=== PATIENT | male | born 1950 | race Caucasian/White ===

== ENCOUNTER 2017-03-09 14:10 | Outpatient (RCR) | payer MEDICARE, SELFPAY ==
[2017-03-09 14:59] LABS: Absolute Lymphocyte Count 1.88 X10^3/ul (0.83-4.51); Absolute Neutrophil Count 4.2 X10^3/uL (2.0-7.7); Basophil# 0.02 X10^3/uL; Basophil% 0.3 % (0-1); Eosinophil# 0.12 X10^3/uL; Eosinophils% 1.7 % (0-5); Hematocrit 41.4 % (40-54); Hemoglobin 14.1 g/dl (13.0-16.5); Lymphocyte # 1.88 X10^3/ul (4.0); Lymphocyte % 26.6 % (19-41); Mean Corp Hgb Conc 34.1 g/gl (32-36); Mean Corpuscular Hgb 30.7 pg (27.0-32.0); Mean Corpuscular Volume 90.2 fL (80-94); Mean Platelet Vol. 9.8 fl (6.2-12.0); Monocyte# 0.87 X10^3/uL; Monocyte% 12.3 % (0-10); Neutrophil # 4.15 X10^3/uL (2.7-7.7); Neutrophil % 58.8 % (47-70); Platelet Count 279 K/mm3 (150-450); RBC Distribution Width CV 12.3 % (11.6-14.6); Red Blood Count 4.59 M/mm3 (4.6-6.2); White Blood Count 7.1 K/mm3 (4.4-11.0)
[2017-03-09 15:04] LABS: POSITIVE COUNT NO; POSITIVE DIFFERENTIAL NO; POSITIVE MORPHOLOGY NO
[2017-03-09 15:27] LABS: AST(SGOT) 28 U/L (15-37); Alanine Aminotransfer ALT/SGPT 26 U/L (12-78); Alkaline Phosphatase 79 U/L (45-117); Anion Gap 5 (5-15); BUN 16 mg/dL (7-18); BUN/Creat Ratio 14.8 RATIO (10-20); Calcium,Total 9.2 mg/dL (8.5-10.1); Chloride 101 mmol/L (98-107); Creatinine, Serum 1.08 mg/dL (0.70-1.30); EST Glomerular Filtration Rate 73 mL/min (>60); Est Glom Filt Rate - Afr Amer 88 mL/min (>60); GGTP 37 U/L (15-85); Globulin 4.2 g/dL (2.2-4.2); Glucose 98 mg/dL (70-110); Potassium 3.6 mmol/L (3.5-5.1); Protein, Total 8.2 g/dL (6.4-8.2); Sodium Level 139 mmol/L (136-145)
== END 2017-03-09 14:30 | disposition home or self-care (01) ==
LOC: LAB 14:10
PROVIDERS: Family Provider Family Medicine; PCP Family Medicine
DX: Z48.23 Encounter for aftercare following liver transplant (principal); K76.9 Liver disease, unspecified; Z94.4 Liver transplant status; Z41.8 Encounter for other procedures for purposes other than remedying health state; E61.2 Magnesium deficiency; E83.30 Disorder of phosphorus metabolism, unspecified; Z79.3 Long term (current) use of hormonal contraceptives; Z79.891 Long term (current) use of opiate analgesic; Z79.899 Other long term (current) drug therapy
CPT/HCPCS: 36415; 80053; 80197; 82977; 85025

== ENCOUNTER 2017-04-19 14:30 | Outpatient (RCR) | payer MEDICARE, SELFPAY ==
[2017-04-19 15:49] LABS: Absolute Lymphocyte Count 1.68 X10^3/ul (0.83-4.51); Absolute Neutrophil Count 3.1 X10^3/uL (2.0-7.7); Basophil# 0.03 X10^3/uL; Basophil% 0.5 % (0-1); Eosinophil# 0.15 X10^3/uL; Eosinophils% 2.7 % (0-5); Hematocrit 39.6 % (40-54); Lymphocyte # 1.68 X10^3/ul (4.0); Lymphocyte % 30.3 % (19-41); Mean Corp Hgb Conc 35.4 g/gl (32-36); Mean Corpuscular Hgb 31.7 pg (27.0-32.0); Mean Corpuscular Volume 89.6 fL (80-94); Mean Platelet Vol. 10.5 fl (6.2-12.0); Monocyte# 0.62 X10^3/uL; Monocyte% 11.2 % (0-10); Neutrophil # 3.05 X10^3/uL (2.7-7.7); Neutrophil % 55.1 % (47-70); Platelet Count 223 K/mm3 (150-450); RBC Distribution Width CV 12.5 % (11.6-14.6); RBC Distribution Width SD 40.3 fl (35.1-43.9); Red Blood Count 4.42 M/mm3 (4.6-6.2); White Blood Count 5.5 K/mm3 (4.4-11.0)
[2017-04-19 16:00] LABS: POSITIVE COUNT NO; POSITIVE DIFFERENTIAL NO; POSITIVE MORPHOLOGY NO
[2017-04-19 16:33] LABS: ALB/GLOB Ratio 1.1 RATIO (0.9-2.4); AST(SGOT) 29 U/L (15-37); Alanine Aminotransfer ALT/SGPT 32 U/L (16-61); Albumin, Serum 3.9 g/dL (3.2-5.0); Alkaline Phosphatase 65 U/L (45-117); Anion Gap 8 (5-15); BUN 23 mg/dL (7-18); BUN/Creat Ratio 19.2 RATIO (10-20); Calcium,Total 8.9 mg/dL (8.5-10.1); Chloride 103 mmol/L (98-107); EST Glomerular Filtration Rate 65 mL/min (>60); Est Glom Filt Rate - Afr Amer 78 mL/min (>60); GGTP 33 U/L (15-85); Globulin 3.7 g/dL (2.2-4.2); Glucose 104 mg/dL (74-106); Magnesium 2.3 mg/dL (1.6-2.6); Phosphorus 3.6 mg/dL (2.5-4.9); Potassium 3.7 mmol/L (3.5-5.1); Protein, Total 7.6 g/dL (6.4-8.2); Sodium Level 140 mmol/L (136-145)
[2017-04-23 07:46] LABS: Tacrolimus (FK506) 2.3 ng/mL (2.0-20.0)
== END 2017-04-19 15:00 | disposition home or self-care (01) ==
LOC: LAB 14:30
PROVIDERS: Family Provider Family Medicine; PCP Family Medicine
DX: K76.9 Liver disease, unspecified (principal); Z48.23 Encounter for aftercare following liver transplant; Z94.4 Liver transplant status; Z41.8 Encounter for other procedures for purposes other than remedying health state; E61.2 Magnesium deficiency; R73.02 Impaired glucose tolerance (oral)
CPT/HCPCS: 36415; 80053; 80197; 82977; 83735; 84100; 85025

== ENCOUNTER 2017-06-13 09:28 | Outpatient (RCR) | payer MEDICARE, SELFPAY ==
[2017-06-13 10:04] LABS: Absolute Lymphocyte Count 1.87 X10^3/ul (0.83-4.51); Absolute Neutrophil Count 3.8 X10^3/uL (2.0-7.7); Basophil# 0.03 X10^3/uL; Basophil% 0.5 % (0-1); Eosinophil# 0.09 X10^3/uL; Eosinophils% 1.4 % (0-5); Hematocrit 40.3 % (40-54); Hemoglobin 14.5 g/dl (13.0-16.5); Lymphocyte # 1.87 X10^3/ul (4.0); Lymphocyte % 29.7 % (19-41); Mean Corpuscular Hgb 31.5 pg (27.0-32.0); Mean Corpuscular Volume 87.6 fL (80-94); Mean Platelet Vol. 10.1 fl (6.2-12.0); Monocyte# 0.53 X10^3/uL; Monocyte% 8.4 % (0-10); Neutrophil # 3.77 X10^3/uL (2.7-7.7); Neutrophil % 59.8 % (47-70); Platelet Count 229 K/mm3 (150-450); RBC Distribution Width CV 12.3 % (11.6-14.6); White Blood Count 6.3 K/mm3 (4.4-11.0)
[2017-06-13 10:05] LABS: POSITIVE COUNT NO; POSITIVE DIFFERENTIAL NO; POSITIVE MORPHOLOGY NO
[2017-06-13 10:32] LABS: ALB/GLOB Ratio 1.1 RATIO (0.9-2.4); AST(SGOT) 28 U/L (15-37); Alanine Aminotransfer ALT/SGPT 27 U/L (16-61); Alkaline Phosphatase 67 U/L (45-117); Anion Gap 5 (5-15); BUN 18 mg/dL (7-18); BUN/Creat Ratio 12.6 RATIO (10-20); Calcium,Total 8.7 mg/dL (8.5-10.1); Chloride 104 mmol/L (98-107); Creatinine, Serum 1.43 mg/dL (0.70-1.30); EST Glomerular Filtration Rate 53 mL/min (>60); Est Glom Filt Rate - Afr Amer 64 mL/min (>60); GGTP 30 U/L (15-85); Globulin 3.6 g/dL (2.2-4.2); Glucose 104 mg/dL (74-106); Magnesium 2.2 mg/dL (1.6-2.6); Potassium 3.3 mmol/L (3.5-5.1); Protein, Total 7.6 g/dL (6.4-8.2); Sodium Level 140 mmol/L (136-145)
[2017-06-13 10:35] LABS: Prograf-FK506 TO CCF/UNIV MAILED SPECIMEN
== END 2017-06-13 10:00 | disposition home or self-care (01) ==
LOC: LAB 09:28
PROVIDERS: Family Provider Family Medicine; PCP Family Medicine
DX: K76.9 Liver disease, unspecified (principal); Z48.23 Encounter for aftercare following liver transplant; Z94.4 Liver transplant status; Z41.8 Encounter for other procedures for purposes other than remedying health state; E61.2 Magnesium deficiency; R73.02 Impaired glucose tolerance (oral)
CPT/HCPCS: 36415; 80053; 82977; 83735; 84100; 85025

== ENCOUNTER 2017-07-06 10:04 | Outpatient (RCR) | payer MEDICARE, SELFPAY ==
[2017-07-06 11:09] LABS: Absolute Lymphocyte Count 1.75 X10^3/ul (0.83-4.51); Absolute Neutrophil Count 2.9 X10^3/uL (2.0-7.7); Basophil# 0.02 X10^3/uL; Basophil% 0.4 % (0-1); Eosinophils% 1.9 % (0-5); Hematocrit 41.6 % (40-54); Hemoglobin 14.5 g/dl (13.0-16.5); Lymphocyte # 1.75 X10^3/ul (4.0); Lymphocyte % 33.6 % (19-41); Mean Corp Hgb Conc 34.9 g/gl (32-36); Mean Corpuscular Hgb 31.3 pg (27.0-32.0); Mean Corpuscular Volume 89.7 fL (80-94); Mean Platelet Vol. 10.1 fl (6.2-12.0); Monocyte# 0.47 X10^3/uL; Neutrophil # 2.86 X10^3/uL (2.7-7.7); Neutrophil % 54.9 % (47-70); Platelet Count 241 K/mm3 (150-450); RBC Distribution Width CV 12.5 % (11.6-14.6); RBC Distribution Width SD 40.9 fl (35.1-43.9); Red Blood Count 4.64 M/mm3 (4.6-6.2); White Blood Count 5.2 K/mm3 (4.4-11.0)
[2017-07-06 11:12] LABS: POSITIVE COUNT NO; POSITIVE DIFFERENTIAL NO; POSITIVE MORPHOLOGY NO
[2017-07-06 12:07] LABS: ALB/GLOB Ratio 1.2 RATIO (0.9-2.4); AST(SGOT) 30 U/L (15-37); Alanine Aminotransfer ALT/SGPT 29 U/L (16-61); Alkaline Phosphatase 68 U/L (45-117); Anion Gap 5 (5-15); BUN 16 mg/dL (7-18); Calcium,Total 9.1 mg/dL (8.5-10.1); Chloride 103 mmol/L (98-107); Cholesterol 159 mg/dL (200); Creatinine, Serum 1.14 mg/dL (0.70-1.30); EST Glomerular Filtration Rate 68 mL/min (>60); Est Glom Filt Rate - Afr Amer 83 mL/min (>60); GGTP 34 U/L (15-85); Globulin 3.3 g/dL (2.2-4.2); Glucose 89 mg/dL (74-106); High Density Lipoprotein 48 mg/dL; Magnesium 2.1 mg/dL (1.6-2.6); Phosphorus 2.7 mg/dL (2.5-4.9); Potassium 3.7 mmol/L (3.5-5.1); Protein, Total 7.3 g/dL (6.4-8.2); Sodium Level 138 mmol/L (136-145); Triglycerides 121 mg/dL; Very Low Density Lipoprotein 24 mg/dL (5-40)
[2017-07-08 09:25] LABS: Tacrolimus (FK506) 3.1 ng/mL (2.0-20.0)
== END 2017-07-06 11:00 | disposition home or self-care (01) ==
LOC: LAB 10:04
PROVIDERS: Family Provider Family Medicine; PCP Family Medicine
DX: K76.9 Liver disease, unspecified (principal); Z48.23 Encounter for aftercare following liver transplant; Z94.4 Liver transplant status; Z41.8 Encounter for other procedures for purposes other than remedying health state; E61.2 Magnesium deficiency; R73.02 Impaired glucose tolerance (oral)
CPT/HCPCS: 80053; 80061; 80197; 82977; 83735; 84100; 85025

== ENCOUNTER 2017-07-08 18:46 | Emergency (ER) | payer MEDICARE, SELFPAY ==
[2017-07-08 18:47] VITALS: BP 138/97; PULSE 86; RESP 16; TEMP 36.8; O2SAT 96; BMI 23.0
--- NOTE | 2017-07-08 19:57 | RAD_ITS ---
STUDY: X-RAY - LEFT HAND REASON FOR EXAM: Male, 66 years old. Puncture wound. TECHNIQUE: 3 view(s) of the hand. COMPARISON: None. FINDINGS: Normal radiocarpal articulation. Normal distal radioulnar joint. Normal visualized carpal bones. Normal carpal articulations Normal carpometacarpal articulation of the thumb. Normal second through fifth carpometacarpal joints. Normal metacarpi. Normal metacarpophalangeal joint of the thumb. Normal interphalangeal joint of the thumb. Normal proximal and distal phalanges of the thumb. Normal metacarpophalangeal joints of the second through fifth fingers. Normal proximal and distal interphalangeal joints of the second through fifth fingers. Normal phalanges of the second through fifth fingers. The soft tissue structures are unremarkable. No radiopaque foreign body. RAD/Hand Min 3 Views IMPRESSION: Normal x-ray examination of the hand. Electronically Signed: Rohit Ghosh MD at 20:29 EDT , Service support ,
--- NOTE | 2017-07-08 19:58 | ED.VISSUMM ---
- ER Visit Summary Date of Service: 07/08/17 Chief Complaint: Left third finger injury History of Present Illness: The patient is a 66 M puncture wound left middle finger yesterday while planting. Metal wire through the finger. Tetanus more than 20 years ago. 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 Not a diabetic. No fevers. No drainage. No significant tenderness there is been increased swelling. Think he may be on Bactrim every 3 days for prophylaxis. Do for dose today. No allergies. Physical Examination: General: Alert and oriented ?3, no acute distress HEENT: Normocephalic, atraumatic. Moist mucosa membranes Neck: supple, nontender. Cardiovascular: Regular rate and rhythm, no murmurs Respiratory: Normal breath sounds, symmetric, no distress Abdomen: Soft, nontender, nondistended Extremities: Nontender, no edema, pulses intact ?4. Left hand: Puncture at the proximal phalanx volar third middle finger. There is slight swelling. There is no streaking into the hand. There is redness of the dorsal MCP. Neuro: no focal neurological deficits. Test Results: Left hand x-ray: No radiopaque foreign bodies Emergency Department Course and Treatment: Tetanus updated. Kanavel's 1 out of 4. I did outline the erythema. Left hand x-ray obtained. No radiopaque foreign bodies. Patient confirmed he is on Bactrim DS. He took tonight's dose in the ED. He started on Keflex. Given 10 day prescription. Discussed signs and symptoms of worsening cellulitis fevers to return to ED for evaluation. Patient understands and agrees with plan. Treatment Plan: [] Disposition: Discharge Impression: 1. Left middle finger puncture wound 2. Left middle finger cellulitis This note was generated with [employer] dictation software. It may contain incorrect words, spelling, and punctuation that were not noted in review of the chart prior to signing ED Disposition - Plan for ED Patient: Disposition: Home or Assisted Living Chief Complaint: Cellulitis Diagnosis: Puncture wound of left middle finger, Cellulitis of left middle finger Instructions: Discharge Instructions for Cellulitis, ED Wound Puncture General Prescriptions: Cephalexin [Keflex] 500 mg PO Q6 #40 capsule Smz/Tmp Ds [Bactrim Ds] 1 tablet PO BID #20 tablet Referrals: Asif Mullins MD [Primary Care Provider] - 3-5 Days
[2017-07-08] MEDS: Diphth,Pertuss(Acell),Tet Vac 0.5 ML Vial IM (20:31)
[2017-07-08] MEDS: Cephalexin 250 MG Capsule 500 MG PO (21:14)
[2017-07-08 21:16] VITALS: RESP 16
--- NOTE | 2017-07-08 21:17 | ED.RN ---
REVIEWED D/C INSTRUCTIONS, FOLLOW UP CARE, PRESCRIPTIONS, AND S/S THAT WOULD WARRANT A RETURN TO THE ED WITH PT. PT VERBALIZED AN UNDERSTANDING AND DENIES FURTHER QUESTIONS FOR THIS RN. PT SKIN P/W/D, RESP EVEN AND UNLABORED, PT A&O X 3, NO DISTRESS NOTED. PT AMBULATED OUT OF ED, GAIT STEADY.
== END 2017-07-08 21:18 | disposition home or self-care (01) ==
PROVIDERS: Emergency Provider Emergency Medicine; Family Provider Family Medicine; PCP Family Medicine
DX: S61.333A Puncture wound without foreign body of left middle finger with damage to nail, initial encounter (principal); L03.012 Cellulitis of left finger; W26.8XXA Contact with other sharp object(s), not elsewhere classified, initial encounter; Y93.H2 Activity, gardening and landscaping; Y92.9 Unspecified place or not applicable; Y99.9 Unspecified external cause status; Z94.4 Liver transplant status; Z85.05 Personal history of malignant neoplasm of liver; Z23 Encounter for immunization
CPT/HCPCS: 73130; 90471; 90715; 99283

== ENCOUNTER 2017-11-12 16:18 | Outpatient (RCR) | payer MEDICARE, SELFPAY ==
[2017-11-12 17:24] LABS: Absolute Lymphocyte Count 2.33 X10^3/ul (0.83-4.51); Absolute Neutrophil Count 3.7 X10^3/uL (2.0-7.7); Basophil# 0.04 X10^3/uL; Basophil% 0.6 % (0-1); Eosinophils% 1.5 % (0-5); Hematocrit 43.8 % (40-54); Hemoglobin 14.8 g/dl (13.0-16.5); Lymphocyte # 2.33 X10^3/ul (4.0); Mean Corp Hgb Conc 33.8 g/gl (32-36); Mean Corpuscular Hgb 30.6 pg (27.0-32.0); Mean Corpuscular Volume 90.5 fL (80-94); Mean Platelet Vol. 10.1 fl (6.2-12.0); Monocyte# 0.44 X10^3/uL; Monocyte% 6.6 % (0-10); Neutrophil # 3.73 X10^3/uL (2.7-7.7); Neutrophil % 56.1 % (47-70); Platelet Count 238 K/mm3 (150-450); RBC Distribution Width CV 12.6 % (11.6-14.6); RBC Distribution Width SD 41.6 fl (35.1-43.9); Red Blood Count 4.84 M/mm3 (4.6-6.2); White Blood Count 6.7 K/mm3 (4.4-11.0)
[2017-11-12 17:38] LABS: POSITIVE COUNT NO; POSITIVE DIFFERENTIAL NO; POSITIVE MORPHOLOGY NO
[2017-11-12 18:25] LABS: ALB/GLOB Ratio 1.1 RATIO (0.9-2.4); AST(SGOT) 36 U/L (15-37); Alanine Aminotransfer ALT/SGPT 38 U/L (16-61); Albumin, Serum 4.1 g/dL (3.2-5.0); Alkaline Phosphatase 72 U/L (45-117); Anion Gap 11 (5-15); BUN 18 mg/dL (7-18); BUN/Creat Ratio 14.5 RATIO (10-20); Chloride 100 mmol/L (98-107); Creatinine, Serum 1.24 mg/dL (0.70-1.30); EST Glomerular Filtration Rate 62 mL/min (>60); Est Glom Filt Rate - Afr Amer 75 mL/min (>60); GGTP 42 U/L (15-85); Globulin 3.9 g/dL (2.2-4.2); Glucose 87 mg/dL (74-106); Magnesium 2.3 mg/dL (1.6-2.6); Phosphorus 3.2 mg/dL (2.5-4.9); Potassium 3.6 mmol/L (3.5-5.1); Sodium Level 143 mmol/L (136-145)
[2017-11-16 08:52] LABS: Tacrolimus (FK506) 2.7 ng/mL (2.0-20.0)
== END 2017-11-12 17:00 | disposition home or self-care (01) ==
LOC: LAB 16:18
PROVIDERS: Family Provider Family Medicine; PCP Family Medicine
DX: K76.9 Liver disease, unspecified (principal); Z48.23 Encounter for aftercare following liver transplant; Z94.4 Liver transplant status; Z41.8 Encounter for other procedures for purposes other than remedying health state; E61.2 Magnesium deficiency; R73.02 Impaired glucose tolerance (oral)
CPT/HCPCS: 36415; 80053; 80197; 82977; 83735; 84100; 85025

== ENCOUNTER 2018-01-28 16:29 | Outpatient (RCR) | payer MEDICARE, SELFPAY ==
[2018-01-28 17:41] LABS: Prothrombin Time (Protime)PT. 13.5 SECONDS (11.7-14.9)
[2018-01-28 17:43] LABS: Absolute Neutrophil Count 4.5 X10^3/uL (2.0-7.7); Basophil# 0.02 X10^3/uL; Basophil% 0.3 % (0-1); Eosinophils% 1.4 % (0-5); Hematocrit 42.5 % (40-54); Hemoglobin 14.6 g/dl (13.0-16.5); Lymphocyte % 28.4 % (19-41); Mean Corp Hgb Conc 34.4 g/gl (32-36); Mean Corpuscular Hgb 30.8 pg (27.0-32.0); Mean Corpuscular Volume 89.7 fL (80-94); Mean Platelet Vol. 10.3 fl (6.2-12.0); Monocyte# 0.64 X10^3/uL; Monocyte% 8.6 % (0-10); Neutrophil # 4.53 X10^3/uL (2.7-7.7); Neutrophil % 61.2 % (47-70); POSITIVE COUNT NO; POSITIVE DIFFERENTIAL NO; POSITIVE MORPHOLOGY NO; Platelet Count 244 K/mm3 (150-450); RBC Distribution Width CV 12.5 % (11.6-14.6); RBC Distribution Width SD 40.6 fl (35.1-43.9); Red Blood Count 4.74 M/mm3 (4.6-6.2); White Blood Count 7.4 K/mm3 (4.4-11.0)
[2018-01-28 17:49] LABS: ALB/GLOB Ratio 1.1 RATIO (0.9-2.4); AST(SGOT) 27 U/L (15-37); Alanine Aminotransfer ALT/SGPT 29 U/L (16-61); Albumin, Serum 4.2 g/dL (3.2-5.0); Alkaline Phosphatase 71 U/L (45-117); Anion Gap 6 (5-15); BUN 14 mg/dL (7-18); BUN/Creat Ratio 12.7 RATIO (10-20); Calcium,Total 9.1 mg/dL (8.5-10.1); Chloride 99 mmol/L (98-107); Cholesterol 176 mg/dL (200); EST Glomerular Filtration Rate 71 mL/min (>60); Est Glom Filt Rate - Afr Amer 86 mL/min (>60); GGTP 39 U/L (15-85); Globulin 3.9 g/dL (2.2-4.2); Glucose 83 mg/dL (74-106); High Density Lipoprotein 45 mg/dL; Phosphorus 3.4 mg/dL (2.5-4.9); Potassium 3.7 mmol/L (3.5-5.1); Protein, Total 8.1 g/dL (6.4-8.2); Sodium Level 136 mmol/L (136-145); Triglycerides 161 mg/dL; Very Low Density Lipoprotein 32 mg/dL (5-40)
[2018-01-28 17:53] LABS: Partial Thromboplast Time 30.6 Seconds (24.1-36.2)
--- OUTSIDE RECORDS SUMMARY | 2018-03-12 15:49 | XMS RPT_ITS ---
:1950 Author Organization OHIP Care Team Providers Name Role Phone YULIANA SINGLETON Referring Unavailable Mullins, Asif Primary Care Unavailable YULIANA SINGLETON Attending Unavailable YULIANA SINGLETON Attending Unavailable Mullins, Asif Primary Care Unavailable YULIANA SINGLETON Referring Unavailable YULIANA SINGLETON Attending Unavailable YULIANA SINGLETON Referring Unavailable Mullins, Asif Primary Care Unavailable YULIANA SINGLETON Attending Unavailable YULIANA SINGLETON Referring Unavailable Mullins, Asif Primary Care Unavailable Mullins, Asif Primary Care Unavailable Vinicius Elliott Attending Unavailable YULIANA SINGLETON Attending Unavailable YULIANA SINGLETON Referring Unavailable Mullins, Asif Primary Care Unavailable YULIANA SINGLETON Attending Unavailable YULIANA SINGLETON Referring Unavailable Mullins, Asif Primary Care Unavailable YULIANA SINGLETON Attending Unavailable YULIANA SINGLETON Referring Unavailable Asif Mullins Primary Care Unavailable PROBLEMS PROBLEMS DATE TYPE CONDITION / CODE ATTENDING STATUS SOURCE 02/04/2018 Unknown Z48.23 - YULIANA SINGLETON Active [facility] Encounter for [facility] following liver Repository transplant / Z48.23(ICD-10) 02/04/2018 Unknown 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 [facility] metabolism, Hospital unspecified / Repository E83.30(ICD-10) 12/05/2017 Unknown K76.9 - Liver YULIANA SINGLETON Active [facility] disease, Community unspecified / Hospital K76.9(ICD-10) Repository 11/08/2017 Unknown S69.82XA - Other Vinicius Elliott Active [facility] specified Community injuries of left Hospital wrist, hand and Repository finger(s), initial encounter / S69.82XA(ICD-10) PROCEDURES PROCEDURES No Procedure Records FoundRESULTS RESULTS CBC W/DIFF, AUTOMATED Collected: 01/28/2018 Status: F Source: [place] 4:30 PM [facility] REPOSITORY TYPE CODE TESTS RESULT OUT OF RANGE REFERENCE UNITS LAB L100.1000 4.4-11.0 K/mm3 Normal WBC 7.4 LAB L100.1200 4.6-6.2 M/mm3 Normal RBC 4.74 LAB L100.1300 13.0-16.5 g/dl Normal HGB 14.6 LAB L100.1400 40-54 % Normal HCT 42.5 LAB L100.1500 80-94 fL Normal MCV 89.7 LAB L100.1600 27.0-32.0 pg Normal MCH 30.8 LAB L100.1700 32-36 g/gl Normal MCHC 34.4 LAB L100.1810 11.6-14.6 % Normal RDW CV 12.5 LAB L100.1820 35.1-43.9 fl Normal RDW SD 40.6 LAB L100.1900 150-450 K/mm3 Normal PLT 244 LAB L100.2000 6.2-12.0 fl Normal MPV 10.3 LAB L100.2100 47-70 % Normal NEUT% 61.2 LAB L100.2200 19-41 % Normal LY% 28.4 LAB L100.2300 0-10 % Normal MONO% 8.6 LAB L100.2400 0-5 % Normal EO% 1.4 LAB L100.2500 0-1 % Normal BASO% 0.3 LAB L100.2550 0.0-0.9 % Normal IM GRAN % 0.100 Result Comment: IG% - Immature Granulocytes (promyelocytes, myelocytes and metamyelocytes) > 1% indicates that a LEFT SHIFT is Present. LAB L100.2620 2.0-7.7 X10 3/uL Normal Absolute Neut 4.5 LAB L100.2720 0.83-4.51 X10 3/ul Normal Absolute Lymph 2.10 Performed By: #### L100.0100 #### [facility] [address] [place], [address] COMPREHENSIVE METABOLIC Collected: 01/28/2018 Status: F Source: [facility] 4:30 PM [facility] REPOSITORY Order Comment: Comments: [id number] HBV QUANT BY PCR SER FZ TYPE CODE TESTS RESULT OUT OF RANGE REFERENCE UNITS LAB L501.0100 74-106 mg/dL Normal GLU 83 Result Comment: Please note revised GLUCOSE reference range effective 2017. LAB L501.1000 7-18 mg/dL Normal BUN 14 LAB L501.1100 0.70-1.30 mg/dL Normal CREAT,SERUM 1.10 Result Comment: The validity of the calculated GFR AND GFRAA in patients over 70 years has not been determined. Clinical correlation is essential. LAB L501.1110 >60 mL/min Normal EST GFR 71 Result Comment: Non- GFR Calc LAB L501.1115 >60 mL/min Normal EST GFR - AA 86 Result Comment: GFR Calc LAB L501.1300 10-20 RATIO Normal BUN/CRE 12.7 LAB L501.1500 6.4-8.2 g/dL T Normal PROT 8.1 LAB L501.1800 3.2-5.0 g/dL Normal ALB 4.2 LAB L501.1950 2.2-4.2 g/dL Normal GLOB 3.9 LAB L501.2000 0.9-2.4 RATIO Normal A/G 1.1 LAB L501.2200 8.5-10.1 mg/dL CA Normal 9.1 LAB L501.4100 15-37 U/L Normal AST 27 LAB L501.4305 45-117 U/L Normal ALK P 71 LAB L501.4405 16-61 U/L Normal ALT 29 LAB L501.4600 0.20-1.00 mg/dL T Normal BILI 0.70 LAB L501.5300 136-145 mmol/L NA Normal 136 LAB L501.5600 3.5-5.1 mmol/L K Normal 3.7 LAB L501.5900 98-107 mmol/L CL Normal 99 LAB L501.6100 21.0-32.0 mmol/L Normal CO2 31.0 LAB L501.6200 5-15 Normal GAP 6 Performed By: #### L500.4050, L500.4100, L501.2300, L501.5100, L501.5200 #### [facility] [address] [place], [place], [id number] LIPID PROFILE Collected: 01/28/2018 Status: F Source: [place] 4:30 PM [facility] REPOSITORY Order Comment: Comments: [id number] HBV QUANT BY PCR SER FZ TYPE CODE TESTS RESULT OUT OF RANGE REFERENCE UNITS LAB L501.4900 200 mg/dL Normal CHOL 176 Result Comment: <200 mg/dL Desirable 200-240 mg/dL Borderline >240 mg/dL High Risk LAB L501.5000 mg/dL Normal TRIG 161 Result Comment: The drugs N-Acetylcysteine and Metamizole may falsely depress this assay. Serum Triglycerides Reference Interval Normal <150 mg/dL Borderline high 150 - 199 mg/dL High 200 - 499 mg/dL Very High > or = 500 mg/dL LAB L501.6400 mg/dL Normal HDL 45 Result Comment: The drugs N-Acetylcysteine and Metamizole may falsely depress this assay. Reference Range HDL <40 mg/dL Low HDL Cholesterol HDL >or= 60 mg/dL High HDL Cholesterol LAB L501.6500 0-130 mg/dL Normal LDL 99 LAB L501.6600 5-40 mg/dL Normal VLDL 32 Performed By: #### L500.4050, L500.4100, L501.2300, L501.5100, L501.5200 #### [facility] [address] [place], [address] PHOSPHORUS Collected: 01/28/2018 Status: F Source: [place] 4:30 PM [facility] REPOSITORY Order Comment: Comments: [id number] HBV QUANT BY PCR SER FZ TYPE CODE TESTS RESULT OUT OF RANGE REFERENCE UNITS LAB L501.2300 2.5-4.9 mg/dL Normal PHOS 3.4 Performed By: #### L500.4050, L500.4100, L501.2300, L501.5100, L501.5200 #### [facility] [address] [place], [place], [address] GGTP Collected: 01/28/2018 Status: F Source: [place] 4:30 PM [facility] REPOSITORY Order Comment: Comments: [id number] HBV QUANT BY PCR SER FZ TYPE CODE TESTS RESULT OUT OF RANGE REFERENCE UNITS LAB L501.5100 15-85 U/L Normal GGTP 39 Performed By: #### L500.4050, L500.4100, L501.2300, L501.5100, L501.5200 #### [facility] [place], [place], [id number] MAGNESIUM Collected: 01/28/2018 Status: F Source: [place] 4:30 PM [facility] REPOSITORY Order Comment: Comments: [id number] HBV QUANT BY PCR SER FZ TYPE CODE TESTS RESULT OUT OF RANGE REFERENCE UNITS LAB L501.5200 1.6-2.6 mg/dL Normal MG 2.0 Performed By: #### L500.4050, L500.4100, L501.2300, L501.5100, L501.5200 #### [facility] [address] [place], [place], [id number] PROTHROMBIN TIME W/INR Collected: 01/28/2018 Status: F Source: [place] 4:30 PM [facility] REPOSITORY TYPE CODE TESTS RESULT OUT OF RANGE REFERENCE UNITS LAB L300.4150 11.7-14.9 SECONDS Normal PROTIME 13.5 LAB L300.4200 Normal INR 1.0 Performed By: #### L300.3900, L300.4310 #### [facility] [address] [place], [address] PARTIAL THROMBOPLAST Collected: 01/28/2018 Status: F Source: [place] TIME 4:30 PM [facility] REPOSITORY TYPE CODE TESTS RESULT OUT OF RANGE REFERENCE UNITS LAB L300.4310 24.1-36.2 Seconds Normal PTT 30.6 Performed By: #### L300.3900, L300.4310 #### [facility] [address] [place], [address] MISCELLANEOUS LAB Collected: 01/28/2018 Status: F Source: [place] PROCEDURE 4:30 PM [facility] REPOSITORY Order Comment: Comments: [id number] HBV QUANT BY PCR SER FZ Test(s) Ordered: [id number] HBV QUANT BY PCR SER FZ TYPE CODE TESTS RESULT OUT OF RANGE REFERENCE UNITS LAB L801.1541 Normal MISC LAB TEST Result Comment: TEST RESULT LIMITS HBV Real-Time PCR, Quant HBV IU/mL HBV DNA not detected IU/mL log10 HBV IU/mL Unable to calculate result since non-numeric result obtained for component test. Test Information: The reportable range for this assay is 10 IU/mL to 1 billion IU/mL. TESTING PERFORMED AT [facility]. ORIGINAL REPORT ON FILE IN LAB CONTAINS ADDITIONAL TEST SITE INFORMATION. Performed By: #### L801.1541 #### [facility] [address] [place], [address] TACROLIMUS (PROGRAF) Collected: 01/28/2018 Status: F Source: [place] 4:30 PM [facility] REPOSITORY TYPE CODE TESTS RESULT OUT OF RANGE REFERENCE UNITS LAB L3380.1100 2.0-20.0 ng/mL Normal TACROLIMUS 3.0 Result Comment: Trough (immediately following transplant) 15.0 Trough (steady state, 2 weeks or more after transplant): 3.0 - 8.0 Detection Limit = 1.0 Performed by LC-MS/MS technology. Performed at: [address] [id number] Metal Miner: Ahmet Stewart MD, Phone: [phone] Performed By: #### L3380.1000 #### [facility] (refer to report for specific site) refer to report for address and phone number CBC W/DIFF, AUTOMATED Collected: 11/12/2017 Status: F Source: [place] 4:21 PM [facility] REPOSITORY TYPE CODE TESTS RESULT OUT OF RANGE REFERENCE UNITS LAB L100.1000 4.4-11.0 K/mm3 Normal WBC 6.7 LAB L100.1200 4.6-6.2 M/mm3 Normal RBC 4.84 LAB L100.1300 13.0-16.5 g/dl Normal HGB 14.8 LAB L100.1400 40-54 % Normal HCT 43.8 LAB L100.1500 80-94 fL Normal MCV 90.5 LAB L100.1600 27.0-32.0 pg Normal MCH 30.6 LAB L100.1700 32-36 g/gl Normal MCHC 33.8 LAB L100.1810 11.6-14.6 % Normal RDW CV 12.6 LAB L100.1820 35.1-43.9 fl Normal RDW SD 41.6 LAB L100.1900 150-450 K/mm3 Normal PLT 238 LAB L100.2000 6.2-12.0 fl Normal MPV 10.1 LAB L100.2100 47-70 % Normal NEUT% 56.1 LAB L100.2200 19-41 % Normal LY% 35.0 LAB L100.2300 0-10 % Normal MONO% 6.6 LAB L100.2400 0-5 % Normal EO% 1.5 LAB L100.2500 0-1 % Normal BASO% 0.6 LAB L100.2550 0.0-0.9 % Normal IM GRAN % 0.200 Result Comment: IG% - Immature Granulocytes (promyelocytes, myelocytes and metamyelocytes) > 1% indicates that a LEFT SHIFT is Present. LAB L100.2620 2.0-7.7 X10 3/uL Normal Absolute Neut 3.7 LAB L100.2720 0.83-4.51 X10 3/ul Normal Absolute Lymph 2.33 Performed By: #### L100.0100 #### [facility] [address] [place], [address] COMPREHENSIVE METABOLIC Collected: 11/12/2017 Status: F Source: [place] [facility] 4:21 PM [facility] REPOSITORY TYPE CODE TESTS RESULT OUT OF RANGE REFERENCE UNITS LAB L501.0100 74-106 mg/dL Normal GLU 87 Result Comment: Please note revised GLUCOSE reference range effective 2017. LAB L501.1000 7-18 mg/dL Normal BUN 18 LAB L501.1100 0.70-1.30 mg/dL Normal CREAT,SERUM 1.24 Result Comment: The validity of the calculated GFR AND GFRAA in patients over 70 years has not been determined. Clinical correlation is essential. LAB L501.1110 >60 mL/min Normal EST GFR 62 Result Comment: Non- GFR Calc LAB L501.1115 >60 mL/min Normal EST GFR - AA 75 Result Comment: GFR Calc LAB L501.1300 10-20 RATIO Normal BUN/CRE 14.5 LAB L501.1500 6.4-8.2 g/dL T Normal PROT 8.0 LAB L501.1800 3.2-5.0 g/dL Normal ALB 4.1 LAB L501.1950 2.2-4.2 g/dL Normal GLOB 3.9 LAB L501.2000 0.9-2.4 RATIO Normal A/G 1.1 LAB L501.2200 8.5-10.1 mg/dL CA Normal 9.0 LAB L501.4100 15-37 U/L Normal AST 36 LAB L501.4305 45-117 U/L Normal ALK P 72 LAB L501.4405 16-61 U/L Normal ALT 38 LAB L501.4600 0.20-1.00 mg/dL T Normal BILI 0.40 LAB L501.5300 136-145 mmol/L NA Normal 143 LAB L501.5600 3.5-5.1 mmol/L K Normal 3.6 LAB L501.5900 98-107 mmol/L CL Normal 100 LAB L501.6100 21.0-32.0 mmol/L Normal CO2 32.0 LAB L501.6200 5-15 Normal GAP 11 Performed By: #### L500.4050, L501.2300, L501.5100, L501.5200 #### [facility] [address] [place], [address] PHOSPHORUS Collected: 11/12/2017 Status: F Source: [place] 4:21 PM [facility] REPOSITORY TYPE CODE TESTS RESULT OUT OF RANGE REFERENCE UNITS LAB L501.2300 2.5-4.9 mg/dL Normal PHOS 3.2 Performed By: #### L500.4050, L501.2300, L501.5100, L501.5200 #### [facility] [address] [place], [address] GGTP Collected: 11/12/2017 Status: F Source: [place] 4:21 PM [facility] REPOSITORY TYPE CODE TESTS RESULT OUT OF RANGE REFERENCE UNITS LAB L501.5100 15-85 U/L Normal GGTP 42 Performed By: #### L500.4050, L501.2300, L501.5100, L501.5200 #### [facility] [address] [place], [address] MAGNESIUM Collected: 11/12/2017 Status: F Source: [place] 4:21 PM [facility] REPOSITORY TYPE CODE TESTS RESULT OUT OF RANGE REFERENCE UNITS LAB L501.5200 1.6-2.6 mg/dL Normal MG 2.3 Performed By: #### L500.4050, L501.2300, L501.5100, L501.5200 #### [facility] [address] [place], [address] TACROLIMUS (PROGRAF) Collected: 11/12/2017 Status: F Source: [place] 4:21 PM [facility] REPOSITORY TYPE CODE TESTS RESULT OUT OF RANGE REFERENCE UNITS LAB L3380.1100 2.0-20.0 ng/mL Normal TACROLIMUS 2.7 Result Comment: Trough (immediately following transplant) 15.0 Trough (steady state, 2 weeks or more after transplant): 3.0 - 8.0 Detection Limit = 1.0 Performed by LC-MS/MS technology. Performed at: [facility] [id number] Metal Miner: Guero Almonte MD, Phone: [phone] Performed By: #### L3380.1000 #### [facility] (refer to report for specific site) refer to report for address and phone number EMERGENCY DEPARTMENT Observed: 07/08/2017 Status: F Source: [place] SUMMARY 9:01 PM [facility] REPOSITORY [facility] Medical Records Department [address] [place] [address] Emergency Department Summary 07/08/171957 MR#: [id number] Acct: [id number] Name: RODGER CHENG Rep #: [id number] : 1950 66 From: Vinicius Lockhart PCP: Harpreet BAILEY,Asif Status: REG ER - ER Visit Summary Date of Service: 07/08/17 Chief Complaint: Left third finger injury History of Present Illness: The patient is a 66 M puncture wound left middle finger yesterday while planting. Metal wire through the finger. Tetanus more than 20 years ago. 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 Not a diabetic. No fevers. No drainage. No significant tenderness there is been increased swelling. Think he may be on Bactrim every 3 days for prophylaxis. Do for dose today. No allergies. Physical Examination: General: Alert and oriented 3, no acute distress HEENT: Normocephalic, atraumatic. Moist mucosa membranes Neck: supple, nontender. Cardiovascular: Regular rate and rhythm, no murmurs Respiratory: Normal breath sounds, symmetric, no distress Abdomen: Soft, nontender, nondistended Extremities: Nontender, no edema, pulses intact 4. Left hand: Puncture at the proximal phalanx volar third middle finger. There is slight swelling. There is no streaking into the hand. There is redness of the dorsal MCP. Neuro: no focal neurological deficits. Test Results: Left hand x-ray: No radiopaque foreign bodies Emergency Department Course and Treatment: Tetanus updated. Kanavel's 1 out of 4. I did outline the erythema. Left hand x-ray obtained. No radiopaque foreign bodies. Patient confirmed he is on Bactrim DS. He took tonight's dose in the ED. He started on Keflex. Given 10 day prescription. Discussed signs and symptoms of worsening cellulitis fevers to return to ED for evaluation. Patient understands and agrees with plan. Treatment Plan: [] Disposition: Discharge Impression: 1. Left middle finger puncture wound 2. Left middle finger cellulitis This note was generated with MysteryD dictation software. It may contain incorrect words, spelling, and punctuation that were not noted in review of the chart prior to signing ED Disposition - Plan for ED Patient: Disposition: Home or Assisted Living Chief Complaint: Cellulitis Diagnosis: Puncture wound of left middle finger, Cellulitis of left middle finger Instructions: Discharge Instructions for Cellulitis, ED Wound Puncture General Prescriptions: Cephalexin [Keflex] 500 mg PO Q6 #40 capsule Smz/Tmp Ds [Bactrim Ds] 1 tablet PO BID #20 tablet Referrals: Asif Mullins MD [Primary Care Provider] - 3-5 Days What to do if you have Problems For any increased pain, shortness of breath, bleeding, nausea or vomiting, chest pain, or any unexpected problems, contact your Primary Care Provider. Call [facility] ([phone]) or report to the closest Emergency Room. Call 911 if necessary. 07/08/17 2101 <Electronically signed by iVnicius Lockhart> Date Vinicius Lockhart Cosigner Signature (If Indicated): Date CC: Asif Mullins MD HAND MIN 3 VIEWS Observed: 07/08/2017 Status: F Source: [place] 7:58 PM [facility] REPOSITORY [facility] Imaging Services [facility] [place] [address] Hand Min 3 Views MR#: [id number] Acct: [id number] Name: RODGER CHENG Rep #: [id number] : 1950 M 66 From: Rohit Ghosh MD PCP: Asif Mullins MD Status: PRE ER Study: Hand Min 3 Views Date of Exam: 07/08/17 Exam# [id number] Ordering Dr: Vinicius Elliott DO STUDY: X-RAY - LEFT HAND REASON FOR EXAM: Male, 66 years old. Puncture wound. TECHNIQUE: 3 view(s) of the hand. COMPARISON: None. FINDINGS: Normal radiocarpal articulation. Normal distal radioulnar joint. Normal visualized carpal bones. Normal carpal articulations Normal carpometacarpal articulation of the thumb. Normal second through fifth carpometacarpal joints. Normal metacarpi. Normal metacarpophalangeal joint of the thumb. Normal interphalangeal joint of the thumb. Normal proximal and distal phalanges of the thumb. Normal metacarpophalangeal joints of the second through fifth fingers. Normal proximal and distal interphalangeal joints of the second through fifth fingers. Normal phalanges of the second through fifth fingers. The soft tissue structures are unremarkable. No radiopaque foreign body. RAD/Hand Min 3 Views IMPRESSION: Normal x-ray examination of the hand. 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 CBC W/DIFF, AUTOMATED Collected: 07/06/2017 Status: F Source: [place] 10:13 AM [facility] REPOSITORY TYPE CODE TESTS RESULT OUT OF RANGE REFERENCE UNITS LAB L100.1000 4.4-11.0 K/mm3 Normal WBC 5.2 LAB L100.1200 4.6-6.2 M/mm3 Normal RBC 4.64 LAB L100.1300 13.0-16.5 g/dl Normal HGB 14.5 LAB L100.1400 40-54 % Normal HCT 41.6 LAB L100.1500 80-94 fL Normal MCV 89.7 LAB L100.1600 27.0-32.0 pg Normal MCH 31.3 LAB L100.1700 32-36 g/gl Normal MCHC 34.9 LAB L100.1810 11.6-14.6 % Normal RDW CV 12.5 LAB L100.1820 35.1-43.9 fl Normal RDW SD 40.9 LAB L100.1900 150-450 K/mm3 Normal PLT 241 LAB L100.2000 6.2-12.0 fl Normal MPV 10.1 LAB L100.2100 47-70 % Normal NEUT% 54.9 LAB L100.2200 19-41 % Normal LY% 33.6 LAB L100.2300 0-10 % Normal MONO% 9.0 LAB L100.2400 0-5 % Normal EO% 1.9 LAB L100.2500 0-1 % Normal BASO% 0.4 LAB L100.2550 0.0-0.9 % Normal IM GRAN % 0.200 Result Comment: IG% - Immature Granulocytes (promyelocytes, myelocytes and metamyelocytes) > 1% indicates that a LEFT SHIFT is Present. LAB L100.2620 2.0-7.7 X10 3/uL Normal Absolute Neut 2.9 LAB L100.2720 0.83-4.51 X10 3/ul Normal Absolute Lymph 1.75 Performed By: #### L100.0100 #### [facility] [address] [place], [place], [address] COMPREHENSIVE METABOLIC Collected: 07/06/2017 Status: F Source: [facility] 10:13 AM [facility] REPOSITORY Order Comment: Comments: [id number] HBV QUANT SER. FZ TYPE CODE TESTS RESULT OUT OF RANGE REFERENCE UNITS LAB L501.0100 74-106 mg/dL Normal GLU 89 Result Comment: Please note revised GLUCOSE reference range effective 2017. LAB L501.1000 7-18 mg/dL Normal BUN 16 LAB L501.1100 0.70-1.30 mg/dL Normal CREAT,SERUM 1.14 Result Comment: The validity of the calculated GFR AND GFRAA in patients over 70 years has not been determined. Clinical correlation is essential. LAB L501.1110 >60 mL/min Normal EST GFR 68 Result Comment: Non- GFR Calc LAB L501.1115 >60 mL/min Normal EST GFR - AA 83 Result Comment: GFR Calc LAB L501.1300 10-20 RATIO Normal BUN/CRE 14.0 LAB L501.1500 6.4-8.2 g/dL T Normal PROT 7.3 LAB L501.1800 3.2-5.0 g/dL Normal ALB 4.0 LAB L501.1950 2.2-4.2 g/dL Normal GLOB 3.3 LAB L501.2000 0.9-2.4 RATIO Normal A/G 1.2 LAB L501.2200 8.5-10.1 mg/dL CA Normal 9.1 LAB L501.4100 15-37 U/L Normal AST 30 LAB L501.4305 45-117 U/L Normal ALK P 68 LAB L501.4405 16-61 U/L Normal ALT 29 LAB L501.4600 0.20-1.00 mg/dL T Normal BILI 0.80 LAB L501.5300 136-145 mmol/L NA Normal 138 LAB L501.5600 3.5-5.1 mmol/L K Normal 3.7 LAB L501.5900 98-107 mmol/L CL Normal 103 LAB L501.6100 21.0-32.0 mmol/L Normal CO2 30.0 LAB L501.6200 5-15 Normal GAP 5 Performed By: #### L500.4050, L500.4100, L501.2300, L501.5100, L501.5200 #### [facility] [address] [place], [address] LIPID PROFILE Collected: 07/06/2017 Status: F Source: [place] 10:13 AM [facility] REPOSITORY Order Comment: Comments: [id number] HBV QUANT SER. FZ TYPE CODE TESTS RESULT OUT OF RANGE REFERENCE UNITS LAB L501.4900 200 mg/dL Normal CHOL 159 Result Comment: <200 mg/dL Desirable 200-240 mg/dL Borderline >240 mg/dL High Risk LAB L501.5000 mg/dL Normal TRIG 121 Result Comment: The drugs N-Acetylcysteine and Metamizole may falsely depress this assay. Serum Triglycerides Reference Interval Normal <150 mg/dL Borderline high 150 - 199 mg/dL High 200 - 499 mg/dL Very High > or = 500 mg/dL LAB L501.6400 mg/dL Normal HDL 48 Result Comment: The drugs N-Acetylcysteine and Metamizole may falsely depress this assay. Reference Range HDL <40 mg/dL Low HDL Cholesterol HDL >or= 60 mg/dL High HDL Cholesterol LAB L501.6500 0-130 mg/dL Normal LDL 87 LAB L501.6600 5-40 mg/dL Normal VLDL 24 Performed By: #### L500.4050, L500.4100, L501.2300, L501.5100, L501.5200 #### [facility] [address] [place], [place], [address] PHOSPHORUS Collected: 07/06/2017 Status: F Source: [place] 10:13 [facility] [place]POSIT[place] Order Comment: Comments: [id number] HBV QUANT SER. FZ TYPE CODE TESTS RESULT OUT OF RANGE REFERENCE UNITS LAB L501.2300 2.5-4.9 mg/dL Normal PHOS 2.7 Performed By: #### L500.4050, L500.4100, L501.2300, L501.5100, L501.5200 #### [facility] [address] [place], [place], [id number] GGTP Collected: 07/06/2017 Status: F Source: [place] 10:13 AM [facility] REPOSITORY Order Comment: Comments: [id number] HBV QUANT SER. FZ TYPE CODE TESTS RESULT OUT OF RANGE REFERENCE UNITS LAB L501.5100 15-85 U/L Normal GGTP 34 Performed By: #### L500.4050, L500.4100, L501.2300, L501.5100, L501.5200 #### [facility] [address] [place], [place], [address] MAGNESIUM Collected: 07/06/2017 Status: F Source: [place] 10:13 AM [facility] REPOSITORY Order Comment: Comments: [id number] HBV QUANT SER. FZ TYPE CODE TESTS RESULT OUT OF RANGE REFERENCE UNITS LAB L501.5200 1.6-2.6 mg/dL Normal MG 2.1 Performed By: #### L500.4050, L500.4100, L501.2300, L501.5100, L501.5200 #### [facility] [address] [place], [address] TACROLIMUS (PROGRAF) Collected: 07/06/2017 Status: F Source: [place] 10:13 AM [facility] REPOSITORY TYPE CODE TESTS RESULT OUT OF RANGE REFERENCE UNITS LAB L3380.1100 2.0-20.0 ng/mL Normal TACROLIMUS 3.1 Result Comment: Trough (immediately following transplant) 15.0 Trough (steady state, 2 weeks or more after transplant): 3.0 - 8.0 Detection Limit = 1.0 Performed by LC-MS/MS technology. Performed at: [address] [id number] Metal Miner: Guero Almonte MD, Phone: [phone] Performed By: #### L3380.1000 #### [facility] (refer to report for specific site) refer to report for address and phone number MISCELLANEOUS LAB Collected: 07/06/2017 Status: F Source: [place] PROCEDURE 10:13 AM [facility] REPOSITORY Order Comment: Comments: [id number] HBV QUANT SER. FZ Test(s) Ordered: [id number] HBV QUANT SER. FZ TYPE CODE TESTS RESULT OUT OF RANGE REFERENCE UNITS LAB L801.1541 Normal [facility] TEST Result Comment: TEST UNITS HBV Real-Time PCR, Quant HBV IU/mL HBV DNA not detected IU/mL log10 HBV IU/mL Unable to calculate result since non-numeric result obtained for 0component test. Test Information: The reportable range for this assay is 10 IU/mL to 1 billion IU/mL. TESTING PERFORMED AT [facility]. ORIGINAL REPORT ON FILE IN LAB CONTAINS ADDITIONAL TEST SITE INFORMATION. Performed By: #### L801.1541 #### [facility] [address] [place], [address] TACROLIMUS / [id number] Collected: 06/15/2017 Status: F Source: [place] 9:35 AM [facility] REPOSITORY TYPE CODE TESTS RESULT OUT OF REFERENCE UNITS RANGE LAB FK506 5.0-20.0 ng/mL Low Tacrolimus / 2.4 FK506 Result Comment: These reference ranges are provided as a general recommendation. Individualized target levels for a given patient will depend on many factors (including the type of organ transplant, ti me since transplantation, concurrent medications, and other clinical factors), and should be assessed by those health care providers experienced in the management of immunosuppression. Reference ranges and high/low indicator flags are provided as general guidelines only. The treating physician must determine appropriate target levels/dosing based on the specific clinical situation. Test performed by chemiluminescent immunoassay using [employer] Generator. Performed By: #### FK506 #### [facility] [address] [place], [place] [address] CBC W/DIFF, AUTOMATED Collected: 06/13/2017 Status: F Source: [place] 9:35 AM [facility] REPOSITORY TYPE CODE TESTS RESULT OUT OF RANGE REFERENCE UNITS LAB L100.1000 4.4-11.0 K/mm3 Normal WBC 6.3 LAB L100.1200 4.6-6.2 M/mm3 Normal RBC 4.60 LAB L100.1300 13.0-16.5 g/dl Normal HGB 14.5 LAB L100.1400 40-54 % Normal HCT 40.3 LAB L100.1500 80-94 fL Normal MCV 87.6 LAB L100.1600 27.0-32.0 pg Normal MCH 31.5 LAB L100.1700 32-36 g/gl Normal MCHC 36.0 LAB L100.1810 11.6-14.6 % Normal RDW CV 12.3 LAB L100.1820 35.1-43.9 fl Normal RDW SD 39.0 LAB L100.1900 150-450 K/mm3 Normal PLT 229 LAB L100.2000 6.2-12.0 fl Normal MPV 10.1 LAB L100.2100 47-70 % Normal NEUT% 59.8 LAB L100.2200 19-41 % Normal LY% 29.7 LAB L100.2300 0-10 % Normal MONO% 8.4 LAB L100.2400 0-5 % Normal EO% 1.4 LAB L100.2500 0-1 % Normal BASO% 0.5 LAB L100.2550 0.0-0.9 % Normal IM GRAN % 0.200 Result Comment: IG% - Immature Granulocytes (promyelocytes, myelocytes and metamyelocytes) > 1% indicates that a LEFT SHIFT is Present. LAB L100.2620 2.0-7.7 X10 3/uL Normal Absolute Neut 3.8 LAB L100.2720 0.83-4.51 X10 3/ul Normal Absolute Lymph 1.87 Performed By: #### L100.0100 #### [facility] [address] [place], [address] COMPREHENSIVE METABOLIC Collected: 06/13/2017 Status: F Source: [facility] 9:35 AM [facility] REPOSITORY TYPE CODE TESTS RESULT OUT OF RANGE REFERENCE UNITS LAB L501.0100 74-106 mg/dL Normal GLU 104 Result Comment: Fasting Glucose result from 100 to 125 mg/dL suggests IMPAIRED HOMEOSTASIS per A.D.A. criteria. Please note revised GLUCOSE reference range effective 2017. LAB L501.1000 7-18 mg/dL Normal BUN 18 LAB L501.1100 0.70-1.30 mg/dL High CREAT,SERUM 1.43 Result Comment: The validity of the calculated GFR AND GFRAA in patients over 70 years has not been determined. Clinical correlation is essential. LAB L501.1110 >60 mL/min Low EST GFR 53 Result Comment: Non- GFR Calc LAB L501.1115 >60 mL/min Normal EST GFR - AA 64 Result Comment: GFR Calc LAB L501.1300 10-20 RATIO Normal BUN/CRE 12.6 LAB L501.1500 6.4-8.2 g/dL T Normal PROT 7.6 LAB L501.1800 3.2-5.0 g/dL Normal ALB 4.0 LAB L501.1950 2.2-4.2 g/dL Normal GLOB 3.6 LAB L501.2000 0.9-2.4 RATIO Normal A/G 1.1 LAB L501.2200 8.5-10.1 mg/dL CA Normal 8.7 LAB L501.4100 15-37 U/L Normal AST 28 LAB L501.4305 45-117 U/L Normal ALK P 67 LAB L501.4405 16-61 U/L Normal ALT 27 Result Comment: Please note revised ALT reference range effective 2017. LAB L501.4600 0.20-1.00 mg/dL Normal T BILI 0.50 LAB L501.5300 136-145 mmol/L Normal NA 140 LAB L501.5600 3.5-5.1 mmol/L Low K 3.3 LAB L501.5900 98-107 mmol/L Normal CL 104 LAB L501.6100 21.0-32.0 mmol/L Normal CO2 31.0 LAB L501.6200 5-15 Normal GAP 5 Performed By: #### L500.4050, L501.2300, L501.5100, L501.5200 #### [facility] [address] [place], [place], [address] PHOSPHORUS Collected: 06/13/2017 Status: F Source: [place] 9:35 AM [facility] REPOSITORY TYPE CODE TESTS RESULT OUT OF RANGE REFERENCE UNITS LAB L501.2300 2.5-4.9 mg/dL Normal PHOS 3.0 Performed By: #### L500.4050, L501.2300, L501.5100, L501.5200 #### [facility] [address] [place], [address] GGTP Collected: 06/13/2017 Status: F Source: [place] 9:35 AM [facility] REPOSITORY TYPE CODE TESTS RESULT OUT OF RANGE REFERENCE UNITS LAB L501.5100 15-85 U/L Normal GGTP 30 Performed By: #### L500.4050, L501.2300, L501.5100, L501.5200 #### [facility] [address] [place], [place], [address] MAGNESIUM Collected: 06/13/2017 Status: F Source: [place] 9:35 AM [facility] REPOSITORY TYPE CODE TESTS RESULT OUT OF RANGE REFERENCE UNITS LAB L501.5200 1.6-2.6 mg/dL Normal MG 2.2 Result Comment: Please note revised Magnesium reference range effective 2017. Performed By: #### L500.4050, L501.2300, L501.5100, L501.5200 #### [facility] [address] [place], [address] CBC W/DIFF, AUTOMATED Collected: 04/19/2017 Status: F Source: [place] 2:50 PM [facility] REPOSITORY TYPE CODE TESTS RESULT OUT OF RANGE REFERENCE UNITS LAB L100.1000 4.4-11.0 K/mm3 Normal WBC 5.5 LAB L100.1200 4.6-6.2 M/mm3 Low RBC 4.42 LAB L100.1300 13.0-16.5 g/dl Normal HGB 14.0 LAB L100.1400 40-54 % Low HCT 39.6 LAB L100.1500 80-94 fL Normal MCV 89.6 LAB L100.1600 27.0-32.0 pg Normal MCH 31.7 LAB L100.1700 32-36 g/gl Normal MCHC 35.4 LAB L100.1810 11.6-14.6 % Normal RDW CV 12.5 LAB L100.1820 35.1-43.9 fl Normal RDW SD 40.3 LAB L100.1900 150-450 K/mm3 Normal PLT 223 LAB L100.2000 6.2-12.0 fl Normal MPV 10.5 LAB L100.2100 47-70 % Normal NEUT% 55.1 LAB L100.2200 19-41 % Normal LY% 30.3 LAB L100.2300 0-10 % High MONO% 11.2 LAB L100.2400 0-5 % Normal EO% 2.7 LAB L100.2500 0-1 % Normal BASO% 0.5 LAB L100.2550 0.0-0.9 % Normal IM GRAN % 0.200 Result Comment: IG% - Immature Granulocytes (promyelocytes, myelocytes and metamyelocytes) > 1% indicates that a LEFT SHIFT is Present. LAB L100.2620 2.0-7.7 X10 3/uL Normal Absolute Neut 3.1 LAB L100.2720 0.83-4.51 X10 3/ul Normal Absolute Lymph 1.68 Performed By: #### L100.0100 #### [facility] [address] [place], [address] MISCELLANEOUS LAB Collected: 04/19/2017 Status: F Source: [place] 2:50 PM [facility] REPOSITORY Order Comment: Comments: [id number] HBV QUANT Test(s) Ordered: [id number] HBV QUANT TYPE CODE TESTS RESULT OUT OF RANGE REFERENCE UNITS LAB L801.1541 Normal [facility] Result Comment: TEST RESULT UNITS REF INTERVAL HBV RT PCR, Quant (Graph) HBV IU/mL HBV DNA not detected IU/mL log10 HBV IU/mL Unable to calculate result since non-numeric result obtained for component test. Test Information: The reportable range for this assay is 10 IU/mL to 1 billion IU/mL. TESTING PERFORMED AT [facility]. ORIGINAL REPORT ON FILE IN LAB CONTAINS ADDITIONAL TEST SITE INFORMATION. Performed By: #### L801.1541 #### [facility] [address] [place], [address] COMPREHENSIVE METABOLIC Collected: 04/19/2017 Status: F Source: [place] 2:41 PM [facility] REPOSITORY Order Comment: Comments: [id number] HBV QUANT TYPE CODE TESTS RESULT OUT OF RANGE REFERENCE UNITS LAB L501.0100 74-106 mg/dL Normal GLU 104 Result Comment: Fasting Glucose result from 100 to 125 mg/dL suggests IMPAIRED HOMEOSTASIS per A.D.A. criteria. Please note revised GLUCOSE reference range effective 2017. LAB L501.1000 7-18 mg/dL High BUN 23 LAB L501.1100 0.70-1.30 mg/dL Normal CREAT,SERUM 1.20 Result Comment: The validity of the calculated GFR AND GFRAA in patients over 70 years has not been determined. Clinical correlation is essential. LAB L501.1110 >60 mL/min Normal EST GFR 65 Result Comment: Non- GFR Calc LAB L501.1115 >60 mL/min Normal EST GFR - AA 78 Result Comment: GFR Calc LAB L501.1300 10-20 RATIO Normal BUN/CRE 19.2 LAB L501.1500 6.4-8.2 g/dL T Normal PROT 7.6 LAB L501.1800 3.2-5.0 g/dL Normal ALB 3.9 LAB L501.1950 2.2-4.2 g/dL Normal GLOB 3.7 LAB L501.2000 0.9-2.4 RATIO Normal A/G 1.1 LAB L501.2200 8.5-10.1 mg/dL CA Normal 8.9 LAB L501.4100 15-37 U/L Normal AST 29 LAB L501.4305 45-117 U/L Normal ALK P 65 LAB L501.4405 16-61 U/L Normal ALT 32 Result Comment: Please note revised ALT reference range effective 2017. LAB L501.4600 0.20-1.00 mg/dL Normal T BILI 0.40 LAB L501.5300 136-145 mmol/L Normal NA 140 LAB L501.5600 3.5-5.1 mmol/L Normal K 3.7 LAB L501.5900 98-107 mmol/L Normal CL 103 LAB L501.6100 21.0-32.0 mmol/L Normal CO2 29.0 LAB L501.6200 5-15 Normal GAP 8 Performed By: #### L500.4050, L501.2300, L501.5100, L501.5200 #### [facility] [address] [place], [place], [id number] PHOSPHORUS Collected: 04/19/2017 Status: F Source: [place] 2:41 PM [facility] REPOSITORY Order Comment: Comments: [id number] HBV QUANT TYPE CODE TESTS RESULT OUT OF RANGE REFERENCE UNITS LAB L501.2300 2.5-4.9 mg/dL Normal PHOS 3.6 Performed By: #### L500.4050, L501.2300, L501.5100, L501.5200 #### [facility] [address] [place], [address] GGTP Collected: 04/19/2017 Status: F Source: [place] 2:41 PM [facility] REPOSITORY Order Comment: Comments: [id number] HBV QUANT TYPE CODE TESTS RESULT OUT OF RANGE REFERENCE UNITS LAB L501.5100 15-85 U/L Normal GGTP 33 Performed By: #### L500.4050, L501.2300, L501.5100, L501.5200 #### [facility] [address] [place] [place], [address] MAGNESIUM Collected: 04/19/2017 Status: F Source: [place] 2:41 PM [facility] REPOSITORY Order Comment: Comments: [id number] HBV QUANT TYPE CODE TESTS RESULT OUT OF RANGE REFERENCE UNITS LAB L501.5200 1.6-2.6 mg/dL Normal MG 2.3 Result Comment: Please note revised Magnesium reference range effective 2017. Performed By: #### L500.4050, L501.2300, L501.5100, L501.5200 #### [facility] [address] [place] [place], [address] TACROLIMUS (PROGRAF) Collected: 04/19/2017 Status: F Source: [place] 2:41 PM [facility] REPOSITORY TYPE CODE TESTS RESULT OUT OF RANGE REFERENCE UNITS LAB L3380.1100 2.0-20.0 ng/mL Normal TACROLIMUS 2.3 Result Comment: Trough (immediately following transplant) 15.0 Trough (steady state, 2 weeks or more after transplant): 3.0 - 8.0 Detection Limit = 1.0 Performed by LC-MS/MS technology. Performed at: - [facility] [id number] Metal Miner: Guero Almonte MD, Phone: [phone] Performed By: #### L3380.1000 #### [facility] (refer to report for specific site) refer to report for address and phone number OBSOLETE Observed: 03/30/2017 Status: COMPLETED Source: [place] 12:00 AM [facility] REPOSITORY Refill (TXCTMN) RODGER CHENG ([id number]) 1950 M TRN Date Time Provider Department 03/30/17 LIVER TXP COORDINATOR TXCTMN During your visit today, we recorded the following information about you: Lucero Carter Specialty Material Handler Floorperson 03/30/2017 11:49 AM Signed tacrolimus (PROGRAF) 0.5 mg capsule ? ? Sig: Take 3 capsules by mouth twice daily. Pt left requesting that we send an Rx to his pharmacy [facility]: [phone] Lucero Carter Specialty Material Handler Floorperson Desirae Alarcon, RN, RN 03/30/2017 2:16 PM Signed Attempted to call [email or web address] and requested he clarify prescription request. Advised we sent prescription to his local [facility] pharmacy 03/07/17 and have faxed prescription to [facility]. Desirae Alarcon RN Liver Candle Cutter Desirae Alarcon RN, RN 04/02/2017 11:39 AM Signed Spoke with patient who confirmed he is NOT using [facility] order pharmacy for his Tacrolimus. He is able to get a 30 day supply from local pharmacy for $1. Patient's request for medication is as follows: Pending Prescriptions Disp Refills TACROLIMUS 0.5 MG CAPSULE 540 capsule 3 Sig: Take 3 capsules by mouth twice daily. [place]: No Please approve the above prescription(s) to electronically send to pharmacy. ROX Tolliver CNP 04/02/2017 12:03 PM Signed The following approved medication requests have been transmitted electronically. Signed Prescriptions Disp Refills tacrolimus (PROGRAF) 0.5 mg capsule 540 capsule 3 Sig: Take 3 capsules by mouth twice daily. [place]: No Authorizing Provider: GABRIELLE ROSEN (CLARISA) Gabrielle Rosen CNP Allergies As of Date: 03/30/2017 (No Known Allergies) Date Reviewed: 03/18/2014 Reviewed by: Aishwarya Benedict - Fully Assessed Reason for Visit: Refill Request [94] Visit Diagnosis:Liver replaced by transplant (HCC) [Z94.4] Order(s):tacrolimus (PROGRAF) 0.5 mg capsuleTake 3 capsules by mouth twice daily.Disp: 540 capsuleRfl: 3 Prescriptions as of 03/30/2017 Sig: TACROLIMUS 0.5 MG CAPSULE Take 3 capsules by mouth twic* SULFAMETHOXAZOLE 800 MG-TRIME* Take 1 tablet by mouth every * TENOFOVIR DISOPROXIL FUMARATE* Take 1 tablet by mouth once d* POTASSIUM CITRATE ER 5 MEQ (5* Take 1 tablet by mouth twice * COENZYME Q10 200 MG/GRAM ORAL* Take 100 mg by mouth once tabatha* CITALOPRAM 20 MG TABLET Take 1 tablet by mouth once d* AMLODIPINE 5 MG TABLET Take 1 tablet by mouth once d* VENLAFAXINE 75 MG TABLET Take one(1) tablet daily. XANAX 0.25 MG TABLET 1 tab every 24 hours as needed DAILY MULTIVITAMIN TABLET Take one(1) tablet daily. ACETAMINOPHEN 500 MG TABLET 1 Tab ORAL EVERY 6 HOURS N* BENADRYL 25 MG CAPSULE one tab oral at bedtime as ne* Problem List As Of Date 03/30/2017 Noted Resolved MALIG NEOPLASM LIVER, PRIMARY [C22.8] INVALID FOR* ASA CLASS IV [1004] INVALID FOR* Need for Prophylactic Immunotherapy [Z29.8] INVALID FOR* Liver Replaced by Transplant [Z94.4] INVALID FOR* HCC (Hepatocellular Carcinoma) [C22.0] INVALID FOR* Hepatitis B [B19.10] INVALID FOR* Incisional Hernia [K43.2] INVALID FOR* Prescriptions ordered this encounter Disp Refills Start End TACROLIMUS 0.5 MG CAPSULE 540 * 3 04/02/2017 Cmt: Diagnosis: Liver Transplant Z94.4 at [facility] 11/27/2008 Route: ORAL Sig: Take 3 capsules by mouth twice daily. Medications Discontinued During This Encounter tacrolimus (PROGRAF) 0.5 mg capsule 540 * 3 03/07/2017 04/02/2017 Class: Print RX Cmt: Diagnosis: Liver Transplant/V42.7 Route: ORAL Sig: Take 3 capsules by mouth twice daily. Disc: Reason for discontinue is not on file. Cosign required by JAIDEN RAUSCH[[id number]] Encounter Status:Closed by GABRIELLE ROSEN CNP on 04/02/17 CNCO Observed: 03/29/2017 Status: COMPLETED Source: [place] 12:00 AM [facility] REPOSITORY Clinical report posted in error Letter Text May 03, 2017 RE: Rodger Cheng [facility]: [id number] : 1950 Dear Lab Personnel: Rodger Cheng is status post liver transplant and his labs will be followed by the [facility] Liver Transplant Team. Rodger needs the following blood work drawn once a week preferably on Sunday and PR. Labs need to be drawn in the morning, as the immunosuppressive drug level must be a trough. Results need to be faxed to [facility] Liver Transplant at or [phone]. TACROLIMUS (Prograf) monitoring will be done at [facility]. The patient will bring a lab shipping box with 2 lavender top tubes and instructions for the drawing, labeling, and mailing of the specimen. Please make sure that all tubes are filled to the top. CBC WITH DIFF AND PLTS MAGNESIUM CMP PHOSPHORUS GGT TACROLIMUS (Prograf) LIPID PANEL (every 3 months) HCV-DNA QUANT by PCR (every 3 months) The ICD-10 diagnosis codes of K76.9, Z48.23, Z94.4, and Z41.8 may be used for all above tests except Magnesium (E61.2), Lipid Panel (Z48.23 and Z94.4), Phosphorous (E83.30) and Glucose (R73.02). At times, we may require Rodger to have a Prothrombin Time and a PTT in preparation for a liver biopsy. (Z01.812, and Z01.818). Thank you very much for your help. If you have any questions, please contact the Liver Transplant Coordinators at [phone] Option 3 ( ext. [phone] Option 3). Sincerely, Letter Text May 03, 2017 RE: Rodger Cheng [facility]: [id number] : 1950 Dear Lab Personnel: Rodger Cheng is status post liver transplant and his labs will be followed by the [facility] Liver Transplant Team. Rodger needs the following blood work drawn once a week preferably on Sunday and PRN. Labs need to be drawn in the morning, as the immunosuppressive drug level must be a trough. Results need to be faxed to [facility] Liver Transplant at or [phone]. TACROLIMUS (Prograf) monitoring will be done at [facility]. The patient will bring a lab shipping box with 2 lavender top tubes and instructions for the drawing, labeling, and mailing of the specimen. Please make sure that all tubes are filled to the top. CBC WITH DIFF AND PLTS MAGNESIUM CMP PHOSPHORUS GGT TACROLIMUS (Prograf) LIPID PANEL (every 3 months) HBV-DNA QUANT BY PCR (EVERY 3MONTHS) The ICD-10 diagnosis codes of K76.9, Z48.23, Z94.4, and Z41.8 may be used for all above tests except Magnesium (E61.2), Lipid Panel (Z48.23 and Z94.4), Phosphorous (E83.30) and Glucose (R73.02). At times, we may require Rodger to have a Prothrombin Time and a PTT in preparation for a liver biopsy. (Z01.812, and Z01.818). Thank you very much for your help. If you have any questions, please contact the Liver Transplant Coordinators at [phone] Option 3 ( ext. [phone] Option 3). Sincerely, CBC W/DIFF, AUTOMATED Collected: 03/09/2017 Status: F Source: [place] 2:16 PM [facility] REPOSITORY TYPE CODE TESTS RESULT OUT OF RANGE REFERENCE UNITS LAB L100.1000 4.4-11.0 K/mm3 Normal WBC 7.1 LAB L100.1200 4.6-6.2 M/mm3 Low RBC 4.59 LAB L100.1300 13.0-16.5 g/dl Normal HGB 14.1 LAB L100.1400 40-54 % Normal HCT 41.4 LAB L100.1500 80-94 fL Normal MCV 90.2 LAB L100.1600 27.0-32.0 pg Normal MCH 30.7 LAB L100.1700 32-36 g/gl Normal MCHC 34.1 LAB L100.1810 11.6-14.6 % Normal RDW CV 12.3 LAB L100.1820 35.1-43.9 fl Normal RDW SD 40.0 LAB L100.1900 150-450 K/mm3 Normal PLT 279 LAB L100.2000 6.2-12.0 fl Normal MPV 9.8 LAB L100.2100 47-70 % Normal NEUT% 58.8 LAB L100.2200 19-41 % Normal LY% 26.6 LAB L100.2300 0-10 % High MONO% 12.3 LAB L100.2400 0-5 % Normal EO% 1.7 LAB L100.2500 0-1 % Normal BASO% 0.3 LAB L100.2550 0.0-0.9 % Normal IM GRAN % 0.300 Result Comment: IG% - Immature Granulocytes (promyelocytes, myelocytes and metamyelocytes) > 1% indicates that a LEFT SHIFT is Present. LAB L100.2620 2.0-7.7 X10 3/uL Normal Absolute Neut 4.2 LAB L100.2720 0.83-4.51 X10 3/ul Normal Absolute Lymph 1.88 Performed By: #### L100.0100 #### [facility] [address] [place], [place], [address] COMPREHENSIVE METABOLIC Collected: 03/09/2017 Status: F Source: [facility] 2:16 PM [facility] REPOSITORY TYPE CODE TESTS RESULT OUT OF RANGE REFERENCE UNITS LAB L501.0100 70-110 mg/dL Normal GLU 98 LAB L501.1000 7-18 mg/dL Normal BUN 16 LAB L501.1100 0.70-1.30 mg/dL Normal 1.08 CREAT,SERUM Result Comment: The validity of the calculated GFR AND GFRAA in patients over 70 years has not been determined. Clinical correlation is essential. LAB L501.1110 >60 mL/min Normal EST GFR 73 Result Comment: Non- GFR Calc LAB L501.1115 >60 mL/min Normal EST GFR - AA 88 Result Comment: GFR Calc LAB L501.1300 10-20 RATIO Normal BUN/CRE 14.8 LAB L501.1500 6.4-8.2 g/dL T Normal PROT 8.2 LAB L501.1800 3.4-5.0 g/dL Normal ALB 4.0 Result Comment: Please note revised Albumin AND Globulin reference range effective 2016. LAB L501.1950 2.2-4.2 g/dL Normal GLOB 4.2 LAB L501.2000 0.9-2.4 RATIO Normal A/G 1.0 LAB L501.2200 8.5-10.1 mg/dL Normal CA 9.2 LAB L501.4100 15-37 U/L Normal AST 28 LAB L501.4305 45-117 U/L Normal ALK P 79 LAB L501.4405 12-78 U/L Normal ALT 26 LAB L501.4600 0.20-1.00 mg/dL Normal T BILI 0.40 LAB L501.5300 136-145 mmol/L Normal NA 139 LAB L501.5600 3.5-5.1 mmol/L Normal K 3.6 LAB L501.5900 98-107 mmol/L Normal CL 101 LAB L501.6100 21.0-32.0 mmol/L High CO2 33.0 LAB L501.6200 5-15 Normal GAP 5 Performed By: #### L500.4050, L501.5100 #### [facility] [address] [place], [place], [address] GGTP Collected: 03/09/2017 Status: F Source: [place] 2:16 PM [facility] REPOSITORY TYPE CODE TESTS RESULT OUT OF RANGE REFERENCE UNITS LAB L501.5100 15-85 U/L Normal GGTP 37 Performed By: #### L500.4050, L501.5100 #### [facility] [address] [place], [address] TACROLIMUS (PROGRAF) Collected: 03/09/2017 Status: F Source: [place] 2:16 PM [facility] REPOSITORY TYPE CODE TESTS RESULT OUT OF RANGE REFERENCE UNITS LAB L3380.1100 Normal TACROLIMUS Result Comment: None Detected Trough (immediately following transplant) 15.0 Trough (steady state, 2 weeks or more after transplant): 3.0 - 8.0 Detection Limit = 1.0 Performed by LC-MS/MS technology. Performed at: [address] [id number] Metal Miner: Guero Almonte MD, Phone: [phone] Performed By: #### L3380.1000 #### [facility] (refer to report for specific site) refer to report for address and phone number CNPN Observed: 03/02/2017 Status: COMPLETED Source: [place] 12:00 AM [facility] REPOSITORY Telephone (TXCTMN) RODGER CHENG ([id number]) 1950 M TRN Date Time Provider Department 03/02/17 LIVER TXP COORDINATOR TXCTMN During your visit today, we recorded the following information about you: Meggan Rubioowitz PSR 03/02/2017 10:58 AM Signed Juanis, 2 weeks delivery time viread and prograf [employer] Local [facility] pharm [facility] only until caught up with online delivery [phone] Kristin ANGELES, RN, RN 03/02/2017 11:15 AM Signed These prescriptions were faxed to preferred [place] pharmacy again on yesterday, and then original prescriptions MAILED to his home (overnighted). He should receive them today, and can take to his local pharmacy. Kristin Angeles, RN, BSN Liver Candle Cutter Lucero Carter Specialty Material Handler Floorperson 03/06/2017 8:30 AM Signed Pt called in this morning stating that the [facility] would not [facility] the rx that was faxed to them, pt also then informed me that he has moved and that the paper rx that was sent via [facility] was sent to an incorrect address and never received (pt did not inform us that he moved address is now up to date) he is totally out of his prograf and is unsure what to do, he mentioned possibly picking up a prescription today from our office himself please rc to patient as he is totally out of meds [phone] Desirae Alarcon, RN, RN 03/06/2017 1:27 PM Signed I spoke with patient who advised on-line [facility] does not have brand Prograf (which he has been taking) only Tacrolimus. He is requesting a new Tacrolimus prescription be faxed to on line pharmacy. He is unclear if [facility] has his tenofovir Rx previously faxed. He will call pharmacy and let me know if he needs another tenofovir Rx. Additionally, he will call Medicare to see if his plan will allow a tier exception for tacrolimus and tenofovir. Will send 30 day supply to local pharmacy. He will only p/u a 2 wk supply at local pharmacy, Patient's request for medication is as follows: Until mail order supply arrives. Pending Prescriptions Disp Refills TENOFOVIR DISOPROXIL FUMARATE 300 MG TABLET 30 tablet 0 Sig: Take 1 tablet by mouth once daily. [place]: No TACROLIMUS 0.5 MG CAPSULE 180 capsule 0 Sig: Take 3 capsules by mouth twice daily. [place]: No Please approve the above prescription(s) to electronically send to pharmacy. ROX Tolliver Specialty Material Handler Floorperson 03/06/2017 2:01 PM Signed Pt called back and left to inform us that he contacted the online pharmacy and they do not have the Rx for the pt Vyread prescription, please fax rx to the pharmacy, he also then called and spoke with me to remind us to send his short term rx to the local pharmacy, informed pt that they were pending and we were waiting to get the meds signed off. Lucero Carter Specialty Material Handler Floorperson Gabrielle Rosen CNP 03/07/2017 8:14 AM Signed The following approved medication requests have been transmitted electronically. Signed Prescriptions Disp Refills tenofovir disoproxil fumerate (VIREAD) 300 mg tablet 30 tablet 0 Sig: Take 1 tablet by mouth once daily. [place]: No Authorizing Provider: GABRIELLE ROSEN (CLARISA) tacrolimus (PROGRAF) 0.5 mg capsule 180 capsule 0 Sig: Take 3 capsules by mouth twice daily. [place]: No Authorizing Provider: GABRIELLE ROSEN (CLARISA) CLARISA Roy RN, RN 03/07/2017 2:18 PM Signed 90 day prescriptions printed, to be signed by and will be faxed today per request. Desirae Alarcon RN Liver Candle Cutter Desirae Alarcon RN, RN 03/07/2017 2:18 PM Signed Addended by: DESIRAE ALARCON on: 03/07/2017 02:18 PM Modules accepted: Orders Desirae Alarcon RN, RN 03/07/2017 3:26 PM Signed Refill provided to department mgr to fax to [facility] and mail original Rx to patient's updated address. Desirae Alarcon RN Liver Candle Cutter Allergies As of Date: 03/02/2017 (No Known Allergies) Date Reviewed: 03/18/2014 Reviewed by: Aishwarya Minor Coord - Fully Assessed Reason for Visit: Medication Request [138] Cmt: viread (new) and Prograf (refill) Visit Diagnosis:Liver replaced by transplant (HCC) [Z94.4] Order(s):tenofovir disoproxil fumerate (VIREAD) 300 mg tabletTake 1 tablet by mouth once daily.Disp: 90 tabletRfl: 3 tacrolimus (PROGRAF) 0.5 mg capsuleTake 3 capsules by mouth twice daily.Disp: 540 capsuleRfl: 3 Prescriptions as of 03/02/2017 Sig: TENOFOVIR DISOPROXIL FUMARATE* Take 1 tablet by mouth once d* TACROLIMUS 0.5 MG CAPSULE Take 3 capsules by mouth twic* SULFAMETHOXAZOLE 800 MG-TRIME* Take 1 tablet by mouth every * POTASSIUM CITRATE ER 5 MEQ (5* Take 1 tablet by mouth twice * COENZYME Q10 200 MG/GRAM ORAL* Take 100 mg by mouth once tabatha* CITALOPRAM 20 MG TABLET Take 1 tablet by mouth once d* AMLODIPINE 5 MG TABLET Take 1 tablet by mouth once d* VENLAFAXINE 75 MG TABLET Take one(1) tablet daily. XANAX 0.25 MG TABLET 1 tab every 24 hours as needed DAILY MULTIVITAMIN TABLET Take one(1) tablet daily. 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 TACROLIMUS 0.5 MG CAPSULE 180 * 0 03/07/2017 03/07/2017 Cmt: Diagnosis: Liver Transplant/V42.7 Route: ORAL Sig: Take 3 capsules by mouth twice daily. TENOFOVIR DISOPROXIL FUMARATE 300 MG* 90 t* 3 03/07/2017 Class: Print RX Route: ORAL Sig: Take 1 tablet by mouth once daily. Cosign required by JAIDEN RAUSCH[[id number]] TACROLIMUS 0.5 MG CAPSULE 540 * 3 03/07/2017 Class: Print RX Cmt: Diagnosis: Liver Transplant/V42.7 Route: ORAL Sig: Take 3 capsules by mouth twice daily. Cosign required by JAIDEN RAUSCH[[id number]] Medications Discontinued During This Encounter tenofovir disoproxil fumerate (VIREA* 90 t* 3 02/23/2017 03/07/2017 Class: Print RX Route: ORAL Sig: Take 1 tablet by mouth once daily. Disc: Reason for discontinue is not on file. PROGRAF 0.5 mg capsule 540 * 3 02/23/2017 03/07/2017 Class: Print RX Cmt: Diagnosis: Liver Transplant/V42.7 Route: ORAL Sig: Take 3 capsules by mouth twice daily. Disc: Reason for discontinue is not on file. tenofovir disoproxil fumerate (VIREA* 30 t* 0 03/07/2017 03/07/2017 Route: ORAL Sig: Take 1 tablet by mouth once daily. Disc: Reason for discontinue is not on file. tacrolimus (PROGRAF) 0.5 mg capsule 180 * 0 03/07/2017 03/07/2017 Cmt: Diagnosis: Liver Transplant/V42.7 Route: ORAL Sig: Take 3 capsules by mouth twice daily. Disc: Reason for discontinue is not on file. Encounter Status:Closed by GABRIELLE ROSEN CNP on 03/07/17 CLARISAN Observed: 02/23/2017 Status: COMPLETED Source: [facility] 12:00 AM [facility] Telephone (TXCTMN) RODGER CHENG ([id number]) 1950 M TRN Date Time Provider Department 02/23/17 LIVER TXP COORDINATOR TXCTMN During your visit today, we recorded the following information about you: Lucero Carter Specialty Material Handler Floorperson 02/23/2017 11:38 AM Signed pt left message on machine wanting to speak with coordinator about medication question he has, he did not leave any details . pt would like a return call. Desirae Alarcon RN, RN 02/23/2017 4:30 PM Signed Returned call to patient who did not receive written prescriptions as requested. Upon review of [facility] these prescription were not printed. Per pt request will have them faxed to [facility] fax # [phone] Desirae Alarcon RN Liver Candle Cutter Gabrielle Rosen CNP 02/23/2017 4:31 PM Signed Reviewed and approved. CLARISA Roy Specialty Material Handler Floorperson 02/23/2017 4:55 PM Signed prescriptions Were faxed to number below on 02/23/17 confirmation fax was received at 4:55pm Lucero Carter Specialty Material Handler FloorpersonAssistant Lucero Carter Specialty Material Handler Floorperson 02/28/2017 2:08 PM Signed Pt called and stated that he provided the incorrect fax for his prescription, he update the fax and the rx was faxed over New prescriptions for patient was faxed to [facility] on 02/28/17 confirmation fax was received at 2:07pm Allergies As of Date: 02/23/2017 (No Known Allergies) Date Reviewed: 03/18/2014 Reviewed by: Aishwarya Benedict - Fully Assessed Reason for Visit: Medication Question [1478] Visit Diagnosis:Liver replaced by transplant (HCC) [Z94.4] Order(s):tenofovir disoproxil fumerate (VIREAD) 300 mg tabletTake 1 tablet by mouth once daily.Disp: 90 tabletRfl: 3 PROGRAF 0.5 mg capsuleTake 3 capsules by mouth twice daily.Disp: 540 capsuleRfl: 3 Prescriptions as of 02/23/2017 Sig: TENOFOVIR DISOPROXIL FUMARATE* Take 1 tablet by mouth once d* PROGRAF 0.5 MG CAPSULE Take 3 capsules by mouth twic* SULFAMETHOXAZOLE 800 MG-TRIME* Take 1 tablet by mouth every * POTASSIUM CITRATE ER 5 MEQ (5* Take 1 tablet by mouth twice * COENZYME Q10 200 MG/GRAM ORAL* Take 100 mg by mouth once tabatha* CITALOPRAM 20 MG TABLET Take 1 tablet by mouth once d* AMLODIPINE 5 MG TABLET Take 1 tablet by mouth once d* VENLAFAXINE 75 MG TABLET Take one(1) tablet daily. XANAX 0.25 MG TABLET 1 tab every 24 hours as needed DAILY MULTIVITAMIN TABLET Take one(1) tablet daily. ACETAMINOPHEN 500 MG TABLET 1 Tab ORAL EVERY 6 HOURS N* BENADRYL 25 MG CAPSULE one tab oral at bedtime as ne* Problem List As Of Date 02/23/2017 Noted Resolved MALIG NEOPLASM LIVER, PRIMARY [C22.8] INVALID FOR* ASA CLASS IV [1004] INVALID FOR* Need for Prophylactic Immunotherapy [Z29.8] INVALID FOR* Liver Replaced by Transplant [Z94.4] INVALID FOR* HCC (Hepatocellular Carcinoma) [C22.0] INVALID FOR* Hepatitis B [B19.10] INVALID FOR* Incisional Hernia [K43.2] INVALID FOR* Prescriptions ordered this encounter Disp Refills Start End TENOFOVIR DISOPROXIL FUMARATE 300 MG* 90 t* 3 02/23/2017 Class: Print RX Route: ORAL Sig: Take 1 tablet by mouth once daily. PROGRAF 0.5 MG CAPSULE 540 * 3 02/23/2017 Class: Print RX Cmt: Diagnosis: Liver Transplant/V42.7 Route: ORAL Sig: Take 3 capsules by mouth twice daily. Medications Discontinued During This Encounter tenofovir disoproxil fumerate (VIREA* 90 t* 3 02/09/2016 02/23/2017 Route: ORAL Sig: Take 1 tablet by mouth once daily. Disc: Reason for discontinue is not on file. PROGRAF 0.5 mg capsule 540 * 3 02/29/2016 02/23/2017 Cmt: Diagnosis: Liver Transplant/V42.7 Route: ORAL Sig: Take 3 capsules by mouth twice daily. Disc: Reason for discontinue is not on file. Encounter Status:Closed by GABRIELLE ROSEN CNP on 02/23/17 ALLERGIES ALLERGIES DATE TYPE / CODE NAME / CODE REACTION SEVERITY SOURCE 01/03/2016 Drug No Known Unknown [facility] Allergy/4160 Allergies/F00 Hospital 15391(SNOMED [id number](RXNOR Repository CT) M) ENCOUNTERS ENCOUNTERS ADMIT/DISCHARGE ACCOUNT ADMITTING ENCOUNTER LOCATION SOURCE NUMBER CLASS 02/14/2018 [id number] Ambulatory [facility] 1 [facility] ing:LAB Repository 01/28/2018/ [id number] Ambulatory [facility] 8 6 [facility] ing:LAB Repository 11/12/2017/ [id number] Ambulatory [facility] Happy 8 7 [facility] ing:LAB Repository 07/08/2017/ [id number] Emergency [facility] 8 0 [facility] ing:ED Repository 07/06/2017/ [id number] Ambulatory Happy Happy 8 5 [facility] ing:LAB Repository 06/13/2017/ [id number] Ambulatory Faraz [facility] 8 4 [facility] ing:LAB Repository 04/19/2017/ [id number] Ambulatory Happy Happy 8 6 [facility] ing:LAB Repository 03/09/2017/ [id number] Ambulatory [facility] Happy 8 1 [facility] ing:LAB Repository PAYERS PAYERS ENCOUNTER GUARANTOR PAYER SUBSCRIBER SOURCE 02/14/2018 RODGER Pleitez Primary Insurance:AETLIBERTY Pleitez Happy [id number] MCRPolicy Number: BERGB: [facility] MEBNJYHWEffective [id number] Date:5088-76-26UL BOX Repository 31748Ezb: [phone] LAURA VELEZ [phone] ([place]) [phone]: 02/14/2018 Secondary NOT GIVENUNK Happy Insurance:SELF PAY Community INSURANCEPolicy Number: Hospital Effective Repository Date:2018-02-04 01/28/2018 RODGER Pleitez Primary Insurance:AETNA RODGER Pleitez Faraz [id number] MCRPolicy Number: BERGDOB: [facility] MEBNJYHWEffective [id number] Date:4486-01-68UF BOX Repository 12851Esb: [phone] [place], [place] [phone] () [address]GW: 01/28/2018 Secondary NOT GIVENUNK [place] Insurance:SELF PAY Community INSURANCEPolicy Number: Hospital Effective Repository Date:2017-12-05 11/12/2017 RODGER W Primary Insurance:AETNA RODGER W Faraz [id number] MCRPolicy Number: BERGDOB: [facility] MEBNJYHWEffective [id number] Date:1870-31-26QH BOX Repository [address]99[address]Ino: [phone] [place], [place] [phone] () [address]FU: 11/12/2017 Secondary NOT GIVENUNK Happy Insurance:SELF PAY Community INSURANCEPolicy Number: Hospital Effective Repository Date:2017-08-02 07/08/2017 RODGER W Primary RODGER W [place]az [id number] Insurance:MEDICARE PART PROSPERDOB: Community ANABAPTIST A BPolicy Number: [id number], [place] [id number] Repository [address]Vyi: [phone] Date:2017-07-08 [phone] () 07/08/2017 Secondary RODGER W [place] Insurance:AETNA LICHAB: Community MCRPolicy Number: [id number] Hospital MEBNJYHWEffective Repository Date:6378-19-85JF [id number] [address]YC: 07/08/2017 Tertiary Insurance:SELF NOT GIVENUNK [facility] PAY INSURANCEPolicy Community Number: Effective Hospital Date:2017-07-08 Repository 07/06/2017 RODGER W Primary Insurance:AETNA RODGER W Faraz [id number] MCRPolicy Number: PROSPERDOB: [facility] MEBNJYHWEffective [id number], [place] Date:1000-68-44UO BOX Repository 847[address]Ctx: [phone] ROSIE LAURA [phone] () [address]WE: 07/06/2017 Secondary NOT GIVENUNK [place] Insurance:SELF PAY Community INSURANCEPolicy Number: Hospital Effective Repository Date:2017-07-03 06/13/2017 RODGER Pleitez Primary RODGER Ruth [id number] Insurance:MEDICARE PART BERGDOB: Community ANABAPTIST A BPolicy Number: [id number] [place], [place] [id number] Repository 107[address]Tfp: ([phone]) Date:2017-04-063729 () 06/13/2017 Secondary NOT GIVENUNK [place] Insurance:SELF PAY Community INSURANCEPolicy Number: Hospital Effective Repository Date:2017-06-04 04/19/2017 RODGER Pleitez Primary RODGER Ruth [id number] Insurance:MEDICARE PART BERGDOB: Community ANABAPTIST A BPolicy Number: [id number], [place] [id number] Repository 48883Fle: [phone]) Date:2017-04-06 [phone] () 04/19/2017 Secondary NOT GIVENUNK [place] Insurance:SELF PAY Community INSURANCEPolicy Number: Hospital Effective Repository Date:2017-04-06 03/09/2017 RODGER W Primary RODGER Ruth [id number] Insurance:MEDICARE PART BERGDOB: Community ANABAPTIST A BPolicy Number: [id number] [place], [place] [id number] Repository [address]Eub: [phone]) Date:2017-01-030892 () 03/09/2017 Secondary NOT GIVENUNK Happy Insurance:SELF PAY Community INSURANCEPolicy Number: Hospital Effective Repository Date:2017-03-05
== END 2018-02-01 09:27 | disposition home or self-care (01) ==
LOC: LAB 16:29
PROVIDERS: Family Provider Family Medicine; PCP Family Medicine
DX: K76.9 Liver disease, unspecified (principal); Z48.23 Encounter for aftercare following liver transplant; Z94.4 Liver transplant status; Z41.8 Encounter for other procedures for purposes other than remedying health state; E61.2 Magnesium deficiency; R73.02 Impaired glucose tolerance (oral)
CPT/HCPCS: 36415; 80053; 80061; 80197; 82977; 83735; 84100; 85025; 85610; 85730

== ENCOUNTER 2018-04-29 16:44 | Outpatient (RCR) | payer MEDICARE, SELFPAY ==
[2018-04-29 17:15] LABS: Absolute Lymphocyte Count 1.58 X10^3/ul (0.83-4.51); Absolute Neutrophil Count 3.9 X10^3/uL (2.0-7.7); Basophil# 0.01 X10^3/uL; Basophil% 0.2 % (0-1); Eosinophil# 0.08 X10^3/uL; Eosinophils% 1.3 % (0-5); Hematocrit 41.9 % (40-54); Hemoglobin 14.1 g/dl (13.0-16.5); Lymphocyte # 1.58 X10^3/ul (4.0); Lymphocyte % 25.7 % (19-41); Mean Corp Hgb Conc 33.7 g/gl (32-36); Mean Corpuscular Hgb 30.8 pg (27.0-32.0); Mean Corpuscular Volume 91.5 fL (80-94); Mean Platelet Vol. 10.3 fl (6.2-12.0); Monocyte# 0.55 X10^3/uL; Monocyte% 8.9 % (0-10); Neutrophil # 3.92 X10^3/uL (2.7-7.7); Neutrophil % 63.7 % (47-70); Platelet Count 227 K/mm3 (150-450); RBC Distribution Width CV 12.7 % (11.6-14.6); RBC Distribution Width SD 42.5 fl (35.1-43.9); Red Blood Count 4.58 M/mm3 (4.6-6.2); White Blood Count 6.2 K/mm3 (4.4-11.0)
[2018-04-29 17:22] LABS: POSITIVE COUNT NO; POSITIVE DIFFERENTIAL NO; POSITIVE MORPHOLOGY NO
[2018-04-29 17:31] LABS: ALB/GLOB Ratio 1.2 RATIO (0.9-2.4); AST(SGOT) 32 U/L (15-37); Alanine Aminotransfer ALT/SGPT 29 U/L (16-61); Albumin, Serum 4.1 g/dL (3.2-5.0); Alkaline Phosphatase 67 U/L (45-117); Anion Gap 6 (5-15); BUN 19 mg/dL (7-18); Chloride 103 mmol/L (98-107); Creatinine, Serum 1.36 mg/dL (0.70-1.30); EST Glomerular Filtration Rate 56 mL/min (>60); Est Glom Filt Rate - Afr Amer 67 mL/min (>60); GGTP 30 U/L (15-85); Globulin 3.5 g/dL (2.2-4.2); Glucose 97 mg/dL (74-106); Phosphorus 3.5 mg/dL (2.5-4.9); Potassium 3.7 mmol/L (3.5-5.1); Protein, Total 7.6 g/dL (6.4-8.2); Sodium Level 138 mmol/L (136-145)
[2018-05-03 20:07] LABS: HCV Quant. RNA PCR HCV Not Detected IU/mL (.)
[2018-05-05 10:16] LABS: Tacrolimus (FK506) 3.1 ng/mL (2.0-20.0)
== END 2018-05-02 13:26 | disposition home or self-care (01) ==
LOC: LAB 16:44
PROVIDERS: Family Provider Family Medicine; PCP Family Medicine
DX: K76.9 Liver disease, unspecified (principal); Z48.23 Encounter for aftercare following liver transplant; Z94.4 Liver transplant status; Z41.8 Encounter for other procedures for purposes other than remedying health state; E61.2 Magnesium deficiency; R73.02 Impaired glucose tolerance (oral)
CPT/HCPCS: 36415; 80053; 80197; 82977; 83735; 84100; 85025; 87522

== ENCOUNTER 2018-07-16 15:25 | Outpatient (RCR) | payer MEDICARE, OTHER, SELFPAY ==
[2018-07-16 17:03] LABS: Absolute Lymphocyte Count 1.56 X10^3/ul (0.83-4.51); Basophil# 0.03 X10^3/uL; Basophil% 0.6 % (0-1); Eosinophil# 0.06 X10^3/uL; Eosinophils% 1.2 % (0-5); Hematocrit 40.9 % (40-54); Lymphocyte # 1.56 X10^3/ul (4.0); Lymphocyte % 30.1 % (19-41); Mean Corp Hgb Conc 34.2 g/gl (32-36); Mean Corpuscular Hgb 30.7 pg (27.0-32.0); Mean Corpuscular Volume 89.7 fL (80-94); Mean Platelet Vol. 11.3 fl (6.2-12.0); Monocyte# 0.56 X10^3/uL; Monocyte% 10.8 % (0-10); Neutrophil # 2.97 X10^3/uL (2.7-7.7); Neutrophil % 57.3 % (47-70); Platelet Count 220 K/mm3 (150-450); RBC Distribution Width CV 12.3 % (11.6-14.6); RBC Distribution Width SD 39.8 fl (35.1-43.9); Red Blood Count 4.56 M/mm3 (4.6-6.2); White Blood Count 5.2 K/mm3 (4.4-11.0)
[2018-07-16 17:12] LABS: POSITIVE COUNT NO; POSITIVE DIFFERENTIAL NO; POSITIVE MORPHOLOGY NO
[2018-07-16 17:44] LABS: ALB/GLOB Ratio 1.2 RATIO (0.9-2.4); AST(SGOT) 27 U/L (15-37); Alanine Aminotransfer ALT/SGPT 30 U/L (16-61); Albumin, Serum 4.2 g/dL (3.2-5.0); Alkaline Phosphatase 65 U/L (45-117); Anion Gap 6 (5-15); BUN 21 mg/dL (7-18); BUN/Creat Ratio 15.7 RATIO (10-20); Chloride 100 mmol/L (98-107); Cholesterol 146 mg/dL (200); Creatinine, Serum 1.34 mg/dL (0.70-1.30); EST Glomerular Filtration Rate 57 mL/min (>60); Est Glom Filt Rate - Afr Amer 69 mL/min (>60); GGTP 36 U/L (15-85); Globulin 3.4 g/dL (2.2-4.2); Glucose 83 mg/dL (74-106); High Density Lipoprotein 55 mg/dL; Magnesium 2.1 mg/dL (1.6-2.6); Phosphorus 3.7 mg/dL (2.5-4.9); Potassium 3.8 mmol/L (3.5-5.1); Protein, Total 7.6 g/dL (6.4-8.2); Sodium Level 138 mmol/L (136-145); Triglycerides 97 mg/dL; Very Low Density Lipoprotein 19 mg/dL (5-40)
[2018-07-20 12:06] LABS: HCV Quant. RNA PCR HCV Not Detected IU/mL (.)
[2018-07-20 15:03] LABS: Tacrolimus (FK506) 1.8 ng/mL (2.0-20.0)
== END 2018-07-16 16:25 | disposition home or self-care (01) ==
LOC: LAB 15:25
PROVIDERS: Family Provider Family Medicine; PCP Family Medicine
DX: K76.9 Liver disease, unspecified (principal); Z48.23 Encounter for aftercare following liver transplant; Z94.4 Liver transplant status; Z41.8 Encounter for other procedures for purposes other than remedying health state; E61.2 Magnesium deficiency; R73.02 Impaired glucose tolerance (oral)
CPT/HCPCS: 36415; 80053; 80061; 80197; 82977; 83735; 84100; 85025; 87522

== ENCOUNTER 2018-10-07 16:52 | Outpatient (RCR) | payer MEDICARE, OTHER, SELFPAY ==
[2018-10-07 17:40] LABS: Absolute Lymphocyte Count 1.86 X10^3/uL (0.83-4.51); Absolute Neutrophil Count 3.4 X10^3/uL (2.0-7.7); Basophil# 0.04 X10^3/uL; Basophil% 0.7 % (0-1); Eosinophils% 1.7 % (0-5); Hematocrit 40.9 % (40-54); Hemoglobin 14.1 g/dL (13.0-16.5); Lymphocyte # 1.86 X10^3/ul (4.0); Lymphocyte % 31.1 % (19-41); Mean Corp Hgb Conc 34.5 g/dL (32-36); Mean Corpuscular Volume 92.7 fL (80-94); Mean Platelet Vol. 10.1 fl (6.2-12.0); Monocyte# 0.53 X10^3/uL; Monocyte% 8.9 % (0-10); NRBC Flagged by Analyzer 0 % (0-5); Neutrophil # 3.44 X10^3/uL (2.7-7.7); Neutrophil % 57.4 % (47-70); Platelet Count 216 K/mm3 (150-450); RBC Distribution Width CV 11.9 % (11.6-14.6); RBC Distribution Width SD 40.2 fl (35.1-43.9); Red Blood Count 4.41 M/mm3 (4.6-6.2)
[2018-10-07 18:08] LABS: ALB/GLOB Ratio 1.2 RATIO (0.9-2.4); AST(SGOT) 34 U/L (15-37); Alanine Aminotransfer ALT/SGPT 32 U/L (16-61); Alkaline Phosphatase 67 U/L (45-117); Anion Gap 8 (5-15); BUN 24 mg/dL (7-18); Calcium,Total 9.4 mg/dL (8.5-10.1); Chloride 102 mmol/L (98-107); Creatinine, Serum 1.72 mg/dL (0.70-1.30); EST Glomerular Filtration Rate 42 mL/min (>60); Est Glom Filt Rate - Afr Amer 51 mL/min (>60); GGTP 26 U/L (15-85); Globulin 3.2 g/dL (2.2-4.2); Glucose 85 mg/dL (74-106); Magnesium 2.4 mg/dL (1.6-2.6); Phosphorus 4.4 mg/dL (2.5-4.9); Potassium 4.3 mmol/L (3.5-5.1); Protein, Total 7.2 g/dL (6.4-8.2); Sodium Level 142 mmol/L (136-145)
[2018-10-11 20:07] LABS: HCV Quant. RNA PCR HCV Not Detected IU/mL (.)
[2018-10-12 10:03] LABS: Tacrolimus (FK506) 3.8 ng/mL (2.0-20.0)
== END 2018-10-07 17:00 | disposition home or self-care (01) ==
LOC: LAB 16:52
PROVIDERS: Family Provider Family Medicine; PCP Family Medicine
DX: K76.9 Liver disease, unspecified (principal); Z48.23 Encounter for aftercare following liver transplant; Z94.4 Liver transplant status; Z41.8 Encounter for other procedures for purposes other than remedying health state; E61.2 Magnesium deficiency; R73.02 Impaired glucose tolerance (oral)
CPT/HCPCS: 36415; 80053; 80197; 82977; 83735; 84100; 85025; 87522

== ENCOUNTER 2018-11-25 16:14 | Outpatient (RCR) | payer MEDICARE, OTHER, SELFPAY ==
[2018-11-25 16:38] LABS: Absolute Lymphocyte Count 1.94 X10^3/uL (0.83-4.51); Absolute Neutrophil Count 3.6 X10^3/uL (2.0-7.7); Basophil# 0.06 X10^3/uL; Basophil% 0.9 % (0-1); Eosinophil# 0.12 X10^3/uL; Eosinophils% 1.9 % (0-5); Hematocrit 41.5 % (40-54); Hemoglobin 14.4 g/dL (13.0-16.5); Lymphocyte # 1.94 X10^3/ul (4.0); Lymphocyte % 30.5 % (19-41); Mean Corp Hgb Conc 34.7 g/dL (32-36); Mean Corpuscular Hgb 31.6 pg (27.0-32.0); Mean Corpuscular Volume 91.2 fL (80-94); Mean Platelet Vol. 10.1 fl (6.2-12.0); Monocyte# 0.61 X10^3/uL; Monocyte% 9.6 % (0-10); NRBC Flagged by Analyzer 0 % (0-5); Neutrophil # 3.61 X10^3/uL (2.7-7.7); Neutrophil % 56.8 % (47-70); Platelet Count 210 K/mm3 (150-450); RBC Distribution Width CV 11.9 % (11.6-14.6); RBC Distribution Width SD 39.8 fl (35.1-43.9); Red Blood Count 4.55 M/mm3 (4.6-6.2); White Blood Count 6.4 K/mm3 (4.4-11.0)
[2018-11-25 17:19] LABS: ALB/GLOB Ratio 1.2 RATIO (0.9-2.4); AST(SGOT) 35 U/L (15-37); Alanine Aminotransfer ALT/SGPT 32 U/L (16-61); Albumin, Serum 4.1 g/dL (3.2-5.0); Alkaline Phosphatase 71 U/L (45-117); Anion Gap 8 (5-15); BUN 20 mg/dL (7-18); BUN/Creat Ratio 15.6 RATIO (10-20); Calcium,Total 8.9 mg/dL (8.5-10.1); Chloride 102 mmol/L (98-107); Cholesterol 158 mg/dL (200); Creatinine, Serum 1.28 mg/dL (0.70-1.30); EST Glomerular Filtration Rate 60 mL/min (>60); Est Glom Filt Rate - Afr Amer 72 mL/min (>60); GGTP 27 U/L (15-85); Globulin 3.4 g/dL (2.2-4.2); Glucose 88 mg/dL (74-106); High Density Lipoprotein 56 mg/dL; Magnesium 2.1 mg/dL (1.6-2.6); Phosphorus 3.6 mg/dL (2.5-4.9); Potassium 3.8 mmol/L (3.5-5.1); Protein, Total 7.5 g/dL (6.4-8.2); Sodium Level 139 mmol/L (136-145); Triglycerides 78 mg/dL; Very Low Density Lipoprotein 16 mg/dL (5-40)
[2018-11-28 03:06] LABS: HCV Quant. RNA PCR HCV Not Detected IU/mL (.)
[2018-11-28 15:14] LABS: Tacrolimus (FK506) 2.6 ng/mL (2.0-20.0)
== END 2018-11-25 17:00 | disposition home or self-care (01) ==
LOC: LAB 16:14
PROVIDERS: Family Provider Family Medicine; PCP Family Medicine
DX: K76.9 Liver disease, unspecified (principal); Z48.23 Encounter for aftercare following liver transplant; Z94.4 Liver transplant status; Z41.8 Encounter for other procedures for purposes other than remedying health state; E61.2 Magnesium deficiency; R73.02 Impaired glucose tolerance (oral)
CPT/HCPCS: 36415; 80053; 80061; 80197; 82977; 83735; 84100; 85025; 87522

== ENCOUNTER 2019-03-04 13:24 | Outpatient (RCR) | payer MEDICARE, OTHER, SELFPAY ==
[2019-03-04 14:07] LABS: Absolute Lymphocyte Count 1.96 X10^3/uL (0.83-4.51); Absolute Neutrophil Count 2.9 X10^3/uL (2.0-7.7); Basophil# 0.05 X10^3/uL; Basophil% 0.9 % (0-1); Eosinophil# 0.09 X10^3/uL; Eosinophils% 1.6 % (0-5); Hematocrit 42.5 % (40-54); Hemoglobin 14.6 g/dL (13.0-16.5); Lymphocyte # 1.96 X10^3/ul (4.0); Lymphocyte % 35.6 % (19-41); Mean Corp Hgb Conc 34.4 g/dL (32-36); Mean Corpuscular Hgb 30.7 pg (27.0-32.0); Mean Corpuscular Volume 89.5 fL (80-94); Mean Platelet Vol. 10.3 fl (6.2-12.0); Monocyte# 0.52 X10^3/uL; Monocyte% 9.4 % (0-10); NRBC Flagged by Analyzer 0 % (0-5); Neutrophil # 2.87 X10^3/uL (2.7-7.7); Neutrophil % 52.1 % (47-70); Platelet Count 216 K/mm3 (150-450); RBC Distribution Width CV 11.9 % (11.6-14.6); Red Blood Count 4.75 M/mm3 (4.6-6.2); White Blood Count 5.5 K/mm3 (4.4-11.0)
[2019-03-04 14:40] LABS: ALB/GLOB Ratio 1.2 RATIO (0.9-2.4); AST(SGOT) 33 U/L (15-37); Alanine Aminotransfer ALT/SGPT 33 U/L (16-61); Albumin, Serum 4.2 g/dL (3.2-5.0); Alkaline Phosphatase 72 U/L (45-117); Anion Gap 4 (5-15); BUN 15 mg/dL (7-18); BUN/Creat Ratio 12.4 RATIO (10-20); Calcium,Total 9.1 mg/dL (8.5-10.1); Chloride 104 mmol/L (98-107); Cholesterol 171 mg/dL (200); Creatinine, Serum 1.21 mg/dL (0.70-1.30); EST Glomerular Filtration Rate 64 mL/min (>60); Est Glom Filt Rate - Afr Amer 77 mL/min (>60); GGTP 34 U/L (15-85); Globulin 3.6 g/dL (2.2-4.2); Glucose 89 mg/dL (74-106); High Density Lipoprotein 52 mg/dL; Magnesium 2.2 mg/dL (1.6-2.6); Phosphorus 3.2 mg/dL (2.5-4.9); Potassium 3.6 mmol/L (3.5-5.1); Protein, Total 7.8 g/dL (6.4-8.2); Sodium Level 139 mmol/L (136-145); Triglycerides 102 mg/dL; Very Low Density Lipoprotein 20 mg/dL (5-40)
[2019-03-08 12:07] LABS: HCV Quant. RNA PCR HCV Not Detected IU/mL (.)
[2019-03-08 12:59] LABS: Tacrolimus (FK506) 3.3 ng/mL (2.0-20.0)
== END 2019-03-04 18:00 | disposition home or self-care (01) ==
LOC: LAB 13:24
PROVIDERS: Family Provider Family Medicine; PCP Family Medicine
DX: K76.9 Liver disease, unspecified (principal); Z48.23 Encounter for aftercare following liver transplant; Z94.4 Liver transplant status; Z41.8 Encounter for other procedures for purposes other than remedying health state; E61.2 Magnesium deficiency; R73.02 Impaired glucose tolerance (oral)
CPT/HCPCS: 36415; 80053; 80061; 80197; 82977; 83735; 84100; 85025; 87522

== ENCOUNTER 2019-05-05 08:32 | Outpatient (RCR) | payer MEDICARE, OTHER, SELFPAY ==
[2019-05-05 09:29] LABS: Absolute Lymphocyte Count 1.91 X10^3/uL (0.83-4.51); Absolute Neutrophil Count 2.7 X10^3/uL (2.0-7.7); Basophil# 0.06 X10^3/uL; Basophil% 1.1 % (0-1); Eosinophil# 0.17 X10^3/uL; Eosinophils% 3.2 % (0-5); Hematocrit 41.9 % (40-54); Hemoglobin 14.1 g/dL (13.0-16.5); Lymphocyte # 1.91 X10^3/ul (4.0); Lymphocyte % 35.8 % (19-41); Mean Corp Hgb Conc 33.7 g/dL (32-36); Mean Corpuscular Hgb 30.8 pg (27.0-32.0); Mean Corpuscular Volume 91.5 fL (80-94); Mean Platelet Vol. 9.9 fl (6.2-12.0); Monocyte# 0.45 X10^3/uL; Monocyte% 8.4 % (0-10); NRBC Flagged by Analyzer 0 % (0-5); Neutrophil # 2.74 X10^3/uL (2.7-7.7); Neutrophil % 51.3 % (47-70); Platelet Count 239 K/mm3 (150-450); RBC Distribution Width CV 11.9 % (11.6-14.6); Red Blood Count 4.58 M/mm3 (4.6-6.2); White Blood Count 5.3 K/mm3 (4.4-11.0)
[2019-05-05 10:04] LABS: ALB/GLOB Ratio 1.1 RATIO (0.9-2.4); AST(SGOT) 28 U/L (15-37); Alanine Aminotransfer ALT/SGPT 25 U/L (16-61); Albumin, Serum 3.9 g/dL (3.2-5.0); Alkaline Phosphatase 68 U/L (45-117); Anion Gap 6 (5-15); BUN 19 mg/dL (7-18); BUN/Creat Ratio 16.8 RATIO (10-20); Calcium,Total 9.1 mg/dL (8.5-10.1); Chloride 101 mmol/L (98-107); Creatinine, Serum 1.13 mg/dL (0.70-1.30); EST Glomerular Filtration Rate 69 mL/min (>60); Est Glom Filt Rate - Afr Amer 83 mL/min (>60); GGTP 28 U/L (15-85); Globulin 3.7 g/dL (2.2-4.2); Glucose 95 mg/dL (74-106); Magnesium 2.2 mg/dL (1.6-2.6); Phosphorus 2.8 mg/dL (2.5-4.9); Potassium 4.1 mmol/L (3.5-5.1); Protein, Total 7.6 g/dL (6.4-8.2); Sodium Level 138 mmol/L (136-145)
[2019-05-07 03:07] LABS: HCV Quant. RNA PCR HCV Not Detected IU/mL (.)
[2019-05-07 11:37] LABS: Tacrolimus (FK506) 3.5 ng/mL (2.0-20.0)
== END 2019-05-05 18:00 | disposition home or self-care (01) ==
LOC: LAB 08:32
PROVIDERS: Family Provider Family Medicine; PCP Family Medicine
DX: K76.9 Liver disease, unspecified (principal); Z48.23 Encounter for aftercare following liver transplant; Z94.4 Liver transplant status; Z41.8 Encounter for other procedures for purposes other than remedying health state; E61.2 Magnesium deficiency; R73.02 Impaired glucose tolerance (oral)
CPT/HCPCS: 36415; 80053; 80197; 82977; 83735; 84100; 85025; 87522

== ENCOUNTER 2019-07-17 08:08 | Outpatient (RCR) | payer MEDICARE, OTHER, SELFPAY ==
[2019-07-17 08:37] LABS: Absolute Lymphocyte Count 1.86 X10^3/uL (0.83-4.51); Absolute Neutrophil Count 3.1 X10^3/uL (2.0-7.7); Basophil# 0.05 X10^3/uL; Basophil% 0.9 % (0-1); Eosinophil# 0.17 X10^3/uL; Eosinophils% 2.9 % (0-5); Hematocrit 38.5 % (40-54); Hemoglobin 13.4 g/dL (13.0-16.5); Lymphocyte # 1.86 X10^3/ul (4.0); Mean Corp Hgb Conc 34.8 g/dL (32-36); Mean Corpuscular Hgb 31.6 pg (27.0-32.0); Mean Corpuscular Volume 90.8 fL (80-94); Mean Platelet Vol. 10.1 fl (6.2-12.0); Monocyte% 10.3 % (0-10); NRBC Flagged by Analyzer 0 % (0-5); Neutrophil # 3.13 X10^3/uL (2.7-7.7); Neutrophil % 53.7 % (47-70); Platelet Count 195 K/mm3 (150-450); RBC Distribution Width CV 12.3 % (11.6-14.6); RBC Distribution Width SD 40.1 fl (35.1-43.9); Red Blood Count 4.24 M/mm3 (4.6-6.2); White Blood Count 5.8 K/mm3 (4.4-11.0)
[2019-07-17 09:23] LABS: ALB/GLOB Ratio 1.1 RATIO (0.9-2.4); AST(SGOT) 35 U/L (15-37); Alanine Aminotransfer ALT/SGPT 35 U/L (16-61); Albumin, Serum 3.8 g/dL (3.2-5.0); Alkaline Phosphatase 68 U/L (45-117); Anion Gap 5 (5-15); BUN 19 mg/dL (7-18); BUN/Creat Ratio 15.4 RATIO (10-20); Calcium,Total 8.5 mg/dL (8.5-10.1); Chloride 100 mmol/L (98-107); Creatinine, Serum 1.23 mg/dL (0.70-1.30); EST Glomerular Filtration Rate 62 mL/min (>60); Est Glom Filt Rate - Afr Amer 75 mL/min (>60); GGTP 34 U/L (15-85); Globulin 3.5 g/dL (2.2-4.2); Glucose 93 mg/dL (74-106); Magnesium 2.1 mg/dL (1.6-2.6); Phosphorus 3.2 mg/dL (2.5-4.9); Potassium 3.4 mmol/L (3.5-5.1); Protein, Total 7.3 g/dL (6.4-8.2); Sodium Level 137 mmol/L (136-145)
[2019-07-19 14:58] LABS: Tacrolimus (FK506) 2.1 ng/mL (2.0-20.0)
== END 2019-07-17 18:00 | disposition home or self-care (01) ==
LOC: LAB 08:08
PROVIDERS: Family Provider Family Medicine; PCP Family Medicine
DX: R73.02 Impaired glucose tolerance (oral) (principal); E83.30 Disorder of phosphorus metabolism, unspecified; K76.9 Liver disease, unspecified; Z48.23 Encounter for aftercare following liver transplant; Z94.4 Liver transplant status; Z41.8 Encounter for other procedures for purposes other than remedying health state; E61.2 Magnesium deficiency
CPT/HCPCS: 36415; 80053; 80197; 82977; 83735; 84100; 85025

== ENCOUNTER 2019-11-04 14:27 | Outpatient (RCR) | payer MEDICARE, OTHER, SELFPAY ==
[2019-11-04 15:21] LABS: Absolute Lymphocyte Count 1.84 X10^3/uL (0.83-4.51); Absolute Neutrophil Count 2.8 X10^3/uL (2.0-7.7); Basophil# 0.05 X10^3/uL; Eosinophil# 0.06 X10^3/uL; Eosinophils% 1.1 % (0-5); Hematocrit 40.4 % (40-54); Hemoglobin 13.8 g/dL (13.0-16.5); Lymphocyte # 1.84 X10^3/ul (4.0); Mean Corp Hgb Conc 34.2 g/dL (32-36); Mean Corpuscular Hgb 31.7 pg (27.0-32.0); Mean Corpuscular Volume 92.9 fL (80-94); Mean Platelet Vol. 9.9 fl (6.2-12.0); Monocyte# 0.52 X10^3/uL; Monocyte% 9.9 % (0-10); NRBC Flagged by Analyzer 0 % (0-5); Neutrophil # 2.78 X10^3/uL (2.7-7.7); Neutrophil % 52.8 % (47-70); Platelet Count 220 K/mm3 (150-450); RBC Distribution Width SD 40.5 fl (35.1-43.9); Red Blood Count 4.35 M/mm3 (4.6-6.2); White Blood Count 5.3 K/mm3 (4.4-11.0)
[2019-11-04 16:58] LABS: ALB/GLOB Ratio 1.1 RATIO (0.9-2.4); AST(SGOT) 31 U/L (15-37); Alanine Aminotransfer ALT/SGPT 29 U/L (16-61); Albumin, Serum 3.8 g/dL (3.2-5.0); Alkaline Phosphatase 65 U/L (45-117); Anion Gap 3 (5-15); BUN 19 mg/dL (7-18); BUN/Creat Ratio 15.6 RATIO (10-20); Calcium,Total 9.2 mg/dL (8.5-10.1); Chloride 103 mmol/L (98-107); Creatinine, Serum 1.22 mg/dL (0.70-1.30); EST Glomerular Filtration Rate 63 mL/min (>60); Est Glom Filt Rate - Afr Amer 76 mL/min (>60); GGTP 29 U/L (15-85); Globulin 3.5 g/dL (2.2-4.2); Glucose 84 mg/dL (74-106); Magnesium 2.3 mg/dL (1.6-2.6); Phosphorus 4.2 mg/dL (2.5-4.9); Protein, Total 7.3 g/dL (6.4-8.2); Sodium Level 138 mmol/L (136-145)
[2019-11-07 20:28] LABS: Tacrolimus (FK506) 2.9 ng/mL (2.0-20.0)
== END 2019-11-04 18:00 | disposition home or self-care (01) ==
LOC: LAB 14:27
PROVIDERS: Family Provider Family Medicine; PCP Family Medicine
DX: Z48.23 Encounter for aftercare following liver transplant (principal); Z41.8 Encounter for other procedures for purposes other than remedying health state; Z94.4 Liver transplant status; K76.9 Liver disease, unspecified; R73.02 Impaired glucose tolerance (oral); E83.30 Disorder of phosphorus metabolism, unspecified
CPT/HCPCS: 36415; 80053; 80197; 82977; 83735; 84100; 85025

== ENCOUNTER → 2019-12-10 14:04 | Outpatient (CLI) | payer MEDICARE, OTHER, SELFPAY | PROVIDERS: PCP Family Medicine; Referring Provider Family Medicine; Visit Provider Family Medicine | DX: Z91.89 Other specified personal risk factors, not elsewhere classified (principal) | CPT/HCPCS: 87635; U0003 ==

== ENCOUNTER 2020-01-06 09:59 | Outpatient (RCR) | payer MEDICARE, OTHER, SELFPAY ==
[2020-01-06 10:51] LABS: Absolute Lymphocyte Count 1.85 X10^3/uL (0.83-4.51); Absolute Neutrophil Count 3.1 X10^3/uL (2.0-7.7); Basophil# 0.03 X10^3/uL; Basophil% 0.5 % (0-1); Eosinophil# 0.09 X10^3/uL; Eosinophils% 1.6 % (0-5); Hematocrit 42.5 % (40-54); Hemoglobin 14.5 g/dL (13.0-16.5); Lymphocyte # 1.85 X10^3/ul (4.0); Lymphocyte % 33.2 % (19-41); Mean Corp Hgb Conc 34.1 g/dL (32-36); Mean Corpuscular Hgb 31.2 pg (27.0-32.0); Mean Corpuscular Volume 91.4 fL (80-94); Mean Platelet Vol. 10.2 fl (6.2-12.0); Monocyte# 0.48 X10^3/uL; Monocyte% 8.6 % (0-10); NRBC Flagged by Analyzer 0 % (0-5); Neutrophil % 55.7 % (47-70); Platelet Count 243 K/mm3 (150-450); RBC Distribution Width CV 11.9 % (11.6-14.6); RBC Distribution Width SD 39.8 fl (35.1-43.9); Red Blood Count 4.65 M/mm3 (4.6-6.2); White Blood Count 5.6 K/mm3 (4.4-11.0)
[2020-01-06 11:33] LABS: ALB/GLOB Ratio 1.1 RATIO (0.9-2.4); AST(SGOT) 26 U/L (15-37); Alanine Aminotransfer ALT/SGPT 24 U/L (16-61); Alkaline Phosphatase 70 U/L (45-117); Anion Gap 3 (5-15); BUN 21 mg/dL (7-18); BUN/Creat Ratio 13.2 RATIO (10-20); Chloride 102 mmol/L (98-107); Cholesterol 153 mg/dL (200); Creatinine, Serum 1.59 mg/dL (0.70-1.30); EST Glomerular Filtration Rate 46 mL/min (>60); Est Glom Filt Rate - Afr Amer 56 mL/min (>60); GGTP 17 U/L (15-85); Globulin 3.6 g/dL (2.2-4.2); Glucose 85 mg/dL (74-106); High Density Lipoprotein 52 mg/dL; Magnesium 2.2 mg/dL (1.6-2.6); Phosphorus 2.9 mg/dL (2.5-4.9); Potassium 3.7 mmol/L (3.5-5.1); Protein, Total 7.6 g/dL (6.4-8.2); Sodium Level 137 mmol/L (136-145); Triglycerides 86 mg/dL; Very Low Density Lipoprotein 17 mg/dL (5-40)
[2020-01-08 20:37] LABS: Tacrolimus (FK506) 4.1 ng/mL (2.0-20.0)
== END 2020-01-06 18:00 | disposition home or self-care (01) ==
LOC: LAB 09:59
PROVIDERS: Family Provider Family Medicine; PCP Family Medicine
DX: Z48.23 Encounter for aftercare following liver transplant (principal); Z41.8 Encounter for other procedures for purposes other than remedying health state; K76.9 Liver disease, unspecified; R73.02 Impaired glucose tolerance (oral); E83.30 Disorder of phosphorus metabolism, unspecified; Z94.4 Liver transplant status
CPT/HCPCS: 80053; 80061; 80197; 82977; 83735; 84100; 85025

== ENCOUNTER 2020-02-03 11:52 | Outpatient (RCR) | payer MEDICARE, OTHER, SELFPAY ==
[2020-02-03 12:30] LABS: Absolute Lymphocyte Count 1.84 X10^3/uL (0.83-4.51); Absolute Neutrophil Count 3.2 X10^3/uL (2.0-7.7); Basophil# 0.05 X10^3/uL; Basophil% 0.9 % (0-1); Eosinophil# 0.08 X10^3/uL; Eosinophils% 1.4 % (0-5); Hematocrit 41.9 % (40-54); Hemoglobin 14.3 g/dL (13.0-16.5); Lymphocyte # 1.84 X10^3/ul (4.0); Lymphocyte % 31.6 % (19-41); Mean Corp Hgb Conc 34.1 g/dL (32-36); Mean Corpuscular Hgb 31.4 pg (27.0-32.0); Mean Corpuscular Volume 91.9 fL (80-94); Mean Platelet Vol. 10.3 fl (6.2-12.0); Monocyte% 10.3 % (0-10); NRBC Flagged by Analyzer 0 % (0-5); Neutrophil # 3.23 X10^3/uL (2.7-7.7); Neutrophil % 55.5 % (47-70); Platelet Count 246 K/mm3 (150-450); RBC Distribution Width CV 11.9 % (11.6-14.6); RBC Distribution Width SD 40.4 fl (35.1-43.9); Red Blood Count 4.56 M/mm3 (4.6-6.2); White Blood Count 5.8 K/mm3 (4.4-11.0)
[2020-02-03 13:00] LABS: ALB/GLOB Ratio 1.1 RATIO (0.9-2.4); AST(SGOT) 28 U/L (15-37); Alanine Aminotransfer ALT/SGPT 31 U/L (16-61); Albumin, Serum 3.9 g/dL (3.2-5.0); Alkaline Phosphatase 67 U/L (45-117); Anion Gap 0 (5-15); BUN 22 mg/dL (7-18); BUN/Creat Ratio 16.4 RATIO (10-20); Chloride 107 mmol/L (98-107); Creatinine, Serum 1.34 mg/dL (0.70-1.30); EST Glomerular Filtration Rate 56 mL/min (>60); Est Glom Filt Rate - Afr Amer 68 mL/min (>60); GGTP 30 U/L (15-85); Globulin 3.4 g/dL (2.2-4.2); Glucose 91 mg/dL (74-106); Phosphorus 2.9 mg/dL (2.5-4.9); Protein, Total 7.3 g/dL (6.4-8.2); Sodium Level 139 mmol/L (136-145)
[2020-02-09 09:07] LABS: Tacrolimus (FK506) 3.5 ng/mL (2.0-20.0)
== END 2020-02-03 18:00 | disposition home or self-care (01) ==
LOC: LAB 11:52
PROVIDERS: Family Provider Family Medicine; PCP Family Medicine
DX: Z48.23 Encounter for aftercare following liver transplant (principal); Z41.8 Encounter for other procedures for purposes other than remedying health state; K76.9 Liver disease, unspecified; R73.02 Impaired glucose tolerance (oral); E83.30 Disorder of phosphorus metabolism, unspecified; Z94.4 Liver transplant status
CPT/HCPCS: 36415; 80053; 80197; 82977; 83735; 84100; 85025

== ENCOUNTER 2020-03-09 10:35 | Outpatient (RCR) | payer MEDICARE, OTHER, SELFPAY ==
[2020-03-09 11:32] LABS: Absolute Neutrophil Count 4.1 X10^3/uL (2.0-7.7); Basophil# 0.05 X10^3/uL; Basophil% 0.7 % (0-1); Eosinophils% 2.9 % (0-5); Hematocrit 43.7 % (40-54); Hemoglobin 14.8 g/dL (13.0-16.5); Lymphocyte % 26.1 % (19-41); Mean Corp Hgb Conc 33.9 g/dL (32-36); Mean Corpuscular Hgb 30.4 pg (27.0-32.0); Mean Corpuscular Volume 89.7 fL (80-94); Monocyte# 0.74 X10^3/uL; Monocyte% 10.7 % (0-10); NRBC Flagged by Analyzer 0 % (0-5); Neutrophil # 4.08 X10^3/uL (2.7-7.7); Neutrophil % 59.3 % (47-70); Platelet Count 237 K/mm3 (150-450); RBC Distribution Width CV 11.8 % (11.6-14.6); Red Blood Count 4.87 M/mm3 (4.6-6.2); White Blood Count 6.9 K/mm3 (4.4-11.0)
[2020-03-09 12:05] LABS: ALB/GLOB Ratio 1.1 RATIO (0.9-2.4); AST(SGOT) 22 U/L (15-37); Alanine Aminotransfer ALT/SGPT 27 U/L (16-61); Alkaline Phosphatase 70 U/L (45-117); Anion Gap 3 (5-15); BUN 18 mg/dL (7-18); BUN/Creat Ratio 13.6 RATIO (10-20); Calcium,Total 8.9 mg/dL (8.5-10.1); Chloride 103 mmol/L (98-107); Creatinine, Serum 1.32 mg/dL (0.70-1.30); EST Glomerular Filtration Rate 57 mL/min (>60); Est Glom Filt Rate - Afr Amer 69 mL/min (>60); GGTP 25 U/L (15-85); Globulin 3.5 g/dL (2.2-4.2); Glucose 88 mg/dL (74-106); Magnesium 2.1 mg/dL (1.6-2.6); Phosphorus 3.1 mg/dL (2.5-4.9); Potassium 3.5 mmol/L (3.5-5.1); Protein, Total 7.5 g/dL (6.4-8.2); Sodium Level 139 mmol/L (136-145)
[2020-03-11 20:39] LABS: Tacrolimus (FK506) 3.6 ng/mL (2.0-20.0)
== END 2020-03-09 18:00 | disposition home or self-care (01) ==
LOC: LAB 10:35
PROVIDERS: Family Provider Family Medicine; PCP Family Medicine
DX: Z48.23 Encounter for aftercare following liver transplant (principal); Z41.8 Encounter for other procedures for purposes other than remedying health state; K76.9 Liver disease, unspecified; E83.30 Disorder of phosphorus metabolism, unspecified; R73.02 Impaired glucose tolerance (oral); Z94.4 Liver transplant status
CPT/HCPCS: 36415; 80053; 80197; 82977; 83735; 84100; 85025

== ENCOUNTER 2020-05-05 11:02 | Outpatient (RCR) | payer MEDICARE, OTHER, SELFPAY ==
[2020-05-05 12:00] LABS: Absolute Lymphocyte Count 1.73 X10^3/uL (0.83-4.51); Absolute Neutrophil Count 3.8 X10^3/uL (2.0-7.7); Basophil# 0.03 X10^3/uL; Basophil% 0.5 % (0-1); Eosinophils% 1.6 % (0-5); Hematocrit 44.9 % (40-54); Hemoglobin 15.1 g/dL (13.0-16.5); Lymphocyte # 1.73 X10^3/ul (4.0); Lymphocyte % 27.7 % (19-41); Mean Corp Hgb Conc 33.6 g/dL (32-36); Mean Corpuscular Hgb 30.7 pg (27.0-32.0); Mean Corpuscular Volume 91.3 fL (80-94); Mean Platelet Vol. 10.3 fl (6.2-12.0); Monocyte# 0.55 X10^3/uL; Monocyte% 8.8 % (0-10); NRBC Flagged by Analyzer 0 % (0-5); Neutrophil % 60.9 % (47-70); Platelet Count 243 K/mm3 (150-450); RBC Distribution Width CV 12.2 % (11.6-14.6); RBC Distribution Width SD 40.5 fl (35.1-43.9); Red Blood Count 4.92 M/mm3 (4.6-6.2); White Blood Count 6.2 K/mm3 (4.4-11.0)
[2020-05-05 12:30] LABS: ALB/GLOB Ratio 1.1 RATIO (0.9-2.4); AST(SGOT) 25 U/L (15-37); Alanine Aminotransfer ALT/SGPT 26 U/L (16-61); Albumin, Serum 4.1 g/dL (3.2-5.0); Alkaline Phosphatase 65 U/L (45-117); Anion Gap 5 (5-15); BUN 18 mg/dL (7-18); Calcium,Total 9.8 mg/dL (8.5-10.1); Chloride 101 mmol/L (98-107); Creatinine, Serum 1.29 mg/dL (0.70-1.30); EST Glomerular Filtration Rate 59 mL/min (>60); Est Glom Filt Rate - Afr Amer 71 mL/min (>60); GGTP 25 U/L (15-85); Globulin 3.6 g/dL (2.2-4.2); Glucose 114 mg/dL (74-106); Potassium 3.6 mmol/L (3.5-5.1); Protein, Total 7.7 g/dL (6.4-8.2); Sodium Level 140 mmol/L (136-145)
[2020-05-08 12:59] LABS: Tacrolimus (FK506) < 1.0 ng/mL (2.0-20.0)
== END 2020-05-05 18:00 | disposition home or self-care (01) ==
LOC: LAB 11:02
PROVIDERS: Family Provider Family Medicine; PCP Family Medicine
DX: Z48.23 Encounter for aftercare following liver transplant (principal); K76.9 Liver disease, unspecified; Z41.8 Encounter for other procedures for purposes other than remedying health state; E83.30 Disorder of phosphorus metabolism, unspecified; R73.02 Impaired glucose tolerance (oral); Z94.4 Liver transplant status
CPT/HCPCS: 36415; 80053; 80197; 82977; 85025

== ENCOUNTER 2020-06-17 11:46 | Outpatient (RCR) | payer MEDICARE, OTHER, SELFPAY ==
[2020-06-17 12:24] LABS: Absolute Lymphocyte Count 2.01 X10^3/uL (0.83-4.51); Absolute Neutrophil Count 2.9 X10^3/uL (2.0-7.7); Basophil# 0.04 X10^3/uL; Basophil% 0.7 % (0-1); Eosinophil# 0.16 X10^3/uL; Eosinophils% 2.8 % (0-5); Hematocrit 41.5 % (40-54); Hemoglobin 13.8 g/dL (13.0-16.5); Lymphocyte # 2.01 X10^3/ul (0.83-4.51); Lymphocyte % 35.7 % (19-41); Mean Corp Hgb Conc 33.3 g/dL (32-36); Mean Corpuscular Hgb 30.3 pg (27.0-32.0); Mean Corpuscular Volume 91.2 fL (80-94); Mean Platelet Vol. 9.6 fl (6.2-12.0); Monocyte# 0.55 X10^3/uL; Monocyte% 9.8 % (0-10); NRBC Flagged by Analyzer 0 % (0-5); Neutrophil # 2.86 X10^3/uL (2.7-7.7); Neutrophil % 50.8 % (47-70); Platelet Count 235 K/mm3 (150-450); RBC Distribution Width CV 12.4 % (11.6-14.6); RBC Distribution Width SD 40.8 fl (35.1-43.9); Red Blood Count 4.55 M/mm3 (4.6-6.2); White Blood Count 5.6 K/mm3 (4.4-11.0)
[2020-06-17 12:55] LABS: ALB/GLOB Ratio 1.1 RATIO (0.9-2.4); AST(SGOT) 27 U/L (15-37); Alanine Aminotransfer ALT/SGPT 27 U/L (16-61); Albumin, Serum 3.9 g/dL (3.2-5.0); Alkaline Phosphatase 57 U/L (45-117); Anion Gap 3 (5-15); BUN 22 mg/dL (7-18); BUN/Creat Ratio 17.5 RATIO (10-20); Calcium,Total 8.9 mg/dL (8.5-10.1); Chloride 104 mmol/L (98-107); Cholesterol 147 mg/dL (200); Creatinine, Serum 1.26 mg/dL (0.70-1.30); EST Glomerular Filtration Rate 60 mL/min (>60); Est Glom Filt Rate - Afr Amer 73 mL/min (>60); GGTP 24 U/L (15-85); Globulin 3.5 g/dL (2.2-4.2); Glucose 91 mg/dL (74-106); High Density Lipoprotein 49 mg/dL; Potassium 3.9 mmol/L (3.5-5.1); Protein, Total 7.4 g/dL (6.4-8.2); Sodium Level 139 mmol/L (136-145); Triglycerides 106 mg/dL; Very Low Density Lipoprotein 21 mg/dL (5-40)
[2020-06-18 14:54] LABS: Magnesium 1.9 mg/dL (1.6-2.6); Phosphorus 2.7 mg/dL (2.5-4.9)
[2020-06-20 17:29] LABS: Tacrolimus (FK506) 3.4 ng/mL (2.0-20.0)
== END 2020-06-17 18:00 | disposition home or self-care (01) ==
LOC: LAB 11:46
PROVIDERS: Family Provider Family Medicine; PCP Family Medicine
DX: Z48.23 Encounter for aftercare following liver transplant (principal); Z41.8 Encounter for other procedures for purposes other than remedying health state; K76.9 Liver disease, unspecified; E83.30 Disorder of phosphorus metabolism, unspecified; R73.02 Impaired glucose tolerance (oral); Z94.4 Liver transplant status
CPT/HCPCS: 36415; 80053; 80061; 80197; 82977; 83735; 84100; 85025

== ENCOUNTER 2020-08-26 10:56 | Outpatient (RCR) | payer MEDICARE, OTHER, SELFPAY ==
[2020-08-26 12:37] LABS: Absolute Lymphocyte Count 1.38 X10^3/uL (0.83-4.51); Absolute Neutrophil Count 4.2 X10^3/uL (2.0-7.7); Basophil# 0.06 X10^3/uL; Basophil% 0.9 % (0-1); Eosinophil# 0.11 X10^3/uL; Eosinophils% 1.7 % (0-5); Hematocrit 39.3 % (40-54); Hemoglobin 13.6 g/dL (13.0-16.5); Lymphocyte # 1.38 X10^3/ul (0.83-4.51); Lymphocyte % 21.5 % (19-41); Mean Corp Hgb Conc 34.6 g/dL (32-36); Mean Corpuscular Hgb 31.7 pg (27.0-32.0); Mean Corpuscular Volume 91.6 fL (80-94); Mean Platelet Vol. 10.6 fl (6.2-12.0); Monocyte# 0.63 X10^3/uL; Monocyte% 9.8 % (0-10); NRBC Flagged by Analyzer 0 % (0-5); Neutrophil # 4.21 X10^3/uL (2.7-7.7); Neutrophil % 65.8 % (47-70); Platelet Count 220 K/mm3 (150-450); RBC Distribution Width CV 12.2 % (11.6-14.6); Red Blood Count 4.29 M/mm3 (4.6-6.2); White Blood Count 6.4 K/mm3 (4.4-11.0)
[2020-08-26 12:53] LABS: Microalbumin,Random Urine 50.5 mg/L (NO RANGE EST.); Microalbumin:Creatinine Ratio 88.6 mg/g CRE (<30 mg/g CRE)
[2020-08-26 13:07] LABS: ALB/GLOB Ratio 1.1 RATIO (0.9-2.4); AST(SGOT) 35 U/L (15-37); Alanine Aminotransfer ALT/SGPT 30 U/L (16-61); Albumin, Serum 4.1 g/dL (3.2-5.0); Alkaline Phosphatase 72 U/L (45-117); Anion Gap 5 (5-15); BUN 22 mg/dL (7-18); BUN/Creat Ratio 17.7 RATIO (10-20); Calcium,Total 8.9 mg/dL (8.5-10.1); Chloride 103 mmol/L (98-107); Cholesterol 153 mg/dL (200); Creatinine, Serum 1.24 mg/dL (0.70-1.30); EST Glomerular Filtration Rate 62 mL/min (>60); Est Glom Filt Rate - Afr Amer 74 mL/min (>60); GGTP 31 U/L (15-85); Globulin 3.7 g/dL (2.2-4.2); Glucose 67 mg/dL (74-106); High Density Lipoprotein 49 mg/dL; Magnesium 2.6 mg/dL (1.6-2.6); PSA,Total - Annual Screen 3.14 ng/mL (0.00-4.00); Phosphorus 3.9 mg/dL (2.5-4.9); Potassium 3.9 mmol/L (3.5-5.1); Protein, Total 7.8 g/dL (6.4-8.2); Sodium Level 138 mmol/L (136-145); Triglycerides 92 mg/dL; Very Low Density Lipoprotein 18 mg/dL (5-40)
[2020-08-28 10:11] LABS: Tacrolimus (FK506) 3.1 ng/mL (2.0-20.0)
== END 2020-08-26 18:00 | disposition home or self-care (01) ==
LOC: LAB 10:56
PROVIDERS: Family Provider Family Medicine; PCP Family Medicine
DX: Z12.5 Encounter for screening for malignant neoplasm of prostate (principal); Z48.23 Encounter for aftercare following liver transplant; Z41.8 Encounter for other procedures for purposes other than remedying health state; K76.9 Liver disease, unspecified; E61.2 Magnesium deficiency; R73.02 Impaired glucose tolerance (oral); Z94.4 Liver transplant status
CPT/HCPCS: 36415; 80053; 80061; 80197; 82043; 82570; 82977; 83735; 84100; 84153; 85025; 86769; G0103

== ENCOUNTER 2020-12-09 12:24 | Outpatient (RCR) | payer MEDICARE, OTHER, SELFPAY ==
[2020-12-09 14:07] LABS: Absolute Lymphocyte Count 1.39 X10^3/uL (0.83-4.51); Absolute Neutrophil Count 2.3 X10^3/uL (2.0-7.7); Basophil# 0.05 X10^3/uL; Eosinophil# 0.38 X10^3/uL; Eosinophils% 7.9 % (0-5); Hematocrit 41.7 % (40-54); Hemoglobin 14.1 g/dL (13.0-16.5); Lymphocyte # 1.39 X10^3/ul (0.83-4.51); Lymphocyte % 28.7 % (19-41); Mean Corp Hgb Conc 33.8 g/dL (32-36); Mean Corpuscular Hgb 30.7 pg (27.0-32.0); Mean Corpuscular Volume 90.7 fL (80-94); Mean Platelet Vol. 10.2 fl (6.2-12.0); Monocyte# 0.74 X10^3/uL; Monocyte% 15.3 % (0-10); NRBC Flagged by Analyzer 0 % (0-5); Neutrophil # 2.27 X10^3/uL (2.7-7.7); Neutrophil % 46.9 % (47-70); Platelet Count 200 K/mm3 (150-450); RBC Distribution Width CV 12.5 % (11.6-14.6); RBC Distribution Width SD 41.9 fl (35.1-43.9); White Blood Count 4.8 K/mm3 (4.4-11.0)
[2020-12-09 14:40] LABS: AST(SGOT) 32 U/L (15-37); Alanine Aminotransfer ALT/SGPT 30 U/L (16-61); Albumin, Serum 3.8 g/dL (3.2-5.0); Alkaline Phosphatase 62 U/L (45-117); Anion Gap 5 (5-15); BUN 19 mg/dL (7-18); Calcium,Total 9.1 mg/dL (8.5-10.1); Chloride 100 mmol/L (98-107); Cholesterol 154 mg/dL (200); Creatinine, Serum 1.36 mg/dL (0.70-1.30); EST Glomerular Filtration Rate 55 mL/min (>60); Est Glom Filt Rate - Afr Amer 67 mL/min (>60); GGTP 34 U/L (15-85); Glucose 87 mg/dL (74-106); High Density Lipoprotein 63 mg/dL; Magnesium 2.3 mg/dL (1.6-2.6); Potassium 3.5 mmol/L (3.5-5.1); Protein, Total 7.8 g/dL (6.4-8.2); Sodium Level 138 mmol/L (136-145); Triglycerides 59 mg/dL; Very Low Density Lipoprotein 12 mg/dL (5-40)
[2020-12-13 13:03] LABS: Tacrolimus (FK506) 1.4 ng/mL (2.0-20.0)
== END 2021-01-02 02:45 | disposition home or self-care (01) ==
LOC: LAB 12:24
PROVIDERS: Family Provider Family Medicine; PCP Family Medicine
DX: Z48.23 Encounter for aftercare following liver transplant (principal); K76.9 Liver disease, unspecified; E83.30 Disorder of phosphorus metabolism, unspecified; R73.02 Impaired glucose tolerance (oral); Z94.4 Liver transplant status
CPT/HCPCS: 36415; 80053; 80061; 80197; 82977; 83735; 84100; 85025

== ENCOUNTER 2021-02-14 16:42 | Outpatient (RCR) | payer MEDICARE, OTHER, SELFPAY ==
[2021-02-14 17:11] LABS: Absolute Neutrophil Count 4.3 X10^3/uL (2.0-7.7); Basophil# 0.06 X10^3/uL; Basophil% 0.8 % (0-1); Eosinophil# 0.22 X10^3/uL; Eosinophils% 3.1 % (0-5); Hematocrit 40.5 % (40-54); Hemoglobin 14.4 g/dL (13.0-16.5); Lymphocyte % 26.6 % (19-41); Mean Corp Hgb Conc 35.6 g/dL (32-36); Mean Corpuscular Hgb 31.6 pg (27.0-32.0); Mean Corpuscular Volume 88.8 fL (80-94); Mean Platelet Vol. 9.6 fl (6.2-12.0); Monocyte# 0.68 X10^3/uL; Monocyte% 9.5 % (0-10); NRBC Flagged by Analyzer 0 % (0-5); Neutrophil # 4.25 X10^3/uL (2.7-7.7); Neutrophil % 59.6 % (47-70); Platelet Count 247 K/mm3 (150-450); RBC Distribution Width CV 12.1 % (11.6-14.6); RBC Distribution Width SD 39.5 fl (35.1-43.9); Red Blood Count 4.56 M/mm3 (4.6-6.2); White Blood Count 7.1 K/mm3 (4.4-11.0)
[2021-02-14 17:28] LABS: AST(SGOT) 28 U/L (15-37); Alanine Aminotransfer ALT/SGPT 27 U/L (16-61); Albumin, Serum 3.7 g/dL (3.2-5.0); Alkaline Phosphatase 68 U/L (45-117); Anion Gap 4 (5-15); BUN 20 mg/dL (7-18); BUN/Creat Ratio 14.5 RATIO (10-20); Calcium,Total 9.5 mg/dL (8.5-10.1); Chloride 103 mmol/L (98-107); Cholesterol 149 mg/dL (200); Creatinine, Serum 1.38 mg/dL (0.70-1.30); EST Glomerular Filtration Rate 54 mL/min (>60); Est Glom Filt Rate - Afr Amer 66 mL/min (>60); GGTP 23 U/L (15-85); Globulin 3.7 g/dL (2.2-4.2); Glucose 103 mg/dL (74-106); High Density Lipoprotein 45 mg/dL; Magnesium 2.1 mg/dL (1.6-2.6); Phosphorus 2.8 mg/dL (2.5-4.9); Potassium 3.5 mmol/L (3.5-5.1); Protein, Total 7.4 g/dL (6.4-8.2); Sodium Level 140 mmol/L (136-145); Triglycerides 181 mg/dL; Very Low Density Lipoprotein 36 mg/dL (5-40)
[2021-02-18 21:23] LABS: Tacrolimus (FK506) 2.5 ng/mL (2.0-20.0)
== END 2021-03-05 18:00 | disposition home or self-care (01) ==
LOC: LAB 16:42
PROVIDERS: Family Provider Family Medicine; PCP Family Medicine
DX: Z48.23 Encounter for aftercare following liver transplant (principal); K76.9 Liver disease, unspecified; E83.30 Disorder of phosphorus metabolism, unspecified; E61.2 Magnesium deficiency; R73.02 Impaired glucose tolerance (oral); Z94.4 Liver transplant status
CPT/HCPCS: 36415; 80053; 80061; 80197; 82977; 83735; 84100; 85025

== ENCOUNTER 2021-04-20 07:55 | Outpatient (RCR) | payer MEDICARE, OTHER, SELFPAY ==
[2021-04-20 08:35] LABS: Absolute Lymphocyte Count 2.62 X10^3/uL (0.83-4.51); Absolute Neutrophil Count 3.4 X10^3/uL (2.0-7.7); Basophil# 0.06 X10^3/uL; Basophil% 0.9 % (0-1); Eosinophil# 0.16 X10^3/uL; Eosinophils% 2.3 % (0-5); Hemoglobin 14.3 g/dL (13.0-16.5); Lymphocyte # 2.62 X10^3/ul (0.83-4.51); Lymphocyte % 37.9 % (19-41); Mean Corp Hgb Conc 34.9 g/dL (32-36); Mean Corpuscular Hgb 31.4 pg (27.0-32.0); Mean Corpuscular Volume 90.1 fL (80-94); Mean Platelet Vol. 9.7 fl (6.2-12.0); Monocyte# 0.67 X10^3/uL; Monocyte% 9.7 % (0-10); NRBC Flagged by Analyzer 0 % (0-5); Neutrophil # 3.38 X10^3/uL (2.7-7.7); Neutrophil % 48.9 % (47-70); Platelet Count 249 K/mm3 (150-450); RBC Distribution Width CV 11.9 % (11.6-14.6); RBC Distribution Width SD 39.4 fl (35.1-43.9); Red Blood Count 4.55 M/mm3 (4.6-6.2); White Blood Count 6.9 K/mm3 (4.4-11.0)
[2021-04-20 09:00] LABS: AST(SGOT) 26 U/L (15-37); Alanine Aminotransfer ALT/SGPT 26 U/L (16-61); Albumin, Serum 3.8 g/dL (3.2-5.0); Alkaline Phosphatase 74 U/L (45-117); Anion Gap 5 (5-15); BUN 18 mg/dL (7-18); BUN/Creat Ratio 16.8 RATIO (10-20); Calcium,Total 8.9 mg/dL (8.5-10.1); Chloride 99 mmol/L (98-107); Cholesterol 137 mg/dL (200); Creatinine, Serum 1.07 mg/dL (0.70-1.30); EST Glomerular Filtration Rate 73 mL/min (>60); Est Glom Filt Rate - Afr Amer 88 mL/min (>60); GGTP 37 U/L (15-85); Glucose 96 mg/dL (74-106); High Density Lipoprotein 40 mg/dL; Magnesium 2.2 mg/dL (1.6-2.6); Phosphorus 2.4 mg/dL (2.5-4.9); Potassium 3.6 mmol/L (3.5-5.1); Protein, Total 7.8 g/dL (6.4-8.2); Sodium Level 136 mmol/L (136-145); Triglycerides 134 mg/dL; Very Low Density Lipoprotein 27 mg/dL (5-40)
[2021-04-23 16:33] LABS: Tacrolimus (FK506) 2.8 ng/mL (2.0-20.0)
== END 2021-04-20 18:00 | disposition home or self-care (01) ==
LOC: LAB 07:55
PROVIDERS: Family Provider Family Medicine; PCP Family Medicine
DX: Z48.23 Encounter for aftercare following liver transplant (principal); K76.9 Liver disease, unspecified; E83.30 Disorder of phosphorus metabolism, unspecified; E61.2 Magnesium deficiency; R73.02 Impaired glucose tolerance (oral); Z94.4 Liver transplant status
CPT/HCPCS: 36415; 80053; 80061; 80197; 82977; 83735; 84100; 85025

== ENCOUNTER 2021-05-28 19:59 | Emergency (ER) | payer MEDICARE, OTHER, SELFPAY ==
[2021-05-28 19:59] VITALS: BP 135/93; PULSE 90; RESP 15; TEMP 35.8; O2SAT 100; BMI 20.9
--- NOTE | 2021-05-28 20:13 | ED.VIS.LOWEX ---
HPI History of Present Illness Chief Complaint: Lower Extremity Injury Narrative Narrative: Patient presenting with right calf pain and swelling. He states he noticed it today. He has had no injury. Is painful when he walks. He states he does not have any history of DVT/PE. He states he has not been recently bedridden or immobilized, no history of cancer, recent long distance travel, exogenous hormones. Patient denies any chest pain or shortness of breath. Patient denies any systemic signs or symptoms and states he feels otherwise well. He states he did recently travel to [facility] by car but nothing longer than this. PFSH PFSH Home Medications Tenofovir Disoproxil Fumarate [Viread] 300 mg PO DAILY 01/03/16 [History Last Taken Unknown] Venlafaxine Xr [Effexor Xr] 75 mg PO DAILY 01/03/16 [History Last Taken Unknown] citalopram 20 mg PO DAILY 01/03/16 [History Last Taken Unknown] coenzyme Q10 [Co Q-10] 200 mg PO DAILY 01/03/16 [History Last Taken Unknown] potassium citrate [Urocit-K] 5 meq PO DAILY 01/03/16 [History Last Taken Unknown] tacrolimus [Prograf] 1 tab PO Q12 01/03/16 [History Last Taken Unknown] alprazolam [Xanax] 1 mg PO PRN PRN 07/08/17 [History Last Taken Unknown] amlodipine 0.25 - 0.5 mg PO DAILY 07/08/17 [History Last Taken Unknown] cephalexin 500 mg PO Q6 #40 capsule 07/08/17 [Rx Last Taken Unknown] diphenhydramine HCl [Benadryl] 25 mg PO QHS PRN 07/08/17 [History Last Taken Unknown] multivitamin [Multiple Vitamins] 1 tab PO DAILY 07/08/17 [History Last Taken Unknown] sulfamethoxazole-trimethoprim 1 tab PO BID #20 tablet 07/08/17 [Rx Last Taken Unknown] Allergy/AdvReac Type Severity Reaction Status Date / Time No Known Allergies Allergy Verified 05/28/21 20:03 Social History Smoking Status: Never smoker ROS ROS ED Constitutional Constitutional ED: Denies chills or fever(s) Eyes Eyes: Denies blurry vision or diplopia ENT ENT ED: Denies rhinorrhea or sore throat Cardiovascular Cardiovascular: Denies chest pain or palpitations Respiratory/Chest Respiratory/Chest: Denies cough, dyspnea or sputum Gastrointestinal Gastrointestinal: Denies abdominal pain, nausea or vomiting Genitourinary Genitourinary ED: Denies dysuria or hematuria Musculoskeletal Musculoskeletal: Reports other Details: Left calf pain and swelling ; Denies myalgias Integumentary Denies rash Neurologic Neurologic: Denies headache(s) or weakness Psychiatric Psychiatric: Denies anxiety or depression EXAM Physical Exam Const Vital Signs: 05/28/21 19:59 Temperature 96.5 F L Temperature Source Temporal Pulse Rate 90 Respiratory Rate 15 Blood Pressure 135/93 H Blood Pressure Mean 107 Pulse Ox 100 Oxygen Delivery Method Room Air Positive well nourished General Appearance ED: NAD HEENT Reports moist mucous membranes normocephalic and atraumatic Eyes PERRL Resp normal respiratory effort and clear to auscultation bilaterally Cardio regular rate and regular rhythm Extremity Extremity Narrative: Left medial calf has mild erythema and significant swelling. It is not fluctuant. No increased warmth or cellulitic change. No lymphangitic streaking. Neuro oriented x3 Sensorium / Orientation: alert Psych mental status grossly normal MDM MDM MDM Narrative Medical decision making narrative: Patient presenting with right calf pain and swelling. This does not appear to be infectious in nature. By Wells criteria is scores of 2. Is not having chest pain or shortness of breath. Due to the time in the ED do not have ultrasound here after discussion he is amenable to Lovenox overnight till he get his ultrasound. 2 he has specifically no history of brain aneurysm, intracranial hemorrhage, GI bleeding, recent surgery. I counseled him at length that he needs to be cautious while anticoagulated. If he starts to notice he is having black or bloody stools or falls and hit his head he should return to the ER for evaluation. Nausea understanding. He will be scheduled an ultrasound for tomorrow. Patient stated his surgery Impression: 1. Right calf swelling Discharge Plan Triage Chief Complaint: Lower Extremity Injury ED Provider: Fco Medrano Dx/Rx/DC Orders Instructions: ED Peripheral Edema, Unilateral Prescriptions: No Action citalopram 20 MG tablet 20 mg PO DAILY RF: 0 potassium citrate [Urocit-K 5] 5 MEQ Tablet.Er 5 meq PO DAILY RF: 0 tacrolimus [Prograf] 0.5 MG capsule 1 tab PO Q12 RF: 0 coenzyme Q10 [Co Q-10] 200 MG capsule 200 mg PO DAILY RF: 0 Tenofovir Disoproxil Fumarate [Viread] 300 MG tablet 300 mg PO DAILY RF: 0 Venlafaxine Xr [Effexor Xr] 75 MG capsule 75 mg PO DAILY RF: 0 multivitamin [Multiple Vitamins] 1 EACH tablet 1 tab PO DAILY RF: 0 alprazolam [Xanax] 1 MG tablet 1 mg PO PRN PRN (Reason: Anxiety) RF: 0 amlodipine 5 MG tablet 0.25 - 0.5 mg PO DAILY RF: 0 diphenhydramine HCl [Banophen] 25 MG capsule 25 mg PO QHS PRN (Reason: Insomnia) RF: 0 sulfamethoxazole-trimethoprim 1 TABLET tablet 1 tab PO BID Qty: 20 RF: 0 cephalexin 500 MG capsule 500 mg PO Q6 Qty: 40 RF: 0 Primary Care Provider: Asif Mullins Referrals: Asif Mullins MD [Primary Care Provider] - Disposition Disposition: Home, Self Care
[2021-05-28 20:17] VITALS: BP 132/94; PULSE 86; RESP 16; O2SAT 98
[2021-05-28] MEDS: Enoxaparin 80 MG/0.8 ML Syringe 70 MG SC (20:20)
== END 2021-05-28 20:26 | disposition home or self-care (01) ==
PROVIDERS: Emergency Provider Student in an Organized Health Care Education/Training Program; PCP Family Medicine; Visit Provider Student in an Organized Health Care Education/Training Program
DX: M79.89 Other specified soft tissue disorders (principal); M79.661 Pain in right lower leg
CPT/HCPCS: 96372; 99282

== ENCOUNTER 2021-05-29 10:30 | Outpatient (CLI) | payer MEDICARE, OTHER, SELFPAY ==
--- NOTE | 2021-05-29 10:38 | VDLE_ITS ---
Reason For Study: Pain RIGHT GSV is normal. CFV is compressible, spontaneous, phasic, competent and demonstrates normal augmentation. FV is compressible, spontaneous, phasic, competent and demonstrates normal augmentation. POP V is compressible, spontaneous, phasic, competent and demonstrates normal augmentation. T/P Trunk is compressible. PTV is compressible. RT PerV is compressible. Heterogeneous, non vascular structure noted Rt posterior, mid calf (over area of bruising and possible bug bite per patient) measuring 2.52cm x 4.38cm. Procedure This is a venous duplex using B-mode, color flow and spectral Doppler. Exam performed in department. A preliminary report was called and/or faxed to Dr. Mullins. VL/Venous Duplex US, Unilateral Interpretation Summary Deep veins of the right lower extremity are patent and compressible segmentally . There is no evidence of right lower extremity deep vein thrombosis. Valvular competence christie ears intact within the proximal deep venous system on the right . The right great saphenous vein a ppears patent and compressible segmentally. A non-vascular, heterogeneous structure is noted in t he right posterior, mid-calf, measuring 2.52 cm x 4.38 cm. This may represent an abscess or hematom a. Clinical correlation is advised. Ordering Physician: Fco Medrano Referring Physician: Asif Mullins Performed By: Ashley Jorge, YOVANY, RVT
== END 2021-05-29 23:59 | disposition home or self-care (01) ==
LOC: CVS 10:35
PROVIDERS: PCP Family Medicine; Visit Provider Student in an Organized Health Care Education/Training Program
DX: M79.661 Pain in right lower leg (principal)
CPT/HCPCS: 93971

== ENCOUNTER 2021-06-20 16:37 | Outpatient (RCR) | payer MEDICARE, OTHER, SELFPAY ==
[2021-06-20 17:21] LABS: Absolute Lymphocyte Count 2.25 X10^3/uL (0.83-4.51); Absolute Neutrophil Count 4.1 X10^3/uL (2.0-7.7); Basophil# 0.06 X10^3/uL; Basophil% 0.8 % (0-1); Eosinophils% 2.8 % (0-5); Hematocrit 39.6 % (40-54); Hemoglobin 13.7 g/dL (13.0-16.5); Lymphocyte # 2.25 X10^3/ul (0.83-4.51); Mean Corp Hgb Conc 34.6 g/dL (32-36); Mean Corpuscular Hgb 30.9 pg (27.0-32.0); Mean Corpuscular Volume 89.4 fL (80-94); Mean Platelet Vol. 9.7 fl (6.2-12.0); Monocyte# 0.65 X10^3/uL; NRBC Flagged by Analyzer 0 % (0-5); Neutrophil # 4.07 X10^3/uL (2.7-7.7); Platelet Count 288 K/mm3 (150-450); RBC Distribution Width CV 12.3 % (11.6-14.6); RBC Distribution Width SD 40.6 fl (35.1-43.9); Red Blood Count 4.43 M/mm3 (4.6-6.2); White Blood Count 7.3 K/mm3 (4.4-11.0)
[2021-06-20 17:58] LABS: AST(SGOT) 28 U/L (15-37); Alanine Aminotransfer ALT/SGPT 24 U/L (16-61); Albumin, Serum 3.9 g/dL (3.2-5.0); Alkaline Phosphatase 59 U/L (45-117); Anion Gap 6 (5-15); BUN 21 mg/dL (7-18); BUN/Creat Ratio 15.4 RATIO (10-20); Calcium,Total 9.3 mg/dL (8.5-10.1); Chloride 102 mmol/L (98-107); Creatinine, Serum 1.36 mg/dL (0.70-1.30); EST Glomerular Filtration Rate 55 mL/min (>60); Est Glom Filt Rate - Afr Amer 67 mL/min (>60); GGTP 20 U/L (15-85); Globulin 3.8 g/dL (2.2-4.2); Glucose 98 mg/dL (74-106); Magnesium 2.1 mg/dL (1.6-2.6); Phosphorus 3.1 mg/dL (2.5-4.9); Potassium 3.2 mmol/L (3.5-5.1); Protein, Total 7.7 g/dL (6.4-8.2); Sodium Level 139 mmol/L (136-145)
[2021-06-24 16:12] LABS: Tacrolimus (FK506) 2.5 ng/mL (2.0-20.0)
== END 2021-06-20 18:00 | disposition home or self-care (01) ==
LOC: LAB 16:37
PROVIDERS: Family Provider Family Medicine; PCP Family Medicine
DX: Z48.23 Encounter for aftercare following liver transplant (principal); K76.9 Liver disease, unspecified; E83.30 Disorder of phosphorus metabolism, unspecified; E61.2 Magnesium deficiency; R73.02 Impaired glucose tolerance (oral); Z94.4 Liver transplant status
CPT/HCPCS: 36415; 80053; 80197; 82977; 83735; 84100; 85025

== ENCOUNTER → 2021-07-29 11:49 | Outpatient (CLI) | payer MEDICARE, OTHER, SELFPAY ==
[2021-07-29 11:57] VITALS: BP 114/87; PULSE 78; RESP 16; TEMP 36.1; O2SAT 98
[2021-07-29 13:25] VITALS: BP 124/86; PULSE 78; RESP 16; O2SAT 98
== END ==
PROVIDERS: PCP Family Medicine; Referring Provider Family Medicine; Visit Provider Family Medicine
DX: D84.9 Immunodeficiency, unspecified (principal)
CPT/HCPCS: 96372; Q0220

== ENCOUNTER 2021-09-20 14:49 | Outpatient (RCR) | payer MEDICARE, OTHER, SELFPAY ==
[2021-09-20 16:23] LABS: Absolute Lymphocyte Count 2.48 X10^3/uL (0.83-4.51); Absolute Neutrophil Count 3.4 X10^3/uL (2.0-7.7); Basophil# 0.04 X10^3/uL; Basophil% 0.6 % (0-1); Eosinophil# 0.14 X10^3/uL; Eosinophils% 2.1 % (0-5); Hematocrit 39.8 % (40-54); Hemoglobin 13.8 g/dL (13.0-16.5); Lymphocyte # 2.48 X10^3/ul (0.83-4.51); Lymphocyte % 36.7 % (19-41); Mean Corp Hgb Conc 34.7 g/dL (32-36); Mean Corpuscular Hgb 30.6 pg (27.0-32.0); Mean Corpuscular Volume 88.2 fL (80-94); Mean Platelet Vol. 9.9 fl (6.2-12.0); Monocyte# 0.69 X10^3/uL; Monocyte% 10.2 % (0-10); NRBC Flagged by Analyzer 0 % (0-5); Neutrophil # 3.38 X10^3/uL (2.7-7.7); Neutrophil % 50.1 % (47-70); Platelet Count 225 K/mm3 (150-450); RBC Distribution Width CV 12.6 % (11.6-14.6); RBC Distribution Width SD 40.8 fl (35.1-43.9); Red Blood Count 4.51 M/mm3 (4.6-6.2); White Blood Count 6.8 K/mm3 (4.4-11.0)
[2021-09-20 16:56] LABS: ALB/GLOB Ratio 1.1 RATIO (0.9-2.4); AST(SGOT) 30 U/L (15-37); Alanine Aminotransfer ALT/SGPT 32 U/L (16-61); Albumin, Serum 3.7 g/dL (3.2-5.0); Alkaline Phosphatase 64 U/L (45-117); Anion Gap 4 (5-15); BUN 21 mg/dL (7-18); BUN/Creat Ratio 15.4 RATIO (10-20); Calcium,Total 9.2 mg/dL (8.5-10.1); Chloride 101 mmol/L (98-107); Creatinine, Serum 1.36 mg/dL (0.70-1.30); EST Glomerular Filtration Rate 55 mL/min (>60); Est Glom Filt Rate - Afr Amer 67 mL/min (>60); GGTP 30 U/L (15-85); Globulin 3.4 g/dL (2.2-4.2); Glucose 105 mg/dL (74-106); Magnesium 2.3 mg/dL (1.6-2.6); Phosphorus 3.2 mg/dL (2.5-4.9); Potassium 3.7 mmol/L (3.5-5.1); Protein, Total 7.1 g/dL (6.4-8.2); Sodium Level 137 mmol/L (136-145)
[2021-09-21 08:26] LABS: Hepatitis B Surface Antigen Non-Reactive (Nonreactive)
[2021-09-24 13:47] LABS: Tacrolimus (FK506) 3.2 ng/mL (2.0-20.0)
== END 2021-10-02 01:55 | disposition home or self-care (01) ==
LOC: LAB 14:49
PROVIDERS: Family Provider Family Medicine; PCP Family Medicine
DX: K76.9 Liver disease, unspecified (principal); E83.30 Disorder of phosphorus metabolism, unspecified; E61.2 Magnesium deficiency; R73.02 Impaired glucose tolerance (oral); Z94.4 Liver transplant status; Z48.23 Encounter for aftercare following liver transplant
CPT/HCPCS: 36415; 80053; 80197; 82977; 83735; 84100; 85025; 87340

== ENCOUNTER 2021-11-21 10:17 | Outpatient (RCR) | payer MEDICARE, OTHER, SELFPAY ==
[2021-11-21 11:37] LABS: Absolute Lymphocyte Count 1.55 X10^3/uL (0.83-4.51); Absolute Neutrophil Count 3.7 X10^3/uL (2.0-7.7); Basophil# 0.03 X10^3/uL; Basophil% 0.5 % (0-1); Eosinophil# 0.19 X10^3/uL; Eosinophils% 3.2 % (0-5); Hematocrit 41.6 % (40-54); Lymphocyte # 1.55 X10^3/ul (0.83-4.51); Lymphocyte % 25.7 % (19-41); Mean Corp Hgb Conc 33.7 g/dL (32-36); Mean Corpuscular Hgb 30.6 pg (27.0-32.0); Mean Platelet Vol. 10.5 fl (6.2-12.0); Monocyte# 0.53 X10^3/uL; Monocyte% 8.8 % (0-10); NRBC Flagged by Analyzer 0 % (0-5); Neutrophil # 3.71 X10^3/uL (2.7-7.7); Neutrophil % 61.5 % (47-70); Platelet Count 222 K/mm3 (150-450); RBC Distribution Width CV 12.3 % (11.6-14.6); RBC Distribution Width SD 40.9 fl (35.1-43.9); Red Blood Count 4.57 M/mm3 (4.6-6.2)
[2021-11-21 12:56] LABS: AST(SGOT) 31 U/L (15-37); Alanine Aminotransfer ALT/SGPT 27 U/L (16-61); Albumin, Serum 3.8 g/dL (3.2-5.0); Alkaline Phosphatase 66 U/L (45-117); Anion Gap 7 (5-15); BUN 23 mg/dL (7-18); BUN/Creat Ratio 19.5 RATIO (10-20); Calcium,Total 9.2 mg/dL (8.5-10.1); Chloride 101 mmol/L (98-107); Cholesterol 129 mg/dL (200); Creatinine, Serum 1.18 mg/dL (0.70-1.30); EST Glomerular Filtration Rate 65 mL/min (>60); Est Glom Filt Rate - Afr Amer 79 mL/min (>60); GGTP 30 U/L (15-85); Globulin 3.8 g/dL (2.2-4.2); Glucose 97 mg/dL (74-106); High Density Lipoprotein 51 mg/dL; Magnesium 2.3 mg/dL (1.6-2.6); Phosphorus 3.2 mg/dL (2.5-4.9); Protein, Total 7.6 g/dL (6.4-8.2); Sodium Level 138 mmol/L (136-145); Triglycerides 69 mg/dL; Very Low Density Lipoprotein 14 mg/dL (5-40)
[2021-11-21 14:29] LABS: Thyroid Stim Hormone (TSH) 1.07 uIU/mL (0.358-3.74)
[2021-11-25 20:31] LABS: Tacrolimus (FK506) 11.9 ng/mL (2.0-20.0)
== END 2021-11-21 18:00 | disposition home or self-care (01) ==
LOC: LAB 10:17
PROVIDERS: Family Provider Family Medicine; PCP Family Medicine
DX: K76.9 Liver disease, unspecified (principal); E83.30 Disorder of phosphorus metabolism, unspecified; E61.2 Magnesium deficiency; R73.02 Impaired glucose tolerance (oral); Z94.4 Liver transplant status; Z48.23 Encounter for aftercare following liver transplant; R73.03 Prediabetes
CPT/HCPCS: 36415; 80053; 80061; 80197; 82977; 83735; 84100; 84443; 85025

== ENCOUNTER 2021-12-05 16:04 | Outpatient (RCR) | payer MEDICARE, OTHER, SELFPAY ==
[2021-12-05 16:51] LABS: Absolute Lymphocyte Count 2.14 X10^3/uL (0.83-4.51); Basophil# 0.06 X10^3/uL; Basophil% 0.9 % (0-1); Eosinophil# 0.12 X10^3/uL; Eosinophils% 1.7 % (0-5); Hematocrit 40.2 % (40-54); Lymphocyte # 2.14 X10^3/ul (0.83-4.51); Lymphocyte % 30.5 % (19-41); Mean Corp Hgb Conc 34.8 g/dL (32-36); Mean Corpuscular Hgb 31.3 pg (27.0-32.0); Mean Corpuscular Volume 89.9 fL (80-94); Mean Platelet Vol. 10.1 fl (6.2-12.0); Monocyte# 0.67 X10^3/uL; Monocyte% 9.6 % (0-10); NRBC Flagged by Analyzer 0 % (0-5); Neutrophil # 4.01 X10^3/uL (2.7-7.7); Neutrophil % 57.2 % (47-70); Platelet Count 233 K/mm3 (150-450); RBC Distribution Width CV 12.4 % (11.6-14.6); Red Blood Count 4.47 M/mm3 (4.6-6.2)
[2021-12-05 17:18] LABS: AST(SGOT) 27 U/L (15-37); Alanine Aminotransfer ALT/SGPT 31 U/L (16-61); Albumin, Serum 3.8 g/dL (3.2-5.0); Alkaline Phosphatase 71 U/L (45-117); Anion Gap 6 (5-15); BUN 25 mg/dL (7-18); BUN/Creat Ratio 16.9 RATIO (10-20); Calcium,Total 9.6 mg/dL (8.5-10.1); Chloride 99 mmol/L (98-107); Creatinine, Serum 1.48 mg/dL (0.70-1.30); EST Glomerular Filtration Rate 50 mL/min (>60); Est Glom Filt Rate - Afr Amer 60 mL/min (>60); GGTP 39 U/L (15-85); Globulin 3.8 g/dL (2.2-4.2); Glucose 73 mg/dL (74-106); Magnesium 2.3 mg/dL (1.6-2.6); Protein, Total 7.6 g/dL (6.4-8.2); Sodium Level 138 mmol/L (136-145)
[2021-12-05 17:40] LABS: Thyroid Stim Hormone (TSH) 1.49 uIU/mL (0.358-3.74)
[2021-12-10 10:29] LABS: Tacrolimus (FK506) 2.6 ng/mL (2.0-20.0)
== END 2021-12-05 18:00 | disposition home or self-care (01) ==
LOC: LAB 16:04
PROVIDERS: Family Provider Family Medicine; PCP Family Medicine
DX: Z48.23 Encounter for aftercare following liver transplant (principal); K76.9 Liver disease, unspecified; E83.30 Disorder of phosphorus metabolism, unspecified; E61.2 Magnesium deficiency; R73.02 Impaired glucose tolerance (oral); Z94.4 Liver transplant status
CPT/HCPCS: 36415; 80053; 80197; 82977; 83735; 84100; 84443; 85025

== ENCOUNTER → 2022-01-30 | Outpatient (CLI) | payer MEDICARE, OTHER, SELFPAY ==
[2022-01-30 14:45] VITALS: BP 105/79; PULSE 65; RESP 16; TEMP 35.7; O2SAT 99; BMI 21.2
[2022-01-30 15:59] VITALS: BP 108/76; PULSE 70; RESP 16; TEMP 36.5; O2SAT 99
== END | disposition home or self-care (01) ==
LOC: MEDOUTP 14:41
PROVIDERS: PCP Family Medicine; Referring Provider Family Medicine; Visit Provider Family Medicine
DX: D84.9 Immunodeficiency, unspecified (principal)
CPT/HCPCS: 96372; Q0220

== ENCOUNTER → 2022-02-10 | Outpatient (CLI) | payer MEDICARE, OTHER, SELFPAY ==
--- NOTE | 2022-02-10 06:18 | ECHOD_ITS ---
Reason For Study: Arrhythmia Procedure This was a 2D Doppler, Color Flow transthoracic echocardiogram. Exam performed in department. Left Ventricle Normal size and thickness. The left ventricular ejection fraction is 60 %. Diastolic function is indeterminate. Right Ventricle Normal right ventricle. Atria The left and right atria are normal. Mitral Valve The mitral valve is structurally normal. No prolapse or stenosis seen. Tricuspid Valve Trivial tricuspid valve insufficiency. Normal pulmonary artery pressure. Aortic Valve Trisinus/trileaflet aortic valve. Mild (1+) aortic valve insufficiency. Pulmonic Valve The pulmonic valve is not well visualized. Great Vessels Mildly dilated aortic root. Pericardium/Pleural No pericardial effusion. MMode/2D Measurements & Calculations LVIDd: 4.8 cm IVSd: 1.0 cm Ao root diam: 4.0 cm LVIDs: 3.1 cm LVPWd: 1.0 cm LA dimension: 3.8 cm RVDd: 3.1 cm FS: 35.3 % LAV(MOD-bp): 70.8 ml LA A4 area: 18.2 cm2 RA A4 area: 15.1 cm2 LAV(MOD-bp) Indexed: 36.7 ml/m2 LAV(MOD-sp2): 74.8 ml LAV(MOD-sp4): 53.9 ml Time Measurements MV dec time: 0.23 sec Doppler Measurements & Calculations MV E max boyd: 50.3 cm/sec Lat Peak E' Boyd: 8.2 cm/sec Med Peak E' Boyd: 8.1 cm/sec MV A max boyd: 65.3 cm/sec E/E' lat: 6.1 E/E' med: 6.2 MV E/A: 0.77 MV V2 max: 67.4 cm/sec MV P1/2t max boyd: 54.9 cm/sec Ao V2 max: 113.9 cm/sec MV max P.8 mmHg MV P1/2t: 88.7 msec Ao max P.2 mmHg MV V2 mean: 40.6 cm/sec MV dec slope: 181.3 cm/sec2 Ao V2 mean: 69.8 cm/sec MV mean P.75 mmHg MVA(P1/2t): 2.5 cm2 Ao mean P.3 mmHg MV V2 VTI: 25.2 cm Ao V2 VTI: 24.1 cm AV (velocity ratio): 0.80 AI max boyd: 501.2 cm/sec LV V1 max: 85.4 cm/sec PA V2 max: 88.9 cm/sec AI max P.5 mmHg LV V1 max P.9 mmHg LV V1 mean P.8 mmHg AI dec slope: 141.6 cm/sec2 LV V1 mean: 61.8 cm/sec AI P1/2t: 1037 msec LV V1 VTI: 19.4 cm TR max boyd: 223.0 cm/sec TR max P.9 mmHg ECHO/Echo Complete Interpretation Summary The left ventricular ejection fraction is 60 %. Diastolic function is indeterminate. Mild (1+) aortic valve insufficiency. Mildly dilated aortic root. Ordering Physician: Eddie Rivas Referring Physician: Asif Mullins Performed By: Everardo Costa RCS
--- NOTE | 2022-02-13 11:24 | STRESSREP_ITS ---
Stress Test Report Date: 02/10/2022 Procedure: Exercise tolerance test/imaging study Indications: Arrhythmia Consent: Per the patient Procedure: The patient exercised on a Davey protocol for 9 minutes achieving a peak heart rate of 127 bpm (84% predicted maximal heart rate) with a peak blood pressure 162/102 mmHg and a peak MET capacity of 10.1 METs. The baseline ECG demonstrated sinus bradycardia. The peak exercise ECG demonstrated no significant ischemic changes. EKG during recovery revealed no significant ischemic changes [There were no cardiac dysrhythmias pretest, during exercise, or recovery]. The functional capacity was considered excellent for age. There was [no complaint of chest discomfort during exercise or recovery]. The examination was discontinued secondary to dyspnea. Impression: 1. Technically adequate exercise tolerance test 2. Stress test is negative for exercise-induced EKG changes of ischemia 3. The test test is negative for exercise-induced chest pain 4. Functional capacity is excellent for age 5. Nuclear images pending Myocardial perfusion imaging study: Technique: The patient was injected with 11.8 mCi of technetium 99m Cardiolite and subsequently rest SPECT Cardiolite nuclear imaging was obtained in the horizontal long, vertical long, and short axis views. The patient exercised on a Davey protocol. Please see above for details. The patient was injected with 36 mCi of technetium 99m Cardiolite and subsequently stress SPECT Cardiolite nuclear imaging was obtained in the horizontal long, vertical long, and short axis views. A gated Cardiolite study at peak stress was obtained. Interpretation: Rest and stress SPECT Cardiolite nuclear imaging status post realignment, norm alization, and attenuation correction, demonstrates mild decrease in radioisotope uptake in the apex on both the rest and stress images. There is no significant reversibility suggestive of ischemia. The gated Cardiolite study demonstrates no significant regional wall motion abnormalities. The reported LVEF is 63%. These findings are suggestive of apical thinning, normal variant. There is no evidence of significant ischemia or infarction Impression: 1. There is no evidence of significant ischemia or infarction. 2. The gated Cardiolite study reports an LVEF of 63%. This note was generated with [employer] software. It may contain incorrect words, spelling, and punctuation that were not noted in checking the note before signing.
== END | disposition home or self-care (01) ==
PROVIDERS: PCP Family Medicine; Referring Provider Internal Medicine Cardiovascular Disease; Visit Provider Internal Medicine Cardiovascular Disease
DX: I47.1 Supraventricular tachycardia (principal); R06.00 Dyspnea, unspecified
CPT/HCPCS: 78452; 93017; 93306; A9500; A4216

== ENCOUNTER 2022-02-23 08:25 | Outpatient (RCR) | payer MEDICARE, OTHER, SELFPAY ==
[2022-02-23 09:24] LABS: Absolute Lymphocyte Count 1.95 X10^3/uL (0.83-4.51); Absolute Neutrophil Count 3.6 X10^3/uL (2.0-7.7); Basophil# 0.04 X10^3/uL; Basophil% 0.6 % (0-1); Eosinophil# 0.15 X10^3/uL; Eosinophils% 2.4 % (0-5); Hematocrit 43.4 % (40-54); Lymphocyte # 1.95 X10^3/ul (0.83-4.51); Lymphocyte % 30.7 % (19-41); Mean Corp Hgb Conc 34.6 g/dL (32-36); Mean Corpuscular Hgb 32.1 pg (27.0-32.0); Mean Corpuscular Volume 92.7 fL (80-94); Mean Platelet Vol. 10.4 fl (6.2-12.0); Monocyte% 9.4 % (0-10); NRBC Flagged by Analyzer 0 % (0-5); Neutrophil % 56.7 % (47-70); Platelet Count 211 K/mm3 (150-450); RBC Distribution Width CV 12.4 % (11.6-14.6); RBC Distribution Width SD 42.3 fl (35.1-43.9); Red Blood Count 4.68 M/mm3 (4.6-6.2); White Blood Count 6.4 K/mm3 (4.4-11.0)
[2022-02-23 09:49] LABS: ALB/GLOB Ratio 1.1 RATIO (0.9-2.4); AST(SGOT) 26 U/L (15-37); Alanine Aminotransfer ALT/SGPT 27 U/L (16-61); Albumin, Serum 3.9 g/dL (3.2-5.0); Alkaline Phosphatase 65 U/L (45-117); Anion Gap 1 (5-15); BUN 23 mg/dL (7-18); Calcium,Total 9.2 mg/dL (8.5-10.1); Chloride 105 mmol/L (98-107); Cholesterol 147 mg/dL (200); Creatinine, Serum 1.64 mg/dL (0.70-1.30); EST Glomerular Filtration Rate 44 mL/min (>60); Est Glom Filt Rate - Afr Amer 54 mL/min (>60); GGTP 32 U/L (15-85); Globulin 3.4 g/dL (2.2-4.2); Glucose 99 mg/dL (74-106); High Density Lipoprotein 46 mg/dL; Magnesium 2.5 mg/dL (1.6-2.6); Phosphorus 2.8 mg/dL (2.5-4.9); Potassium 4.3 mmol/L (3.5-5.1); Protein, Total 7.3 g/dL (6.4-8.2); Sodium Level 137 mmol/L (136-145); Triglycerides 77 mg/dL; Very Low Density Lipoprotein 15 mg/dL (5-40)
[2022-02-26 09:42] LABS: Tacrolimus (FK506) 2.6 ng/mL (2.0-20.0)
== END 2022-02-23 18:00 | disposition home or self-care (01) ==
LOC: LAB 08:25
PROVIDERS: Family Provider Family Medicine; PCP Family Medicine
DX: Z48.23 Encounter for aftercare following liver transplant (principal); K76.9 Liver disease, unspecified; E83.30 Disorder of phosphorus metabolism, unspecified; E61.2 Magnesium deficiency; R73.02 Impaired glucose tolerance (oral); Z94.4 Liver transplant status; Z20.5 Contact with and (suspected) exposure to viral hepatitis; Z11.59 Encounter for screening for other viral diseases; Z92.25 Personal history of immunosuppression therapy; Z41.8 Encounter for other procedures for purposes other than remedying health state
CPT/HCPCS: 36415; 80053; 80061; 80197; 82977; 83735; 84100; 85025

== ENCOUNTER 2022-04-20 09:50 | Outpatient (RCR) | payer MEDICARE, OTHER, SELFPAY ==
[2022-04-17 14:19] LABS: Absolute Lymphocyte Count 2.56 X10^3/uL (0.83-4.51); Absolute Neutrophil Count 3.5 X10^3/uL (2.0-7.7); Basophil# 0.04 X10^3/uL; Basophil% 0.6 % (0-1); Eosinophil# 0.11 X10^3/uL; Eosinophils% 1.6 % (0-5); Hematocrit 40.4 % (40-54); Hemoglobin 13.6 g/dL (13.0-16.5); Lymphocyte # 2.56 X10^3/ul (0.83-4.51); Lymphocyte % 36.9 % (19-41); Mean Corp Hgb Conc 33.7 g/dL (32-36); Mean Corpuscular Hgb 31.2 pg (27.0-32.0); Mean Corpuscular Volume 92.7 fL (80-94); Mean Platelet Vol. 9.5 fl (6.2-12.0); Monocyte% 10.1 % (0-10); NRBC Flagged by Analyzer 0 % (0-5); Neutrophil # 3.49 X10^3/uL (2.7-7.7); Neutrophil % 50.4 % (47-70); Platelet Count 188 K/mm3 (150-450); RBC Distribution Width CV 12.2 % (11.6-14.6); RBC Distribution Width SD 41.8 fl (35.1-43.9); Red Blood Count 4.36 M/mm3 (4.6-6.2); White Blood Count 6.9 K/mm3 (4.4-11.0)
[2022-04-17 15:10] LABS: ALB/GLOB Ratio 1.1 RATIO (0.9-2.4); AST(SGOT) 37 U/L (15-37); Alanine Aminotransfer ALT/SGPT 39 U/L (16-61); Albumin, Serum 3.8 g/dL (3.2-5.0); Alkaline Phosphatase 60 U/L (45-117); Anion Gap 4 (5-15); BUN 22 mg/dL (7-18); BUN/Creat Ratio 17.3 RATIO (10-20); Calcium,Total 9.1 mg/dL (8.5-10.1); Chloride 106 mmol/L (98-107); Creatinine, Serum 1.27 mg/dL (0.70-1.30); EST Glomerular Filtration Rate 60 mL/min (>60); Est Glom Filt Rate - Afr Amer 72 mL/min (>60); GGTP 42 U/L (15-85); Globulin 3.6 g/dL (2.2-4.2); Glucose 89 mg/dL (74-106); Magnesium 2.1 mg/dL (1.6-2.6); Phosphorus 3.2 mg/dL (2.5-4.9); Potassium 3.9 mmol/L (3.5-5.1); Protein, Total 7.4 g/dL (6.4-8.2); Sodium Level 140 mmol/L (136-145)
[2022-04-20 11:31] LABS: Cholesterol 137 mg/dL (200); High Density Lipoprotein 45 mg/dL; Triglycerides 88 mg/dL; Very Low Density Lipoprotein 18 mg/dL (5-40)
[2022-04-25 20:51] LABS: Tacrolimus (FK506) 2.9 ng/mL (2.0-20.0)
== END 2022-04-20 18:00 | disposition home or self-care (01) ==
LOC: LAB 09:50
PROVIDERS: Family Provider Family Medicine; PCP Family Medicine
DX: Z48.23 Encounter for aftercare following liver transplant (principal); K76.9 Liver disease, unspecified; E83.30 Disorder of phosphorus metabolism, unspecified; E61.2 Magnesium deficiency; R73.02 Impaired glucose tolerance (oral); Z94.4 Liver transplant status
CPT/HCPCS: 36415; 80053; 80061; 80197; 82977; 83735; 84100; 85025

== ENCOUNTER 2022-06-02 10:05 | Outpatient (RCR) | payer MEDICARE, OTHER, SELFPAY ==
[2022-06-02 10:36] LABS: Absolute Lymphocyte Count 2.04 X10^3/uL (0.83-4.51); Absolute Neutrophil Count 3.6 X10^3/uL (2.0-7.7); Basophil# 0.03 X10^3/uL; Basophil% 0.5 % (0-1); Eosinophil# 0.07 X10^3/uL; Eosinophils% 1.1 % (0-5); Hematocrit 41.2 % (40-54); Hemoglobin 14.1 g/dL (13.0-16.5); Lymphocyte # 2.04 X10^3/ul (0.83-4.51); Lymphocyte % 31.2 % (19-41); Mean Corp Hgb Conc 34.2 g/dL (32-36); Mean Corpuscular Hgb 31.3 pg (27.0-32.0); Mean Corpuscular Volume 91.6 fL (80-94); Mean Platelet Vol. 9.6 fl (6.2-12.0); Monocyte# 0.74 X10^3/uL; Monocyte% 11.3 % (0-10); NRBC Flagged by Analyzer 0 % (0-5); Neutrophil # 3.63 X10^3/uL (2.7-7.7); Neutrophil % 55.6 % (47-70); Platelet Count 264 K/mm3 (150-450); RBC Distribution Width CV 11.9 % (11.6-14.6); RBC Distribution Width SD 39.7 fl (35.1-43.9); White Blood Count 6.5 K/mm3 (4.4-11.0)
[2022-06-02 11:20] LABS: ALB/GLOB Ratio 0.9 RATIO (0.9-2.4); AST(SGOT) 24 U/L (15-37); Alanine Aminotransfer ALT/SGPT 26 U/L (16-61); Albumin, Serum 3.6 g/dL (3.2-5.0); Alkaline Phosphatase 61 U/L (45-117); Anion Gap 4 (5-15); BUN 22 mg/dL (7-18); BUN/Creat Ratio 14.7 RATIO (10-20); Calcium,Total 9.5 mg/dL (8.5-10.1); Chloride 103 mmol/L (98-107); Cholesterol 132 mg/dL (200); EST Glomerular Filtration Rate 49 mL/min (>60); Est Glom Filt Rate - Afr Amer 59 mL/min (>60); GGTP 36 U/L (15-85); Globulin 3.8 g/dL (2.2-4.2); Glucose 98 mg/dL (74-106); High Density Lipoprotein 38 mg/dL; Phosphorus 2.9 mg/dL (2.5-4.9); Potassium 4.4 mmol/L (3.5-5.1); Protein, Total 7.4 g/dL (6.4-8.2); Sodium Level 135 mmol/L (136-145); Triglycerides 110 mg/dL; Very Low Density Lipoprotein 22 mg/dL (5-40)
== END 2022-06-02 21:15 | disposition home or self-care (01) ==
LOC: LAB 10:05
PROVIDERS: Family Provider Family Medicine; PCP Family Medicine
DX: Z00.00 Encounter for general adult medical examination without abnormal findings
CPT/HCPCS: 36415; 80053; 80061; 80197; 82977; 83735; 84100; 85025

== ENCOUNTER 2022-08-04 14:55 | Outpatient (RCR) | payer MEDICARE, OTHER, SELFPAY ==
[2022-08-04 15:45] LABS: Absolute Lymphocyte Count 2.42 X10^3/uL (0.83-4.51); Absolute Neutrophil Count 4.2 X10^3/uL (2.0-7.7); Basophil# 0.04 X10^3/uL; Basophil% 0.5 % (0-1); Eosinophil# 0.08 X10^3/uL; Eosinophils% 1.1 % (0-5); Hemoglobin 13.4 g/dL (13.0-16.5); Lymphocyte # 2.42 X10^3/ul (0.83-4.51); Lymphocyte % 32.5 % (19-41); Mean Corp Hgb Conc 34.4 g/dL (32-36); Mean Corpuscular Hgb 31.2 pg (27.0-32.0); Mean Corpuscular Volume 90.9 fL (80-94); Monocyte# 0.69 X10^3/uL; Monocyte% 9.3 % (0-10); NRBC Flagged by Analyzer 0 % (0-5); Neutrophil % 56.3 % (47-70); Platelet Count 245 K/mm3 (150-450); RBC Distribution Width CV 12.2 % (11.6-14.6); RBC Distribution Width SD 40.5 fl (35.1-43.9); Red Blood Count 4.29 M/mm3 (4.6-6.2); White Blood Count 7.5 K/mm3 (4.4-11.0)
[2022-08-04 16:20] LABS: AST(SGOT) 22 U/L (15-37); Alanine Aminotransfer ALT/SGPT 24 U/L (16-61); Albumin, Serum 3.6 g/dL (3.2-5.0); Alkaline Phosphatase 54 U/L (45-117); Anion Gap 5 (5-15); BUN 28 mg/dL (7-18); BUN/Creat Ratio 18.2 RATIO (10-20); Calcium,Total 9.3 mg/dL (8.5-10.1); Chloride 106 mmol/L (98-107); Creatinine, Serum 1.54 mg/dL (0.70-1.30); EST Glomerular Filtration Rate 48 mL/min (>60); Est Glom Filt Rate - Afr Amer 58 mL/min (>60); GGTP 26 U/L (15-85); Globulin 3.7 g/dL (2.2-4.2); Glucose 108 mg/dL (74-106); Magnesium 2.2 mg/dL (1.6-2.6); Phosphorus 3.4 mg/dL (2.5-4.9); Potassium 4.6 mmol/L (3.5-5.1); Protein, Total 7.3 g/dL (6.4-8.2); Sodium Level 139 mmol/L (136-145)
== END 2022-08-04 18:00 | disposition home or self-care (01) ==
LOC: LAB 14:55
PROVIDERS: Family Provider Family Medicine; PCP Family Medicine
DX: Z00.00 Encounter for general adult medical examination without abnormal findings (principal); K76.9 Liver disease, unspecified; Z48.23 Encounter for aftercare following liver transplant; Z94.4 Liver transplant status; Z41.8 Encounter for other procedures for purposes other than remedying health state; E61.2 Magnesium deficiency; E83.30 Disorder of phosphorus metabolism, unspecified; R73.02 Impaired glucose tolerance (oral); Z01.812 Encounter for preprocedural laboratory examination; Z01.818 Encounter for other preprocedural examination
CPT/HCPCS: 36415; 80053; 80197; 82977; 83735; 84100; 85025

== ENCOUNTER 2022-11-02 15:29 | Outpatient (RCR) | payer MEDICARE, OTHER, SELFPAY ==
[2022-11-02 15:59] LABS: Absolute Lymphocyte Count 2.74 X10^3/uL (0.83-4.51); Absolute Neutrophil Count 4.1 X10^3/uL (2.0-7.7); Basophil# 0.04 X10^3/uL; Basophil% 0.5 % (0-1); Eosinophils% 1.3 % (0-5); Hemoglobin 14.1 g/dL (13.0-16.5); Lymphocyte # 2.74 X10^3/ul (0.83-4.51); Lymphocyte % 35.5 % (19-41); Mean Corp Hgb Conc 32.8 g/dL (32-36); Mean Corpuscular Hgb 30.1 pg (27.0-32.0); Mean Corpuscular Volume 91.9 fL (80-94); Mean Platelet Vol. 10.2 fl (6.2-12.0); Monocyte# 0.67 X10^3/uL; Monocyte% 8.7 % (0-10); NRBC Flagged by Analyzer 0 % (0-5); Neutrophil # 4.12 X10^3/uL (2.7-7.7); Neutrophil % 53.4 % (47-70); Platelet Count 239 K/mm3 (150-450); RBC Distribution Width CV 11.9 % (11.6-14.6); RBC Distribution Width SD 39.6 fl (35.1-43.9); Red Blood Count 4.68 M/mm3 (4.6-6.2); White Blood Count 7.7 K/mm3 (4.4-11.0)
[2022-11-02 16:58] LABS: ALB/GLOB Ratio 0.9 RATIO (0.9-2.4); AST(SGOT) 29 U/L (15-37); Alanine Aminotransfer ALT/SGPT 31 U/L (16-61); Albumin, Serum 3.6 g/dL (3.2-5.0); Alkaline Phosphatase 63 U/L (45-117); Anion Gap 3 (5-15); BUN 21 mg/dL (7-18); BUN/Creat Ratio 13.6 RATIO (10-20); Calcium,Total 9.2 mg/dL (8.5-10.1); Chloride 102 mmol/L (98-107); Creatinine, Serum 1.54 mg/dL (0.70-1.30); EST Glomerular Filtration Rate 48 mL/min (>60); Est Glom Filt Rate - Afr Amer 58 mL/min (>60); GGTP 43 U/L (15-85); Glucose 85 mg/dL (74-106); Potassium 4.3 mmol/L (3.5-5.1); Protein, Total 7.6 g/dL (6.4-8.2); Sodium Level 134 mmol/L (136-145)
[2022-11-06 04:06] LABS: Tacrolimus (FK506) 5.4 ng/mL (2.0-20.0)
== END 2022-11-02 18:00 | disposition home or self-care (01) ==
LOC: LAB 15:29
PROVIDERS: Family Provider Family Medicine; PCP Family Medicine
DX: K76.9 Liver disease, unspecified; Z48.23 Encounter for aftercare following liver transplant; Z94.4 Liver transplant status; Z41.8 Encounter for other procedures for purposes other than remedying health state; E61.2 Magnesium deficiency; E83.30 Disorder of phosphorus metabolism, unspecified; R73.02 Impaired glucose tolerance (oral); Z01.818 Encounter for other preprocedural examination; Z01.812 Encounter for preprocedural laboratory examination
CPT/HCPCS: 36415; 80053; 80197; 82977; 85025

== ENCOUNTER 2023-01-23 12:17 | Outpatient (RCR) | payer MEDICARE, OTHER, SELFPAY ==
[2023-01-23 13:06] LABS: Absolute Lymphocyte Count 2.02 X10^3/uL (0.83-4.51); Absolute Neutrophil Count 3.1 X10^3/uL (2.0-7.7); Basophil# 0.04 X10^3/uL; Basophil% 0.7 % (0-1); Eosinophil# 0.11 X10^3/uL; Eosinophils% 1.9 % (0-5); Hematocrit 42.8 % (40-54); Hemoglobin 14.6 g/dL (13.0-16.5); Lymphocyte # 2.02 X10^3/ul (0.83-4.51); Lymphocyte % 35.1 % (19-41); Mean Corp Hgb Conc 34.1 g/dL (32-36); Mean Corpuscular Hgb 30.9 pg (27.0-32.0); Mean Corpuscular Volume 90.7 fL (80-94); Monocyte# 0.51 X10^3/uL; Monocyte% 8.9 % (0-10); NRBC Flagged by Analyzer 0 % (0-5); Neutrophil # 3.06 X10^3/uL (2.7-7.7); Neutrophil % 53.2 % (47-70); Platelet Count 212 K/mm3 (150-450); RBC Distribution Width CV 12.6 % (11.6-14.6); RBC Distribution Width SD 41.8 fl (35.1-43.9); Red Blood Count 4.72 M/mm3 (4.6-6.2); White Blood Count 5.8 K/mm3 (4.4-11.0)
[2023-01-23 13:33] LABS: ALB/GLOB Ratio 1.1 RATIO (0.9-2.4); AST(SGOT) 28 U/L (15-37); Alanine Aminotransfer ALT/SGPT 26 U/L (16-61); Albumin, Serum 3.9 g/dL (3.2-5.0); Alkaline Phosphatase 55 U/L (45-117); Anion Gap 5 (5-15); BUN 23 mg/dL (7-18); BUN/Creat Ratio 14.8 RATIO (10-20); Calcium,Total 9.2 mg/dL (8.5-10.1); Chloride 103 mmol/L (98-107); Cholesterol 160 mg/dL (200); Creatinine, Serum 1.55 mg/dL (0.70-1.30); EST Glomerular Filtration Rate 47 mL/min (>60); Est Glom Filt Rate - Afr Amer 57 mL/min (>60); GGTP 30 U/L (15-85); Globulin 3.7 g/dL (2.2-4.2); Glucose 89 mg/dL (74-106); High Density Lipoprotein 46 mg/dL; Magnesium 2.2 mg/dL (1.6-2.6); Phosphorus 3.3 mg/dL (2.5-4.9); Potassium 4.6 mmol/L (3.5-5.1); Protein, Total 7.6 g/dL (6.4-8.2); Sodium Level 137 mmol/L (136-145); Triglycerides 99 mg/dL; Very Low Density Lipoprotein 20 mg/dL (5-40)
[2023-01-27 21:06] LABS: Tacrolimus (FK506) 5.8 ng/mL (2.0-20.0)
== END 2023-02-01 18:00 | disposition home or self-care (01) ==
LOC: LAB 12:17
PROVIDERS: Family Provider Family Medicine; PCP Family Medicine
DX: K76.9 Liver disease, unspecified (principal); Z48.23 Encounter for aftercare following liver transplant; Z94.4 Liver transplant status; Z41.8 Encounter for other procedures for purposes other than remedying health state; E61.2 Magnesium deficiency; Z01.812 Encounter for preprocedural laboratory examination; Z01.818 Encounter for other preprocedural examination; R73.02 Impaired glucose tolerance (oral)
CPT/HCPCS: 36415; 80053; 80061; 80197; 82977; 83735; 84100; 85025

== ENCOUNTER 2023-03-15 10:27 | Outpatient (RCR) | payer MEDICARE, SELFPAY ==
[2023-03-08 12:01] LABS: Absolute Lymphocyte Count 2.27 X10^3/uL (0.83-4.51); Absolute Neutrophil Count 4.4 X10^3/uL (2.0-7.7); Basophil# 0.05 X10^3/uL; Basophil% 0.7 % (0-1); Eosinophil# 0.18 X10^3/uL; Eosinophils% 2.4 % (0-5); Hematocrit 42.2 % (40-54); Hemoglobin 14.4 g/dL (13.0-16.5); Lymphocyte # 2.27 X10^3/ul (0.83-4.51); Lymphocyte % 29.9 % (19-41); Mean Corp Hgb Conc 34.1 g/dL (32-36); Mean Corpuscular Hgb 31.5 pg (27.0-32.0); Mean Corpuscular Volume 92.3 fL (80-94); Monocyte# 0.71 X10^3/uL; Monocyte% 9.3 % (0-10); NRBC Flagged by Analyzer 0 % (0-5); Neutrophil # 4.37 X10^3/uL (2.7-7.7); Neutrophil % 57.4 % (47-70); Platelet Count 237 K/mm3 (150-450); RBC Distribution Width CV 12.3 % (11.6-14.6); RBC Distribution Width SD 41.5 fl (35.1-43.9); Red Blood Count 4.57 M/mm3 (4.6-6.2); White Blood Count 7.6 K/mm3 (4.4-11.0)
[2023-03-08 12:51] LABS: AST(SGOT) 27 U/L (15-37); Alanine Aminotransfer ALT/SGPT 27 U/L (16-61); Albumin, Serum 3.7 g/dL (3.2-5.0); Alkaline Phosphatase 64 U/L (45-117); Anion Gap 5 (5-15); BUN 22 mg/dL (7-18); BUN/Creat Ratio 13.6 RATIO (10-20); Calcium,Total 9.1 mg/dL (8.5-10.1); Chloride 104 mmol/L (98-107); Cholesterol 142 mg/dL (200); Creatinine, Serum 1.62 mg/dL (0.70-1.30); EST Glomerular Filtration Rate 45 mL/min (>60); Est Glom Filt Rate - Afr Amer 54 mL/min (>60); GGTP 36 U/L (15-85); Globulin 3.7 g/dL (2.2-4.2); Glucose 94 mg/dL (74-106); High Density Lipoprotein 46 mg/dL; Potassium 4.4 mmol/L (3.5-5.1); Protein, Total 7.4 g/dL (6.4-8.2); Sodium Level 138 mmol/L (136-145); Triglycerides 79 mg/dL; Very Low Density Lipoprotein 16 mg/dL (5-40)
[2023-03-15 11:50] LABS: Magnesium 2.4 mg/dL (1.6-2.6); Phosphorus 3.1 mg/dL (2.5-4.9)
[2023-03-19 14:08] LABS: Tacrolimus (FK506) 7.7 ng/mL (2.0-20.0)
== END 2023-03-15 18:00 | disposition home or self-care (01) ==
LOC: LAB 10:27
PROVIDERS: Family Provider Family Medicine; PCP Family Medicine
DX: Z01.818 Encounter for other preprocedural examination; Z01.812 Encounter for preprocedural laboratory examination; K76.9 Liver disease, unspecified; Z48.23 Encounter for aftercare following liver transplant; Z94.4 Liver transplant status; Z41.8 Encounter for other procedures for purposes other than remedying health state; E61.2 Magnesium deficiency; R73.02 Impaired glucose tolerance (oral)
CPT/HCPCS: 36415; 80053; 80061; 80197; 82977; 83735; 84100; 85025

== ENCOUNTER 2023-05-07 16:57 | Outpatient (RCR) | payer MEDICARE, SELFPAY ==
[2023-05-07 17:21] LABS: Absolute Lymphocyte Count 2.56 X10^3/uL (0.83-4.51); Absolute Neutrophil Count 3.3 X10^3/uL (2.0-7.7); Basophil# 0.05 X10^3/uL; Basophil% 0.8 % (0-1); Eosinophil# 0.11 X10^3/uL; Eosinophils% 1.7 % (0-5); Hemoglobin 14.2 g/dL (13.0-16.5); Lymphocyte # 2.56 X10^3/ul (0.83-4.51); Lymphocyte % 38.4 % (19-41); Mean Corpuscular Hgb 30.5 pg (27.0-32.0); Mean Corpuscular Volume 92.5 fL (80-94); Mean Platelet Vol. 9.7 fl (6.2-12.0); Monocyte# 0.62 X10^3/uL; Monocyte% 9.3 % (0-10); NRBC Flagged by Analyzer 0 % (0-5); Neutrophil % 49.5 % (47-70); Platelet Count 231 K/mm3 (150-450); RBC Distribution Width CV 12.1 % (11.6-14.6); RBC Distribution Width SD 40.4 fl (35.1-43.9); Red Blood Count 4.65 M/mm3 (4.6-6.2); White Blood Count 6.7 K/mm3 (4.4-11.0)
[2023-05-07 18:13] LABS: ALB/GLOB Ratio 1.1 RATIO (0.9-2.4); AST(SGOT) 26 U/L (15-37); Alanine Aminotransfer ALT/SGPT 26 U/L (16-61); Albumin, Serum 3.9 g/dL (3.2-5.0); Alkaline Phosphatase 57 U/L (45-117); Anion Gap 3 (5-15); BUN 24 mg/dL (7-18); BUN/Creat Ratio 15.9 RATIO (10-20); Calcium,Total 9.2 mg/dL (8.5-10.1); Chloride 103 mmol/L (98-107); Creatinine, Serum 1.51 mg/dL (0.70-1.30); EST Glomerular Filtration Rate 49 mL/min (>60); Est Glom Filt Rate - Afr Amer 59 mL/min (>60); GGTP 30 U/L (15-85); Globulin 3.7 g/dL (2.2-4.2); Glucose 83 mg/dL (74-106); Magnesium 2.3 mg/dL (1.6-2.6); Phosphorus 3.4 mg/dL (2.5-4.9); Potassium 4.4 mmol/L (3.5-5.1); Protein, Total 7.6 g/dL (6.4-8.2); Sodium Level 137 mmol/L (136-145)
[2023-05-11 13:08] LABS: Tacrolimus (FK506) 4.4 ng/mL (2.0-20.0)
== END 2023-06-02 18:00 | disposition home or self-care (01) ==
LOC: LAB 16:57
PROVIDERS: Family Provider Family Medicine; PCP Family Medicine
DX: K76.9 Liver disease, unspecified; Z48.23 Encounter for aftercare following liver transplant; Z94.4 Liver transplant status; Z41.8 Encounter for other procedures for purposes other than remedying health state; E61.2 Magnesium deficiency; R73.02 Impaired glucose tolerance (oral); Z01.812 Encounter for preprocedural laboratory examination; Z01.818 Encounter for other preprocedural examination
CPT/HCPCS: 36415; 80053; 80197; 82977; 83735; 84100; 85025

== ENCOUNTER → 2023-05-07 | Outpatient (CLI) | payer MEDICARE, SELFPAY | END | disposition home or self-care (01) | LOC: LAB.FUTURE 17:20 | PROVIDERS: PCP Family Medicine | DX: Z00.00 Encounter for general adult medical examination without abnormal findings (principal) ==

== ENCOUNTER 2023-07-09 08:50 | Outpatient (RCR) | payer MEDICARE, SELFPAY ==
[2023-07-09 09:39] LABS: Absolute Lymphocyte Count 2.11 X10^3/uL (0.83-4.51); Absolute Neutrophil Count 2.9 X10^3/uL (2.0-7.7); Basophil# 0.04 X10^3/uL; Basophil% 0.7 % (0-1); Eosinophil# 0.16 X10^3/uL; Eosinophils% 2.8 % (0-5); Hematocrit 44.5 % (40-54); Hemoglobin 15.1 g/dL (13.0-16.5); Lymphocyte # 2.11 X10^3/ul (0.83-4.51); Lymphocyte % 36.3 % (19-41); Mean Corp Hgb Conc 33.9 g/dL (32-36); Mean Corpuscular Hgb 31.1 pg (27.0-32.0); Mean Corpuscular Volume 91.6 fL (80-94); Mean Platelet Vol. 10.1 fl (6.2-12.0); Monocyte% 10.3 % (0-10); NRBC Flagged by Analyzer 0 % (0-5); Neutrophil # 2.88 X10^3/uL (2.7-7.7); Neutrophil % 49.6 % (47-70); Platelet Count 229 K/mm3 (150-450); RBC Distribution Width CV 11.9 % (11.6-14.6); RBC Distribution Width SD 40.2 fl (35.1-43.9); Red Blood Count 4.86 M/mm3 (4.6-6.2); White Blood Count 5.8 K/mm3 (4.4-11.0)
[2023-07-09 10:33] LABS: AST(SGOT) 30 U/L (15-37); Alanine Aminotransfer ALT/SGPT 28 U/L (16-61); Albumin, Serum 3.7 g/dL (3.2-5.0); Alkaline Phosphatase 62 U/L (45-117); Anion Gap 4 (5-15); BUN 23 mg/dL (7-18); BUN/Creat Ratio 15.1 RATIO (10-20); Calcium,Total 9.3 mg/dL (8.5-10.1); Chloride 106 mmol/L (98-107); Cholesterol 146 mg/dL (200); Creatinine, Serum 1.52 mg/dL (0.70-1.30); EST Glomerular Filtration Rate 48 mL/min (>60); Est Glom Filt Rate - Afr Amer 58 mL/min (>60); GGTP 30 U/L (15-85); Globulin 3.8 g/dL (2.2-4.2); Glucose 101 mg/dL (74-106); High Density Lipoprotein 41 mg/dL; Magnesium 2.2 mg/dL (1.6-2.6); Phosphorus 2.7 mg/dL (2.5-4.9); Potassium 4.2 mmol/L (3.5-5.1); Protein, Total 7.5 g/dL (6.4-8.2); Sodium Level 138 mmol/L (136-145); Triglycerides 108 mg/dL; Very Low Density Lipoprotein 22 mg/dL (5-40)
[2023-07-12 14:10] LABS: Tacrolimus (FK506) 4.2 ng/mL (2.0-20.0)
== END 2023-07-09 18:00 | disposition home or self-care (01) ==
LOC: LAB 08:50
PROVIDERS: Family Provider Family Medicine; PCP Family Medicine
DX: Z01.818 Encounter for other preprocedural examination (principal); K76.9 Liver disease, unspecified; Z48.23 Encounter for aftercare following liver transplant; Z94.4 Liver transplant status; Z41.8 Encounter for other procedures for purposes other than remedying health state; E61.2 Magnesium deficiency; R73.02 Impaired glucose tolerance (oral); Z01.812 Encounter for preprocedural laboratory examination
CPT/HCPCS: 36415; 80053; 80061; 80197; 82977; 83735; 84100; 85025

== ENCOUNTER 2023-11-06 10:30 | Outpatient (RCR) | payer MEDICARE, SELFPAY ==
--- NOTE | 2023-09-24 15:35 | HP.PTEVAL ---
Patient's Visit Information Visit Information Visit Information: XIOMARA CHENG is a 72 year old M referred to Physical Therapy by Dr. Asif Mullins MD with a diagnosis of BPV. Date of Evaluation: 09/24/23 Physical Therapist: Asif Welch, DPT, OCS, CSCS Visit Plan Frequency: 1x/Week Duration: 4-6 Weeks Plan: weekly as needed x 4-6 for positional treatments as helpful. Treated R Nick today and next session check positional and oculomotor as needed. Subjective Subjective: I have dizzyness, started 2 yrs ago and sent to radiology transporter, diagnosed with tachycardia and meds cleared it up. Saw radiology transporter and not coming from heart and sent back to dr. Mullins. Sent for PT. Dizzyness has gotten worse lately for last couple months. had a day where nothing was right and sought treatment again. Gets symptoms several days per week. Often times with head movement or changing position bending over, turning quickly. Lying down at night is not an issue, looking up is not a problem 3except now and then. Dizzyness is short lived but has beeter adn worse days. Dizzyness is not spinning but more unstable and effects balance. 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 no regualr exercises but fairly active. Activities are pretty normal but on bad days will avoid most things active. No nueropathy, no DM Objective Objective: Walks I and quickly into PT without balance deficits. Trasnfers I bed and chair. Steps reciprocally without UE. cervical aROM WFL and without deficits UE AROM WFL. Good symmetrical strength - L HD + R HD for 8 seconds eye discomfort and possible up torsionaly nystagmus, treated with R nick and then - HD test. Balance/Special Test Scores Functional Gait Assessment Score: 30 % Disability: 0 CATSIB Score (Max score 120 seconds): 120 Dizziness Score: 16 Goals Goal 1:: Vertigo abolished. Goal Time Frame: 4-6 Weeks Goal 2:: DHI score 2 or better Goal Time Frame: 4-6 Weeks Rehabilitation Potential Physical Therapy Diagnosis: positional dizzyness limitinf comfortable funciton. Rehabilitation Potential: Good Anticipated Interventions Patient/Client Instruction: Educate patient on: Condition For the Purpose of:: To increase tolerance to activity/condition/position Comment: positional treatments/ex For the Purpose of:: To increase tolerance to activity/condition/position Text: Thank you for the opportunity to evaluate your patient. For Medicare and Medicare HMO plans, please review the plan of care and approve it. It will need to be FAXED BACK to us at [phone] for Medicare purposes. For Medicare only, by signing this I certify the plan of care. Please let me know if there are questions or concerns regarding this plan of care. Physician Signature: Date:
--- NOTE | 2023-11-06 10:54 | HP.PTDCSUM_ITS ---
Discharge Summary D/C summary: It has been my pleasure to treat XIOMARA CHENG referred by Dr. Asif Mullins MD, with the diagnosis of BPV for a total of 3 visit(s). Discharge Date: 11/06/23 Please see the following information for a summary of their discharge status. Subjective Subjective: Wanted to give exer cises a longer time to work. they may have helped a little, but not much.Intermittent symptoms still modifying his activity a little bit. Still gets dizzyness(no spinning) feeling like head moving for short time, bedning downbut not til coming back up. Turning while standing can also cause it but not always. bed is not a problem.\Been doing exercises at home and they make him a little dizzy. Rated at 3/10 for 15 seconds. Exercises are 20% better than a month ago. Dizzyness overall is 30% better. No f/u or other treatments. On blood pressure meds and been on them for a year. 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 Will have another test ordered by recyclable materials collector. Overall Improvement % Improvement: 30 Objective Objective/Function: - B hallpike lee - roll oculomotor unchanged from last time. up from head down still the major causative factor communicated to me and not when bending over. Goals Goal 1:: Vertigo abolished. Goal Progress: Not Progressing Goal 2:: DHI score 2 or better Goal Progress: Not Progressing Plan Plan: d/c, Does not appear to be a vestibular problem. D/C Information Discharge Comments: Does not appear to be a vestibular issue d/c sentence: If there are questions or concerns regarding this patient's physical therapy, please feel free to call me at [phone]. Thank you for the referral of this patient. Sincerely, Asif Welch, DPT, OCS, CSCS Balance/Gait/Functional tests Balance/Special Test Scores Functional Gait Assessment Score: 30 % Disability: 0 CATSIB Score (Max score 120 seconds): 120 Dizziness Score: 18 Improvement % Improvement: 30
== END 2023-11-06 19:00 | disposition home or self-care (01) ==
LOC: PT 10:30
PROVIDERS: PCP Family Medicine; Referring Provider Family Medicine; Visit Provider Family Medicine
DX: R42 Dizziness and giddiness (principal)
CPT/HCPCS: 97161; 97530

== ENCOUNTER 2024-02-12 11:03 | Outpatient (RCR) | payer MEDICARE, SELFPAY | END 2024-02-12 18:00 | disposition home or self-care (01) | LOC: LAB 11:03 | PROVIDERS: PCP Family Medicine | DX: K76.9 Liver disease, unspecified (principal); Z48.23 Encounter for aftercare following liver transplant; Z94.4 Liver transplant status; Z41.8 Encounter for other procedures for purposes other than remedying health state; E61.2 Magnesium deficiency; E83.30 Disorder of phosphorus metabolism, unspecified; R73.02 Impaired glucose tolerance (oral) ==

== ENCOUNTER 2024-02-13 11:35 | Outpatient (RCR) | payer MEDICARE, SELFPAY ==
[2024-02-13 12:20] LABS: Absolute Lymphocyte Count 2.01 X10^3/uL (0.83-4.51); Absolute Neutrophil Count 3.2 X10^3/uL (2.0-7.7); Basophil# 0.04 X10^3/uL; Basophil% 0.7 % (0-1); Eosinophil# 0.15 X10^3/uL; Eosinophils% 2.5 % (0-5); Hematocrit 41.5 % (40-54); Hemoglobin 13.8 g/dL (13.0-16.5); Lymphocyte # 2.01 X10^3/ul (0.83-4.51); Lymphocyte % 33.6 % (19-41); Mean Corp Hgb Conc 33.3 g/dL (32-36); Mean Corpuscular Volume 93.3 fL (80-94); Mean Platelet Vol. 9.8 fl (6.2-12.0); Monocyte# 0.54 X10^3/uL; NRBC Flagged by Analyzer 0 % (0-5); Neutrophil # 3.24 X10^3/uL (2.7-7.7); Platelet Count 201 K/mm3 (150-450); RBC Distribution Width CV 12.1 % (11.6-14.6); Red Blood Count 4.45 M/mm3 (4.6-6.2)
[2024-02-13 12:49] LABS: ALB/GLOB Ratio 1.1 RATIO (0.9-2.4); AST(SGOT) 23 U/L (15-37); Alanine Aminotransfer ALT/SGPT 22 U/L (16-61); Albumin, Serum 3.7 g/dL (3.2-5.0); Alkaline Phosphatase 59 U/L (45-117); Anion Gap 2 (5-15); BUN 24 mg/dL (7-18); BUN/Creat Ratio 15.4 RATIO (10-20); Calcium,Total 9.3 mg/dL (8.5-10.1); Chloride 105 mmol/L (98-107); Creatinine, Serum 1.56 mg/dL (0.70-1.30); EST Glomerular Filtration Rate 47 mL/min (>60); Est Glom Filt Rate - Afr Amer 57 mL/min (>60); Globulin 3.4 g/dL (2.2-4.2); Glucose 101 mg/dL (74-106); Magnesium 2.1 mg/dL (1.6-2.6); Phosphorus 2.9 mg/dL (2.5-4.9); Potassium 4.5 mmol/L (3.5-5.1); Protein, Total 7.1 g/dL (6.4-8.2); Sodium Level 137 mmol/L (136-145)
[2024-02-20 00:07] LABS: GGTP 27 IU/L (0-65); Tacrolimus (FK506) 3.5 ng/mL (2.0-20.0)
== END 2024-02-13 18:00 | disposition home or self-care (01) ==
LOC: LAB 11:35
PROVIDERS: PCP Family Medicine; Referring Provider Family Medicine; Visit Provider Family Medicine
DX: D84.9 Immunodeficiency, unspecified (principal)
CPT/HCPCS: 80053; 80197; 82977; 83735; 84100; 85025

== ENCOUNTER 2024-08-19 08:09 | Outpatient (RCR) | payer MEDICARE, SELFPAY ==
[2024-08-19 09:14] LABS: Absolute Lymphocyte Count 2.03 X10^3/uL (0.83-4.51); Absolute Neutrophil Count 3.4 X10^3/uL (2.0-7.7); Basophil# 0.04 X10^3/uL; Basophil% 0.6 % (0-1); Eosinophil# 0.13 X10^3/uL; Eosinophils% 2.1 % (0-5); Hematocrit 40.9 % (40-54); Lymphocyte # 2.03 X10^3/ul (0.83-4.51); Lymphocyte % 32.3 % (19-41); Mean Corp Hgb Conc 34.2 g/dL (32-36); Mean Corpuscular Volume 90.5 fL (80-94); Mean Platelet Vol. 10.4 fl (6.2-12.0); Monocyte# 0.63 X10^3/uL; NRBC Flagged by Analyzer 0 % (0-5); Neutrophil # 3.44 X10^3/uL (2.7-7.7); Neutrophil % 54.7 % (47-70); Platelet Count 198 K/mm3 (150-450); RBC Distribution Width CV 12.2 % (11.6-14.6); RBC Distribution Width SD 40.3 fl (35.1-43.9); Red Blood Count 4.52 M/mm3 (4.6-6.2); White Blood Count 6.3 K/mm3 (4.4-11.0)
[2024-08-19 15:05] LABS: ALB/GLOB Ratio 1.4 RATIO (0.9-2.4); AST(SGOT) 26 U/L (<=37); Alanine Aminotransfer ALT/SGPT 16 U/L (<=46); Albumin, Serum 4.2 g/dL (3.4-4.8); Alkaline Phosphatase 62 U/L (40-129); Anion Gap 8 (5-15); BUN 22 mg/dL (4-19); BUN/Creat Ratio 13.6 RATIO (10-20); Calcium,Total 9.4 mg/dL (7.6-11.0); Carbon Dioxide 27.3 mmol/L (21.0-32.0); Chloride 102 mmol/L (98-108); Creatinine, Serum 1.63 mg/dL (0.70-1.20); EST Glomerular Filtration Rate 44 (>60); Globulin 2.9 g/dL (2.2-4.2); Glucose 90 mg/dL (70-99); Phosphorus 2.9 mg/dL (2.7-4.5); Potassium 4.8 mmol/L (3.3-5.1); Protein, Total 7.1 g/dL (5.9-8.4); Sodium Level 137 mmol/L (133-145); Total Bilirubin 0.75 mg/dL (0.00-1.30)
[2024-08-22 18:08] LABS: Tacrolimus (FK506) 9.2 ng/mL (5.0-20.0)
== END 2024-08-19 18:00 | disposition home or self-care (01) ==
LOC: LAB 08:09
PROVIDERS: PCP Family Medicine
DX: K76.9 Liver disease, unspecified (principal); Z48.23 Encounter for aftercare following liver transplant; Z94.4 Liver transplant status; N18.31 Chronic kidney disease, stage 3a; Z41.8 Encounter for other procedures for purposes other than remedying health state
CPT/HCPCS: 36415; 80053; 80197; 84100; 85025

== ENCOUNTER 2024-11-18 15:53 | Outpatient (RCR) | payer MEDICARE, SELFPAY ==
[2024-11-18 16:24] LABS: Hematocrit 42.2 % (40-54); Hemoglobin 14.2 g/dL (13.0-16.5); Immature Granulocytes Count 0.030 X10^3/uL (0.0-0.0); Mean Corp Hgb Conc 33.6 g/dL (32-36); Mean Corpuscular Volume 91.3 fL (80-94); Mean Platelet Vol. 9.7 fl (6.2-12.0); NRBC Flagged by Analyzer 0 % (0-5); Platelet Count 238 K/mm3 (150-450); RBC Distribution Width CV 12.6 % (11.6-14.6); RBC Distribution Width SD 41.6 fl (35.1-43.9); Red Blood Count 4.62 M/mm3 (4.6-6.2); White Blood Count 5.7 K/mm3 (4.4-11.0)
[2024-11-18 16:58] LABS: AST(SGOT) 25 U/L (<=37); Alanine Aminotransfer ALT/SGPT 15 U/L (<=46); Albumin, Serum 4.2 g/dL (3.4-4.8); Alkaline Phosphatase 61 U/L (40-129); Anion Gap 9 (5-15); BUN 20 mg/dL (4-19); BUN/Creat Ratio 10.5 RATIO (10-20); Calcium,Total 9.7 mg/dL (7.6-11.0); Carbon Dioxide 26.0 mmol/L (21.0-32.0); Chloride 102 mmol/L (98-108); Globulin 3.1 g/dL (2.2-4.2); Glucose 89 mg/dL (70-99); Potassium 5.0 mmol/L (3.3-5.1)
== END 2024-12-02 18:00 | disposition home or self-care (01) ==
LOC: LAB 15:53
PROVIDERS: PCP Family Medicine
DX: K76.9 Liver disease, unspecified (principal); Z48.23 Encounter for aftercare following liver transplant; Z94.4 Liver transplant status; Z41.8 Encounter for other procedures for purposes other than remedying health state; E61.2 Magnesium deficiency; E83.30 Disorder of phosphorus metabolism, unspecified; R73.02 Impaired glucose tolerance (oral); Z01.812 Encounter for preprocedural laboratory examination; Z01.818 Encounter for other preprocedural examination
CPT/HCPCS: 36415; 80053; 80197; 84100; 85025

== ENCOUNTER 2025-02-17 08:12 | Outpatient (RCR) | payer MEDICARE, SELFPAY ==
[2025-02-17 09:38] LABS: Hematocrit 42.9 % (40-54); Hemoglobin 14.8 g/dL (13.0-16.5); Immature Granulocytes Count 0.020 X10^3/uL (0.0-0.0); Mean Corp Hgb Conc 34.5 g/dL (32-36); Mean Corpuscular Volume 91.1 fL (80-94); Mean Platelet Vol. 9.7 fl (6.2-12.0); NRBC Flagged by Analyzer 0 % (0-5); Platelet Count 255 K/mm3 (150-450); RBC Distribution Width CV 12.1 % (11.6-14.6); RBC Distribution Width SD 40.7 fl (35.1-43.9); Red Blood Count 4.71 M/mm3 (4.6-6.2); White Blood Count 6.7 K/mm3 (4.4-11.0)
[2025-02-17 10:08] LABS: AST(SGOT) 27 U/L (<=37); Alanine Aminotransfer ALT/SGPT 16 U/L (<=46); Albumin, Serum 4.1 g/dL (3.4-4.8); Alkaline Phosphatase 65 U/L (40-129); Anion Gap 10 (5-15); BUN 24 mg/dL (4-19); BUN/Creat Ratio 14.0 RATIO (10-20); Calcium,Total 9.4 mg/dL (7.6-11.0); Carbon Dioxide 26.0 mmol/L (21.0-32.0); Chloride 102 mmol/L (98-108); Globulin 3.0 g/dL (2.2-4.2); Glucose 89 mg/dL (70-99); Potassium 4.4 mmol/L (3.3-5.1)
== END 2025-02-17 18:00 | disposition home or self-care (01) ==
LOC: LAB 08:12
PROVIDERS: PCP Family Medicine
DX: K76.9 Liver disease, unspecified (principal); Z48.23 Encounter for aftercare following liver transplant; Z94.4 Liver transplant status; Z41.8 Encounter for other procedures for purposes other than remedying health state; E61.2 Magnesium deficiency; R73.02 Impaired glucose tolerance (oral); E83.30 Disorder of phosphorus metabolism, unspecified; Z01.812 Encounter for preprocedural laboratory examination; Z01.818 Encounter for other preprocedural examination
CPT/HCPCS: 36415; 80053; 80197; 84100; 85025